=== PATIENT | male | born 1945 | race Caucasian/White ===

== ENCOUNTER 2022-11-21 21:53 | Inpatient (IN) | payer MEDICARE, OTHER ==
[2022-11-21] MEDS ORDERED: SODIUM CHLORIDE 0.9% 1,000 ML IV ONE (22:37)
[2022-11-21] MEDS ORDERED: KETOROLAC 15 MG/ML 1 ML VIAL IVP STA (22:37)
[2022-11-21] MEDS ORDERED: FAMOTIDINE 20 MG/2 ML VIAL IV STA (22:38)
[2022-11-21] MEDS ORDERED: ONDANSETRON 4 MG/2 ML VIAL IVP STA (22:38)
[2022-11-21 23:48] LABS: Appearance,Urine Clear (Clear); Basophils % (A) 0 %; Bilirubin,Urine Negative (Negative); Blood,Urine Negative (Negative); Color,Urine Yellow; Eosinophils % (A) 0 %; Glucose,Urine (UA) Negative (Negative); HCT 35.9 % (39.0-53.0); HGB 12.3 gm/dL (13.0-17.5); Ketones,Urine Negative (Negative); Leukocyte Esterase,Urine Negative (Negative); Lymphocytes # (A) 0.1 k/uL (1.0-4.8); Lymphocytes % (A) 2 %; MCH 30.8 pg (25.0-35.0); MCHC 34.3 g/dL (31.0-37.0); MCV 89.8 fL (80.0-100.0); Monocytes # (A) 0.3 k/uL (0-1.0); Monocytes % (A) 5 %; Neutrophils # (A) 5.6 k/uL (1.3-7.7); Neutrophils % (A) 91 %; Nitrite,Urine Negative (Negative); PH, Urine 5.5 (5.0-8.0); Platelet Count 343 k/uL (150-450); Protein,Urine Trace (Negative); RDW 14.5 % (11.5-15.5); Specific Gravity,Urine 1.018 (1.001-1.035); Urobilinogen,Urine <2.0 mg/dL (<2.0); WBC 6.2 k/uL (3.8-10.6)
[2022-11-21 23:51] LABS: ALT 17 U/L (4-49); AST 25 U/L (17-59); African American GFR (CKD) 81 (>60 ml/min/1.73 sqM); Albumin 2.3 g/dL (3.5-5.0); Alkaline Phosphatase 113 U/L (38-126); Anion Gap 11 mmol/L; Blood Urea Nitrogen 23 mg/dL (9-20); Calcium 7.3 mg/dL (8.4-10.2); Carbon Dioxide 17 mmol/L (22-30); Chloride 93 mmol/L (98-107); Glucose 75 mg/dL (74-99); Non-African American GFR(CKD) 70 (>60 ml/min/1.73 sqM); Potassium 4.1 mmol/L (3.5-5.1); Sodium 121 mmol/L (137-145); Total Bilirubin 0.4 mg/dL (0.2-1.3); Total Protein 4.5 g/dL (6.3-8.2)
--- NOTE | 2022-11-22 00:37 | ED ---
General Adult HPI - General Chief complaint: Weakness Stated complaint: N/V/D, Weakness Time Seen by Provider: 11/21/22 22:16 Source: patient, EMS, RN notes reviewed Mode of arrival: EMS Limitations: no limitations - History of Present Illness Initial comments: 77-year-old male with past medical history significant for melanoma presents the emergency department with a chief complaint of nausea vomiting and diarrhea 1 week. Patient called his PCP earlier this afternoon and reports that some medication adjustments-[his symptoms were due to medications. He reports left lower quadrant abdominal pain. Denies any known fevers however has felt chilled. He denies any chest pain, dizziness, lightheadedness, melena, hematochezia. Patient reports that he goes to [facility] for his care. - Related Data Home Medications Medication Instructions Recorded Confirmed Atorvastatin [Lipitor] 10 mg PO HS 11/22/22 11/22/22 Clopidogrel Bisulfate [Clopidogrel] 75 mg PO DAILY 11/22/22 11/22/22 Famotidine 20 mg PO DAILY 11/22/22 11/22/22 Gabapentin [Neurontin] 100 mg PO TID 11/22/22 11/22/22 HYDROcodone/APAP 5-325MG [[place] 1 tab PO TID PRN 11/22/22 11/22/22 5-325] Lisinopril-Hctz 20-12.5 mg 1 tab PO DAILY 11/22/22 11/22/22 [Zestoretic 20-12.5] Morphine Sulfate Ir [MSIR] 15 mg PO Q6H PRN 11/22/22 11/22/22 Prochlorperazine [Compazine] 10 mg PO Q6H PRN 11/22/22 11/22/22 Allergies Allergy/AdvReac Type Severity Reaction Status Date / Time No Known Allergies Allergy Verified 11/22/22 09:31 Review of Systems ROS Statement: Those systems with pertinent positive or pertinent negative responses have been documented in the HPI. ROS Other: All systems not noted in ROS Statement are negative. 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 Eyes PERRL, EOMI intact, mucous membranes moist Respiratory: Lungs clear to auscultation bilaterally Cardiovascular: Heart rate regular rate and rhythm Abdominal: Soft without guarding or rebound, left lower quadrant abdominal tenderness Extremities: Normal inspection with full range of motion and normal capillary refill Neuroogic: alert and oriented 3, CN II-XII intact, able to ambulate with steady gait Skin: warm dry and intact with normal color Limitations: no limitations Course Vital Signs 11/21/22 11/21/22 11/22/22 22:04 23:53 06:20 Temperature 96.8 F L Pulse Rate 68 64 63 Respiratory 18 18 18 Rate Blood Pressure 101/45 94/44 99/52 O2 Sat by Pulse 95 96 96 Oximetry 11/22/22 07:00 Temperature 98.2 F Pulse Rate 93 Respiratory 18 Rate Blood Pressure 87/56 O2 Sat by Pulse 96 Oximetry - Reevaluation(s) Reevaluation #1: 11/22/22 00:37 Patient reevaluated and updated on laboratory studies. Aware awaiting CT imaging results. Reevaluation #2: 11/22/22 02:57 Patient reevaluated. Patient resting comfortably. Aware awaiting CT results. Reevaluation #3: 11/22/22 04:01 patient reevaluated. Patient aware awaiting CT results. Agreeable with the plan for admission. Medical Decision Making - Medical Decision Making Was pt. sent in by a medical professional or institution (, PA, DIE TURNER, urgent care, hospital, or chcf...) When possible be specific @ -[No] Did you speak to anyone other than the patient for history (EMS, parent, family, police, friend...)? What history was obtained from this source @ -Patients Did you review nursing and triage notes (agree or disagree)? Why? @ -[I reviewed and agree with nursing and triage notes] Were old charts reviewed (outside hosp., previous admission, EMS record, old EKG , old radiological studies, urgent care reports/EKG's, chcf records)? Report findings @ -[No old charts were reviewed] Differential Diagnosis (chest pain, altered mental status, abdominal pain women, abdominal pain men, vaginal bleeding, weakness, fever, dyspnea, syncope, headache, dizziness, GI bleed, back pain, seizure, CVA, palpatations, mental hea lth, musculoskeletal)? @ -[not applicable] EKG interpreted by me (3pts min.). @ -[As above] X-rays interpreted by me (1pt min.). @ -[None done] CT interpreted by me (1pt min.). @ -YES U/S interpreted by me (1pt. min.). @ -[None done] What testing was considered but not performed or refused? (CT, X-rays, U/S, labs)? Why? @ -[None] What meds were considered but not given or refused? Why? @ -[None] Did you discuss the management of the patient with other professionals (professionals i.e. , PA, DIE TURNER, lab, RT, psych nurse, social work case manager, geophysical data technician, teacher, risk officer, caser in)? Give summary @ -Case discussed with Dr. Gomez who agrees and accepts the patient for admission Was smoking cessation discussed for >3mins.? @ -[No] Was critical care preformed (if so, how long)? @ -[No] Were there social determinants of health that impacted care today? How? (Homelessness, low income, unemployed, alcoholism, drug addiction, transportation, low edu. Level, literacy, decrease access to med. care, custodial, rehab)? @ -[No] Was there de-escalation of care discussed even if they declined (Discuss DNR or withdrawal of care, Hospice)? DNR status @ -[No] What co-morbidities impacted this encounter? (DM, HTN, Smoking, COPD, CAD, Cancer, CVA, ARF, Chemo, Hep., AIDS, mental health diagnosis, sleep apnea, morbid obesity)? @ -Cancer Was patient admitted / discharged? Hospital course, mention meds given and route, prescriptions, significant lab abnormalities, going to OR and other pertinent info. @ -Admission. This is a 77-year-old male with past medical history significant for melanoma who presents the emergency department with nausea, vomiting, diarrhea. Patient had a thorough history and physical exam performed. Patient persistently hypotensive while in the ED. Heart rate regular rate and rhythm, lungs clear to auscultation, left lower quadrant abdominal tenderness. No guarding no rebound. Patient had laboratory studies which revealed WBC 6.2, hemoglobin 12.3 sodium is 121, potassium 4.1, chloride 93 BUN 23, creatinine 1.04 lactic acid 1.4 urinalysis negative. Covid influenza RSV negative. I interpreted the following: CT abdomen and pelvis reveals marked distention of the gallbladder with mild intrahepatic biliary dilatation, there is extensive distention of the colon which is filled with liquid stool Suggestive of low grade: Acute obstruction. I discussed the results in detail with the patient patient verbalized understanding all questions addressed. The agreeable with the plan for admission. Case discussed with Dr. Michele Macdonald who agrees and accepts the patient for admission with consult to general surgery. Patient will be kept nothing by mouth. Patient was given Toradol, Pepcid, with symptomatic improvement. Case was discussed with Dr FERGUSON., ECP who agrees with plan of care Undiagnosed new problem with uncertain prognosis? @ -[No] Drug Therapy requiring intensive monitoring for toxicity (Heparin, Nitro, Insulin, Cardizem)? @ -[No] Were any procedures done? @ -[No] Diagnosis/symptom? @ Small Bowel obstruction - Nausea, Vomiting, Diarrhea -Hyponatremia Acute, or Chronic, or Acute on Chronic? @ -Acute Uncomplicated (without systemic symptoms) or Complicated (systemic symptoms)? @ -Uncomplicated Side effects of treatment? @ -[No] Exacerbation, Progression, or Severe Exacerbation? @ -[No] Poses a threat to life or bodily function? How? (Chest pain, USA, SC, pneumonia, PE, COPD, DKA, ARF, appy, cholecystitis, CVA, Diverticulitis, Homicidal, Suicidal, threat to staff... and all critical care pts) @ -Yes, SBO - Lab Data Result diagrams: 11/21/22 23:07 11/21/22 23:07 Lab Results 11/21/22 11/21/22 11/21/22 Range/Units 23:07 23:07 23:07 WBC 6.2 (3.8-10.6) k/uL RBC 4.00 L (4.30-5.90) m/uL Hgb 12.3 L (13.0-17.5) gm/dL Hct 35.9 L (39.0-53.0) % MCV 89.8 (80.0-100.0) fL MCH 30.8 (25.0-35.0) pg MCHC 34.3 (31.0-37.0) g/dL RDW 14.5 (11.5-15.5) % Plt Count 343 (150-450) k/uL MPV 8.0 Neutrophils % 91 % Lymphocytes % 2 % Monocytes % 5 % Eosinophils % 0 % Basophils % 0 % Neutrophils # 5.6 (1.3-7.7) k/uL Lymphocytes # 0.1 L (1.0-4.8) k/uL Monocytes # 0.3 (0-1.0) k/uL Eosinophils # 0.0 (0-0.7) k/uL Basophils # 0.0 (0-0.2) k/uL Sodium 121 L (137-145) mmol/L Potassium 4.1 (3.5-5.1) mmol/L Chloride 93 L (98-107) mmol/L Carbon Dioxide 17 L (22-30) mmol/L Anion Gap 11 mmol/L BUN 23 H (9-20) mg/dL Creatinine 1.04 (0.66-1.25) mg/dL Est GFR (CKD-EPI)AfAm 81 (>60 ml/min/1.73 sqM) Est GFR (CKD-EPI)NonAf 70 (>60 ml/min/1.73 sqM) Glucose 75 (74-99) mg/dL Plasma Lactic Acid Lionel (0.7-2.0) mmol/L Calcium 7.3 L (8.4-10.2) mg/dL Total Bilirubin 0.4 (0.2-1.3) mg/dL AST 25 (17-59) U/L ALT 17 (4-49) U/L Alkaline Phosphatase 113 (38-126) U/L Total Protein 4.5 L (6.3-8.2) g/dL Albumin 2.3 L (3.5-5.0) g/dL Urine Color Yellow Urine Appearance Clear (Clear) Urine pH 5.5 (5.0-8.0) Ur Specific [place] 1.018 (1.001-1.035) Urine Protein Trace H (Negative) Urine Glucose (UA) Negative (Negative) Urine Ketones Negative (Negative) Urine Blood Negative (Negative) Urine Nitrite Negative (Negative) Urine Bilirubin Negative (Negative) Urine Urobilinogen <2.0 (<2.0) mg/dL Ur Leukocyte Esterase Negative (Negative) Influenza Type A (PCR) (Not Detectd) Influenza Type B (PCR) (Not Detectd) RSV (PCR) (Not Detectd) SARS-CoV-2 (PCR) (Not Detectd) 11/21/22 11/21/22 Range/Units 23:07 23:07 WBC (3.8-10.6) k/uL RBC (4.30-5.90) m/uL Hgb (13.0-17.5) gm/dL Hct (39.0-53.0) % MCV (80.0-100.0) fL MCH (25.0-35.0) pg MCHC (31.0-37.0) g/dL RDW (11.5-15.5) % Plt Count (150-450) k/uL MPV Neutrophils % % Lymphocytes % % Monocytes % % Eosinophils % % Basophils % % Neutrophils # (1.3-7.7) k/uL Lymphocytes # (1.0-4.8) k/uL Monocytes # (0-1.0) k/uL Eosinophils # (0-0.7) k/uL Basophils # (0-0.2) k/uL Sodium (137-145) mmol/L Potassium (3.5-5.1) mmol/L Chloride (98-107) mmol/L Carbon Dioxide (22-30) mmol/L Anion Gap mmol/L BUN (9-20) mg/dL Creatinine (0.66-1.25) mg/dL Est GFR (CKD-EPI)AfAm (>60 ml/min/1.73 sqM) Est GFR (CKD-EPI)NonAf (>60 ml/min/1.73 sqM) Glucose (74-99) mg/dL Plasma Lactic Acid Lionel 1.4 (0.7-2.0) mmol/L Calcium (8.4-10.2) mg/dL Total Bilirubin (0.2-1.3) mg/dL AST (17-59) U/L ALT (4-49) U/L Alkaline Phosphatase (38-126) U/L Total Protein (6.3-8.2) g/dL Albumin (3.5-5.0) g/dL Urine Color Urine Appearance (Clear) Urine pH (5.0-8.0) Ur Specific [place] (1.001-1.035) Urine Protein (Negative) Urine Glucose (UA) (Negative) Urine Ketones (Negative) Urine Blood (Negative) Urine Nitrite (Negative) Urine Bilirubin (Negative) Urine Urobilinogen (<2.0) mg/dL Ur Leukocyte Esterase (Negative) Influenza Type A (PCR) Not Detected (Not Detectd) Influenza Type B (PCR) Not Detected (Not Detectd) RSV (PCR) Not Detected (Not Detectd) SARS-CoV-2 (PCR) Not Detected (Not Detectd) Disposition Clinical Impression: Nausea and vomiting, Diarrhea, Hyponatremia, Small bowel obstruction Disposition: ADMITTED IP TO THIS HOSP Condition: Fair Is patient prescribed a controlled substance at d/c from ED?: No Time of Disposition: 04:01
[2022-11-22] MEDS ORDERED: SODIUM CHLORIDE 0.9% 1,000 ML IV ONE (03:42)
[2022-11-22] MEDS ORDERED: ONDANSETRON 4 MG/2 ML VIAL IVP PRN (03:45)
[2022-11-22] MEDS ORDERED: NALOXONE 0.4 MG/ML 1 ML VIAL IV PRN (03:45)
[2022-11-22] MEDS ORDERED: MORPHINE SULFATE 4 MG/ML SYRINGE IVP STA (04:00)
[2022-11-22] MEDS ORDERED: FAMOTIDINE 20 MG/2 ML VIAL IV STA (04:00)
[2022-11-22] MEDS: SODIUM CHLORIDE 0.9% 1,000 ML IV SCH ×2 (04:13→17:49)
--- NOTE | 2022-11-22 04:18 | CT ---
EXAM: CT Abdomen and Pelvis With Intravenous Contrast CLINICAL HISTORY: ITS.REASON CT Reason: LLQ abdominal pain TECHNIQUE: Axial computed tomography images of the abdomen and pelvis with intravenous contrast. CTDI is 12.5 mGy and DLP is 610 mGy-cm. This CT exam was performed using one or more of the following dose reduction techniques: automated exposure control, adjustment of the mA and/or kV according to patient size, and/or use of iterative reconstruction technique. COMPARISON: No relevant prior studies available. FINDINGS: Lung bases: Unremarkable. No mass. No consolidation. ABDOMEN: Liver: See below. Gallbladder and bile ducts: Marked distention of the gallbladder with mild intrahepatic biliary ductal dilatation. No calcified stones. Pancreas: Unremarkable. No mass. No ductal dilation. Spleen: Unremarkable. No splenomegaly. Adrenals: Unremarkable. No mass. Kidneys and ureters: 3.2 x 2.3 cm hypodensity midpole left kidney. 4 x 4.1 cm upper pole left renal hypodensity. No hydronephrosis. Stomach and bowel: There is extensive distention of the colon which is filled with liquid stool. No mucosal thickening. PELVIS: Appendix: No findings to suggest acute appendicitis. Bladder: Unremarkable. No mass. Reproductive: Unremarkable as visualized. ABDOMEN and PELVIS: Intraperitoneal space: Unremarkable. No free air. No significant fluid collection. Bones/joints: No acute fracture. No dislocation. Soft tissues: Unremarkable. Vasculature: Mild atheromatous plaque within the abdominal aorta with high-grade stenosis involving the external iliac arteries bilaterally. No abdominal aortic aneurysm. Lymph nodes: Unremarkable. No enlarged lymph nodes. IMPRESSION: Low-grade colonic obstruction
--- NOTE | 2022-11-22 09:13 | XR ---
EXAMINATION TYPE: XR chest 1V confirm line [facility] DATE OF EXAM: 11/22/2022 COMPARISON: NONE HISTORY: NG tube placement TECHNIQUE: Single frontal view of the chest is obtained. FINDINGS: There is no focal air space opacity, pleural effusion, or pneumothorax seen. The cardiac silhouette size is within normal limits. The osseous structures are intact. Elevated left hemidiaph ragm. Tip of the NG tube likely within the gastric fundus. Biapical pleural thickening. Atherosclerot ic change aorta. Underlying COPD. IMPRESSION: 1. Tip of the NG tube likely at the level of the gastric fundus.
--- NOTE | 2022-11-22 12:10 | CT ---
EXAMINATION TYPE: CT abdomen pelvis wo con DATE OF EXAM: 11/22/2022 COMPARISON: 11/22/2022 HISTORY: 77-year-old male colon obstruction . CT DLP: 377.3 mGycm. Automated exposure control for dose reduction was used. TECHNIQUE: Contiguous axial scanning of the abdomen and pelvis without IV contrast. Rectal contrast w as administered. Coronal and sagittal reconstructions performed. FINDINGS: Heart normal size. There is a small 1 cm anterior pericardial effusion The interval. Dependent atelectasis posterior lung bases. Tiny hiatal hernia. Redemonstrated hydropic gallbladder at 5.4 cm wide but without any surrounding inflammation. Noncontr ast appearance of the liver, spleen, pancreas within normal limits. Cysts within the left kidney neno uring up to 4.7 cm. Larger upper pole cyst seems to be mildly complex with thin septation. 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 Rectal contrast has been administered and reaches the cecum which is distended up to 8.1 cm. Transver se colon dilated up to 6.5 cm. No obstructing lesion seen. Mild reflux into the terminal ileum. Diffusely distended and fluid-filled small bowel loops are present throughout with variable dilatatio n up to 3.4 cm. No obvious free fluid or free air is seen. Mild to moderate atherosclerotic calcifications abdominal aorta. There is mild fusiform ectasia infra renal abdominal aorta to 2.6 cm. More moderate to severe prostatic calcifications in the iliac arteri es. No obvious mesenteric or retroperitoneal adenopathy. Extensive heterogeneous sclerosis and lucencies throughout the visualized spine, sacrum, pelvis, prox imal femurs suggestive of osseous metastatic disease that should be correlated clinically. IMPRESSION: 1. Ongoing distention of the colon. Cecum is dilated up to 8.1 cm and transverse colon up to 6.5 cm. There is also variable diffuse small bowel dilatation up to 3.4 cm with prominent fluid-filled small bowel loops. After the administration of rectal contrast, no transition point is identified in the c olon. Consider a marked generalized ileus rather than obstruction. 2. The gallbladder remains hydropic at 5.4 cm wide, probably due to fasting state. 3. Diffuse sclerotic and lucent lesions throughout the osseous structures of the abdomen and pelvis worrisome for osseous metastatic disease. Correlate for any known diagnosis. Further workup as clinic ally indicated.
[2022-11-22] MEDS ORDERED: HYDROmorphone 1 MG/ML 1 ML SYRINGE IVP PRN (12:26)
--- NOTE | 2022-11-22 12:36 | P.GSCN ---
History of Present Illness Consult date: 11/22/22 History of present illness: CHIEF COMPLAINT: Abdominal pain HISTORY OF PRESENT ILLNESS: This is a 77-year-old male who presented to the hospital with complaints of nausea vomiting, diarrhea and intermittent abdominal pain. Patient reports that he has had the abdominal pain for about 2 weeks. The pain worsened yesterday. He reports that he'll have sharp episodes of intermittent pain located in the middle of his abdomen. He has been having nausea and vomiting. Last episode of vomiting was 2 days ago. He's also been having flatus and loose stools. Last episode of diarrhea was last night. He reports decrease in appetite. Initially he had been constipated due to his medications and required to be on laxatives and stool softeners and then started to have diarrhea. Patient had computed tomography scan completed, but reports low-grade colonic obstruction. Patient denies any prior history of bowel obstruction. Does have a surgical history of appendectomy and hernia repair. 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 Patient follows at [facility]. Patient did have an NG tube placed in ER. Patient accidentally pulled out NG tube during the night. On Plavix for stent in the left leg. Last dose 11/21/2022. PAST MEDICAL HISTORY: Melanoma shoulder with metastases to spine, peripheral vascular disease, hypertension, hyperlipidemia PAST SURGICAL HISTORY: Appendectomy, hernia repair MEDICATIONS: See below ALLERGIES: See below SOCIAL HISTORY: No illicit drug use. Positive smoker REVIEW OF SYSTEMS: CONSTITUTIONAL: Denies fever or chills. HEENT: Denies blurred vision, vision changes, or eye pain. Denies hemoptysis CARDIOVASCULAR: Denies chest pain or pressure. RESPIRATORY: No shortness of breath. GASTROINTESTINAL: See HPI for pertinent findings HEMATOLOGIC: Denies bleeding disorders. GENITOURINARY: Denies any blood in urine or increased urinary frequency. SKIN: Denies pruitis. Denies rash. PHYSICAL EXAM: VITAL SIGNS: Reviewed GENERAL: Well-developed in no acute distress. HEENT: No sclera icterus. Extraocular movements grossly intact. Moist buccal mucosa. Head is atraumatic, normocephalic. No nasal drainage. ABDOMEN: Soft. Mildly distended. Tenderness across lower abdomen more so on the left. No guarding. NEUROLOGIC: Alert and oriented. Cranial nerves II through XII grossly intact. LABORATORY DATA: WBC 6.2 Hgb 12.3 platelets 343 Sodium 121 potassium 4.1 creatinine 1.04 Peptic acid 1.4 LFTs normal Urinalysis negative for infection Influenza, RSV and COVID-19 not detected IMAGING: Computed tomography scan abdomen and pelvis reporting low-grade colonic obstruction. Also noted marked distention of the gallbladder with mild intrahepatic biliary ductal dilation. No calcified stones. Computed tomography scan abdomen and pelvis with rectal contrast reports ongoing distention of the colon. Syncopal is dilated up to 8.1 cm and transverse colon up to 6.5 cm. There is also variable diffuse small bowel dilatation up to 3.4 cm with prominent fluid-filled small bowel loops. After administration of rectal contrast. No transition point is identified in the colon. Considered a marked generalized ileus rather than obstruction. Gallbladder remains hydropic at 5.4 cm probably due to fasting state. Diffuse sclerotic and lucent lesions throughout the osseous structures of the abdomen and pelvis worrisome for osseous metastatic disease. ASSESSMENT: 1. Abdominal pain with nausea vomiting and diarrhea 2. Ileus 3. Distention of gallbladder with mild intrahepatic biliary ductal dilatation noted on computed tomography scan 4. History of melanoma with metastases 5. Hyponatremia PLAN: -HIDA scan ordered to evaluate the gallbladder -Keep patient nothing by mouth -Continue supportive care -Hold Plavix -Medicine service to manage hyponatremia -Continue IV fluid Physician Polo Coach note has been reviewed by physician. Signing provider agrees with the documented findings, assessment, and plan of care. Past Medical History Past Medical History: Cancer, Hyperlipidemia Additional Past Medical History / Comment(s): Melanoma shoulder w/ mets to spine History of Any Multi-Drug Resistant Organisms: None Reported Past Surgical History: Appendectomy, Hernia Repair Additional Past Surgical History / Comment(s): stent in left leg Past Psychological History: No Psychological Hx Reported Smoking Status: Current every day smoker Past Alcohol Use History: None Reported Past Drug Use History: None Reported Medications and Allergies Home Medications Medication Instructions Recorded Confirmed Type Atorvastatin [Lipitor] 10 mg PO HS 11/22/22 11/22/22 History Clopidogrel Bisulfate [Clopidogrel] 75 mg PO DAILY 11/22/22 11/22/22 History Famotidine 20 mg PO DAILY 11/22/22 11/22/22 History Gabapentin [Neurontin] 100 mg PO TID 11/22/22 11/22/22 History HYDROcodone/APAP 5-325MG [[place] 1 tab PO TID PRN 11/22/22 11/22/22 History 5-325] Lisinopril-Hctz 20-12.5 mg 1 tab PO DAILY 11/22/22 11/22/22 History [Zestoretic 20-12.5] Morphine Sulfate Ir [MSIR] 15 mg PO Q6H PRN 11/22/22 11/22/22 History Prochlorperazine [Compazine] 10 mg PO Q6H PRN 11/22/22 11/22/22 History Allergies Allergy/AdvReac Type Severity Reaction Status Date / Time No Known Allergies Allergy Verified 11/22/22 09:31 Surgical - Exam Vital Signs Temp Pulse Resp BP Pulse Ox 96.8 F L 68 18 101/45 95 11/21/22 22:04 11/21/22 22:04 11/21/22 22:04 11/21/22 22:04 11/21/22 22:04 Results - Labs 11/21/22 23:07 11/21/22 23:07 Abnormal Lab Results - Last 24 Hours (Table) 11/21/22 11/21/22 11/21/22 Range/Units 23:07 23:07 23:07 RBC 4.00 L (4.30-5.90) m/uL Hgb 12.3 L (13.0-17.5) gm/dL Hct 35.9 L (39.0-53.0) % Lymphocytes # 0.1 L (1.0-4.8) k/uL Sodium 121 L (137-145) mmol/L Chloride 93 L (98-107) mmol/L Carbon Dioxide 17 L (22-30) mmol/L BUN 23 H (9-20) mg/dL Calcium 7.3 L (8.4-10.2) mg/dL Total Protein 4.5 L (6.3-8.2) g/dL Albumin 2.3 L (3.5-5.0) g/dL Urine Protein Trace H (Negative) Diabetes panel 11/21/22 Range/Units 23:07 Sodium 121 L (137-145) mmol/L Potassium 4.1 (3.5-5.1) mmol/L Chloride 93 L (98-107) mmol/L Carbon Dioxide 17 L (22-30) mmol/L BUN 23 H (9-20) mg/dL Creatinine 1.04 (0.66-1.25) mg/dL Glucose 75 (74-99) mg/dL Calcium 7.3 L (8.4-10.2) mg/dL AST 25 (17-59) U/L ALT 17 (4-49) U/L Alkaline Phosphatase 113 (38-126) U/L Total Protein 4.5 L (6.3-8.2) g/dL Albumin 2.3 L (3.5-5.0) g/dL Calcium panel 11/21/22 Range/Units 23:07 Calcium 7.3 L (8.4-10.2) mg/dL Albumin 2.3 L (3.5-5.0) g/dL Pituitary panel 11/21/22 Range/Units 23:07 Sodium 121 L (137-145) mmol/L Potassium 4.1 (3.5-5.1) mmol/L Chloride 93 L (98-107) mmol/L Carbon Dioxide 17 L (22-30) mmol/L BUN 23 H (9-20) mg/dL Creatinine 1.04 (0.66-1.25) mg/dL Glucose 75 (74-99) mg/dL Calcium 7.3 L (8.4-10.2) mg/dL Adrenal panel 11/21/22 Range/Units 23:07 Sodium 121 L (137-145) mmol/L Potassium 4.1 (3.5-5.1) mmol/L Chloride 93 L (98-107) mmol/L Carbon Dioxide 17 L (22-30) mmol/L BUN 23 H (9-20) mg/dL Creatinine 1.04 (0.66-1.25) mg/dL Glucose 75 (74-99) mg/dL Calcium 7.3 L (8.4-10.2) mg/dL Total Bilirubin 0.4 (0.2-1.3) mg/dL AST 25 (17-59) U/L ALT 17 (4-49) U/L Alkaline Phosphatase 113 (38-126) U/L Total Protein 4.5 L (6.3-8.2) g/dL Albumin 2.3 L (3.5-5.0) g/dL Assessment and Plan Plan: Patient's HIDA scan was reviewed. His gallbladder his shows nonvisualization of the gallbladder suggestive of cystic duct obstruction/acute/chronic cholecystitis. Patient will undergo laparoscopically cholecystectomy when medically optimized.
--- NOTE | 2022-11-22 15:38 | NM ---
Nuclear medicine hepatobiliary scan. HISTORY: Pain. DOSAGE: The patient received 8 0z Ensure plus and 4.7 mCi of Technetium 99m Choletec. FINDINGS: There is normal hepatic extraction. The gallbladder is not seen by 2 hours. Correlate for cholecystitis. There is biliary to bowel clearance by 25 minutes. IMPRESSION: 1. Correlate for cholecystitis.
[2022-11-22] MEDS: GABAPENTIN 100 MG CAP PO SCH ×2 (16:36→20:42)
--- NOTE | 2022-11-22 17:34 | P.CNPUL ---
History of Present Illness Consult date: 11/22/22 Requesting physician: Michele Macdonald Chief complaint: Abdominal pain. History of present illness: Pulmonary consult dated 11/22/2022. This is a 77-year-old male with a history of melanoma, who is followed at the [facility], who presents to the emergency department, on November 21, complaining of nausea, vomiting, diarrhea, and dehydration. The patient has not been feeling well for about a week or so. Recently, the patient has been having issues with constipation, related to narcotics. Subsequent to that, the patient started taking medications to relieve the constipation, and he developed significant diarrhea and dehydration. The patient has been complaining of abdominal pain, diffusely, with some localization in the right upper quadrant. Some of this pain is epigastric and even left-sided. His past medical history is primarily positive for the melanoma, with metastasis, and he is a current every day smoker. I was called by the surgeon, because of the patient's hyponatremia, and, because the patient will eventually need a cholecystectomy. Current laboratory data includes a white count 6.2, hemoglobin 12.3, hematocrit 35.9, and a platelet count was normal. Sodium is 121, potassium 4.1, chlorides 93, CO2 17, anion gap 11, BUN 23, and creatinine 1.04. Calcium is 7.3. Albumin is 2.3. Urine is negative. Testing for influenza, RSV, and coronavirus were all negative. Computed tomography scan of the abdomen shows a low-grade colonic obstruction. Repeat computed tomography scan of the abdomen and pelvis shows ongoing distention of the colon but the cecum dilated up to 8.1 cm. In addition, there are lesions throughout the osseous structures of the abdomen and pelvis, worrisome for osseous metastatic disease, likely from his melanoma. The patient's HIDA scan suggested cholecystitis. The patient is scheduled for tentative laparoscopic cholecystectomy tomorrow. Review of Systems REVIEW OF SYSTEMS: CONSTITUTIONAL: [Negative.] NEUROLOGIC: [ Negative.] HEENT: [ Negative.] CARDIAC: [Negative.] PULMONARY: [Negative.] GI: Nausea, vomiting, diarrhea, and abdominal pain. : [Negative.] RHEUMATOLOGIC: [ Negative.] IMMUNOLOGIC: [ Negative.] ENDOCRINE: [Negative. 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 History of Any Multi-Drug Resistant Organisms: None Reported Past Surgical History: Appendectomy, Hernia Repair Additional Past Surgical History / Comment(s): stent in left leg Past Psychological History: No Psychological Hx Reported Smoking Status: Current every day smoker Past Alcohol Use History: None Reported Past Drug Use History: None Reported Medications and Allergies Home Medications Medication Instructions Recorded Confirmed Type Atorvastatin [Lipitor] 10 mg PO HS 11/22/22 11/22/22 History Clopidogrel Bisulfate [Clopidogrel] 75 mg PO DAILY 11/22/22 11/22/22 History Famotidine 20 mg PO DAILY 11/22/22 11/22/22 History Gabapentin [Neurontin] 100 mg PO TID 11/22/22 11/22/22 History HYDROcodone/APAP 5-325MG [[place] 1 tab PO TID PRN 11/22/22 11/22/22 History 5-325] Lisinopril-Hctz 20-12.5 mg 1 tab PO DAILY 11/22/22 11/22/22 History [Zestoretic 20-12.5] Morphine Sulfate Ir [MSIR] 15 mg PO Q6H PRN 11/22/22 11/22/22 History Prochlorperazine [Compazine] 10 mg PO Q6H PRN 11/22/22 11/22/22 History Allergies Allergy/AdvReac Type Severity Reaction Status Date / Time No Known Allergies Allergy Verified 11/22/22 09:31 Physical Exam Osteopathic Statement: *. No significant issues noted on an osteopathic structural exam other than those noted in the History and Physical/Consult. Vitals: Vital Signs Temp Pulse Pulse Resp BP BP Pulse Ox 11/22/22 15:51 97.9 F 88 17 102/64 97 11/22/22 08:15 85 18 94 L 11/22/22 07:00 98.2 F 93 18 87/56 96 11/22/22 06:20 63 18 99/52 96 11/21/22 23:53 64 18 94/44 96 11/21/22 22:04 96.8 F L 68 18 101/45 95 Intake and Output 11/22/22 11/22/22 11/22/22 06:59 14:59 22:59 Other: Weight 63.503 kg No acute distress, oriented 3. Currently on room air. No respiratory distress. HEENT examination is grossly unremarkable. Mucous membranes are moist. No oral lesions. Neck supple. Full range of motion. No adenopathy thyromegaly or neck vein distention. Cardiovascular examination reveals regular rhythm rate. S1-S2 normal. No S3 or S4. No discernible murmur noted. Heart rate 88 bpm. Lungs reveal clear breath sounds. Breath sounds are equal bilaterally. No adventitious lung sounds including wheezes rhonchi or crackles. Room air saturation 97%. Abdomen is mildly tender, with most of the patient's pain in the epigastric area and left upper quadrant. Extremities are intact. No cyanosis clubbing or edema. Skin is without rash or lesion. Neurologic examination is brief but nonfocal. Results - Laboratory Findings CBC and BMP: 11/21/22 23:07 11/21/22 23:07 Abnormal lab findings: Abnormal Labs 11/21/22 11/21/22 11/21/22 23:07 23:07 23:07 RBC 4.00 L Hgb 12.3 L Hct 35.9 L Lymphocytes # 0.1 L Sodium 121 L Chloride 93 L Carbon Dioxide 17 L BUN 23 H Calcium 7.3 L Total Protein 4.5 L Albumin 2.3 L Urine Protein Trace H - Diagnostic Findings Chest x-ray: image reviewed Assessment and Plan Assessment: Acute cholecystitis, with tentative laparoscopic cholecystectomy planned for 11/23/2022. Hypovolemic hyponatremia. This in part related to the patient's recent nausea, vomiting, and diarrhea. History of metastatic melanoma. Plan: Plan dated 11/22/2022. The patient is examined, and observation, room 153. Is currently on room air. Is not experiencing any shortness of breath or difficulty with breathing. The patient has pain in the abdomen, diffusely, some on the right upper quadrant, mo st of the pain seems to be epigastric and left upper quadrant. It may be referred. The patient should get significant fluid resuscitation with saline, at 150 mL an hour. A morning electrolyte profile should be done. Additional recommendations and suggestions are forthcoming. The patient should be nothing by mouth after midnight. Additional recommendations and suggestions are forthcoming. He is stable hemodynamically, and from the respiratory standpoint. Time with Patient: Greater than 30
[2022-11-22] MEDS: ATORVASTATIN 10 MG TAB PO SCH (20:42)
[2022-11-22 21:23] LABS: African American GFR (CKD) 88 (>60 ml/min/1.73 sqM); Anion Gap 14 mmol/L; Blood Urea Nitrogen 21 mg/dL (9-20); Carbon Dioxide 16 mmol/L (22-30); Chloride 97 mmol/L (98-107); Glucose 82 mg/dL (74-99); Non-African American GFR(CKD) 76 (>60 ml/min/1.73 sqM); Potassium 3.6 mmol/L (3.5-5.1); Sodium 127 mmol/L (137-145)
--- NOTE | 2022-11-23 05:39 | HP ---
HISTORY AND PHYSICAL HISTORY OF PRESENT ILLNESS: Came in with hyponatremia, right upper quadrant pain. He denies any chest pain, lightheadedness . HOME MEDICINES: 1. Plavix 75 mg daily. 2. Lipitor 10. 3. Neurontin 100 t.i.d. 4. [place] 5/325 t.i.d. 5. Lisinopril hydrochlorothiazide 20/12.5 daily. 6. MS-IR 50 q.6h. 7. Compazine 10 q.6 hours. FAMILY HISTORY: Reviewed. PAST MEDICAL HISTORY: Cancer, shoulder to spine. PAST SURGICAL HISTORY: Appendectomy, hernia repair. ALLERGIES: Negative. PHYSICAL EXAMINATION: VITAL SIGNS: Reviewed. GENERAL: He is sitting comfortably in bed. LUNGS: Clear. HEENT: Head is normocephalic, atraumatic. ABDOMEN: Soft. Right upper quadrant tenderness. EXTREMITIES: No cyanosis, clubbing, or edema. NEUROLOGIC: Cranial nerves intact. VITAL SIGNS: Temperature 96.8, blood pressure 101 to 99 over 45 to 60, temperature 96.8, pulse 60s, respiratory rate 16 to 18, and O2 95 to 96. ASSESSMENT: History of melanoma, nausea, vomiting, diarrhea, hypertension, in the ER, hyponatremia, sodium 121, supposed to get an abnormal HIDA scan. Supposed to get a cholecystectomy tomorrow. We will give normal saline overnight. CAT scan shows possible obstruction, biliary dilation. Surgery has seen him, could not get him for surgery tomorrow. Prognosis guarded. Please see further orders. Check sodium in the morning. MMODL / IJN: [id number] /
[2022-11-23] MEDS: SODIUM CHLORIDE 0.9% 1,000 ML IV SCH ×4 (07:19→23:02)
[2022-11-23 07:53] LABS: Basophils % (A) 0 %; Eosinophils % (A) 0 %; HCT 37.5 % (39.0-53.0); HGB 12.3 gm/dL (13.0-17.5); Hypochromasia Slight; Lymphocytes # (A) 0.1 k/uL (1.0-4.8); Lymphocytes % (A) 3 %; MCH 30.7 pg (25.0-35.0); MCHC 32.8 g/dL (31.0-37.0); MCV 93.5 fL (80.0-100.0); Mean Platelet Volume 7.5; Monocytes # (A) 0.3 k/uL (0-1.0); Monocytes % (A) 7 %; Neutrophils # (A) 4.5 k/uL (1.3-7.7); Neutrophils % (A) 87 %; Platelet Count 394 k/uL (150-450); RBC 4.01 m/uL (4.30-5.90); RDW 14.5 % (11.5-15.5); WBC 5.2 k/uL (3.8-10.6)
[2022-11-23] MEDS: GABAPENTIN 100 MG CAP PO SCH ×3 (08:12→16:30)
[2022-11-23] MEDS: FAMOTIDINE 20 MG TAB PO SCH (08:12)
[2022-11-23] MEDS: LISINOPRIL-HCTZ 20-12.5 MG 1 EACH TAB PO SCH (08:13)
[2022-11-23] MEDS: PIPERACILLIN-TAZOBACTAM 3.375 GM in SODIUM CHLORIDE 0.9% 100 ML IVPB SCH ×2 (08:32→16:13)
[2022-11-23 08:56] LABS: ALT 18 U/L (4-49); AST 25 U/L (17-59); African American GFR (CKD) >90 (>60 ml/min/1.73 sqM); Albumin 2.2 g/dL (3.5-5.0); Alkaline Phosphatase 107 U/L (38-126); Anion Gap 15 mmol/L; Blood Urea Nitrogen 17 mg/dL (9-20); Calcium 8.2 mg/dL (8.4-10.2); Carbon Dioxide 12 mmol/L (22-30); Chloride 103 mmol/L (98-107); Glucose 96 mg/dL (74-99); Non-African American GFR(CKD) 80 (>60 ml/min/1.73 sqM); Potassium 3.8 mmol/L (3.5-5.1); Sodium 130 mmol/L (137-145); Total Bilirubin 0.4 mg/dL (0.2-1.3); Total Protein 4.4 g/dL (6.3-8.2)
[2022-11-23] MEDS ORDERED: CLOPIDOGREL 75 MG TAB PO SCH (09:00)
--- NOTE | 2022-11-23 11:29 | P.PN ---
Subjective Progress Note Date: 11/23/22 Principal diagnosis: Right upper quadrant abdominal pain. Pulmonary consult dated 11/22/2022. This is a 77-year-old male with a history of melanoma, who is followed at the [facility], who presents to the emergency department, on November 21, complaining of nausea, vomiting, diarrhea, and dehydration. The patient has not been feeling well for about a week or so. Recently, the patient has been having issues with constipation, related to narcotics. Subsequent to that, the patient started taking medications to relieve the constipation, and he developed significant diarrhea and dehydration. The patient has been complaining of abdominal pain, diffusely, with some localization in the right upper quadrant. Some of this pain is epigastric and even left-sided. His past medical history is primarily positive for the melanoma, with metastasis, and he is a current every day smoker. I was called by the surgeon, because of the patient's hyponatremia, and, because the patient will eventually need a cholecystectomy. Current laboratory data includes a white count 6.2, hemoglobin 12.3, hematocrit 35.9, and a platelet count was normal. Sodium is 121, potassium 4.1, chlorides 93, CO2 17, anion gap 11, BUN 23, and creatinine 1.04. Calcium is 7.3. Albumin is 2.3. Urine is negative. Testing for influenza, RSV, and coronavirus were all negative. Computed tomography scan of the abdomen shows a low-grade colonic obstruction. Repeat computed tomography scan of the abdomen and pelvis shows ongoing distention of the colon but the cecum dilated up to 8.1 cm. In addition, there are lesions throughout the osseous structures of the abdomen and pelvis, worrisome for osseous metastatic disease, likely from his melanoma. The patient's HIDA scan suggested cholecystitis. The patient is scheduled for tentative laparoscopic cholecystectomy tomorrow. Progress note dated 11/23/2022. 77-year-old male with history of metastatic melanoma, who came to the hospital with complaints of pain in the abdomen. He was found to have cholelithiasis/cholecystitis. The patient is scheduled for a laparoscopic cholecystectomy today. He was hyponatremic initially, but today sodium, with fluid resuscitation, is 130. Currently he is on room air. I did notify the surgeon, that I thought the patient was stable for surgery. White count 5.2, hemoglobin 12.3, hematocrit 37.5, and platelet count normal. Sodium up to 03/07/2020, potassium 3.8, chlorides 103, CO2 12, anion gap 15, BUN 17, creatinine 0.93. Urine is negative. Objective - Vital Signs Vital signs: Vital Signs Temp 98.0 F 11/22/22 20:00 Pulse 63 11/22/22 20:00 Resp 14 11/22/22 20:00 BP 111/69 11/22/22 20:00 Pulse Ox 96 11/22/22 20:00 FiO2 Intake & Output 11/22/22 11/23/22 11/23/22 18:59 06:59 18:59 Intake Total 930 Balance 930 Weight 63.503 kg Intake: Intake, IV Titration 630 Amount Sodium Chloride 0.9% 1, 630 000 ml @ 150 mls/hr IV . Q6H40M [facility] Rx#:[id number] Oral 300 Other: Voiding Method Toilet # Voids 3 # Bowel Movements 2 - Exam No acute distress, oriented 3. Currently on room air. No respiratory distress. HEENT examination is grossly unremarkable. Mucous membranes are moist. No oral lesions. Neck supple. Full range of motion. No adenopathy thyromegaly or neck vein distention. Cardiovascular examination reveals regular rhythm rate. S1-S2 normal. No S3 or S4. No discernible murmur noted. Heart rate 63 bpm. Lungs reveal clear breath sounds. Breath sounds are equal bilaterally. No adventitious lung sounds including wheezes rhonchi or crackles. Room air saturation 96 %. Abdomen is mildly tender, with most of the patient's pain in the epigastric area and left upper quadrant. Extremities are intact. No cyanosis clubbing or edema. Skin is without rash or lesion. Neurologic examination is brief but nonfocal. - Labs CBC & Chem 7: 11/23/22 06:39 11/23/22 06:39 Labs: Abnormal Lab Results - Last 24 Hours (Table) 11/22/22 11/23/22 11/23/22 Range/Units 21:08 06:39 06:39 RBC 4.01 L (4.30-5.90) m/uL Hgb 12.3 L (13.0-17.5) gm/dL Hct 37.5 L (39.0-53.0) % Lymphocytes # 0.1 L (1.0-4.8) k/uL Sodium 127 L 130 L (137-145) mmol/L Chloride 97 L (98-107) mmol/L Carbon Dioxide 16 L 12 L (22-30) mmol/L BUN 21 H (9-20) mg/dL Calcium 8.0 L 8.2 L (8.4-10.2) mg/dL Total Protein 4.4 L (6.3-8.2) g/dL Albumin 2.2 L (3.5-5.0) g/dL Assessment and Plan Assessment: Acute cholecystitis, with tentative laparoscopic cholecystectomy planned for 11/23/2022. Hypovolemic hyponatremia. This in part related to the patient's recent nausea, vomiting, and diarrhea. History of metastatic melanoma. Plan: Plan dated 11/22/2022. The patient is examined, and observation, room 153. Is currently on room air. Is not experiencing any shortness of breath or difficulty with breathing. The patient has pain in the abdomen, diffusely, some on the right upper quadrant, most of the pain seems to be epigastric and left upper quadrant. It may be referred. The patient should get significant fluid resuscitation with saline, at 150 mL an hour. A morning electrolyte profile should be done. Additional recommendations and suggestions are forthcoming. The patient should be nothing by mouth after midnight. Additional recommendations and suggestions are forthcoming. He is stable hemodynamically, and from the respiratory standpoint. Plan dated 11/24/2019. The patient's sodium is up to 130. Initially, the sodium was 121. I increased the patient saline up to 150 mL an hour. I repeated a sodium last night at 9:00, and then he had another one today, this morning. In my opinion, the patient is appropriate for surgery today. The patient's on room air. Labs, x- rays, and medications are reviewed. We will continue to follow make recommendations where appropriate. Time with Patient: Less than 30
--- NOTE | 2022-11-23 12:15 | P.PN ---
Subjective Progress Note Date: 11/23/22 CHIEF COMPLAINT: Abdominal pain HISTORY OF PRESENT ILLNESS: Patient does complain of right upper quadrant abdominal pain. Denies any nausea or vomiting. Did have a bowel movement. Afebrile. Sodium has improved from 127 to 130. WBC is 5.2 Hgb 12.3 platelets 394 potassium 3.8 creatinine 0.93. HIDA scan reports that the gallbladder is not seen by 2 hours correlate for cholecystitis. PHYSICAL EXAM: VITAL SIGNS: Reviewed. GENERAL: Well-developed in no acute distress. ABDOMEN: Soft. Nondistended. Tenderness with palpation in the right upper quadrant NEUROLOGIC: Alert and oriented. Cranial nerves II through XII grossly intact. ASSESSMENT: 1. Cholecystitis 2. Ileus 3. Hyponatremia improving 4. History of melanoma with metastasis PLAN: -Patient scheduled for laparoscopic cholecystectomy today -Keep patient nothing by mouth -Continue antibiotics -Continue supportive care -Hold Plavix Physician Cheese Cook note has been reviewed by physician. Signing provider agrees with the documented findings, assessment, and plan of care. Objective - Vital Signs Vital signs: Vital Signs Temp 96 F L 11/23/22 11:56 Pulse 61 11/23/22 11:56 Resp 16 11/23/22 11:56 BP 108/71 11/23/22 11:56 Pulse Ox 90 L 11/23/22 11:56 FiO2 Intake & Output 11/22/22 11/23/22 11/23/22 18:59 06:59 18:59 Intake Total 930 Balance 930 Weight 63.503 kg Intake: Intake, IV Titration 630 Amount Sodium Chloride 0.9% 1, 630 000 ml @ 150 mls/hr IV . Q6H40M [facility] Rx#:[id number] Oral 300 Other: Voiding Method Toilet # Voids 3 # Bowel Movements 2 - Labs CBC & Chem 7: 11/23/22 06:39 11/23/22 06:39 Labs: Abnormal Lab Results - Last 24 Hours (Table) 11/22/22 11/23/22 11/23/22 Range/Units 21:08 06:39 06:39 RBC 4.01 L (4.30-5.90) m/uL Hgb 12.3 L (13.0-17.5) gm/dL Hct 37.5 L (39.0-53.0) % Lymphocytes # 0.1 L (1.0-4.8) k/uL Sodium 127 L 130 L (137-145) mmol/L Chloride 97 L (98-107) mmol/L Carbon Dioxide 16 L 12 L (22-30) mmol/L BUN 21 H (9-20) mg/dL Calcium 8.0 L 8.2 L (8.4-10.2) mg/dL Total Protein 4.4 L (6.3-8.2) g/dL Albumin 2.2 L (3.5-5.0) g/dL
[2022-11-23] MEDS ORDERED: LIDOCAINE 1%-EPI 1:100,000 50 ML VIAL SQ ONE ×2 (17:49→18:21)
[2022-11-23] MEDS ORDERED: LACTATED RINGERS 1,000 ML IV ONE (17:51)
[2022-11-23] MEDS ORDERED: ONDANSETRON 4 MG/2 ML VIAL IVP ONE (17:59)
[2022-11-23] MEDS ORDERED: ROCURONIUM 10 MG/ML (5 ML VIAL) IV ONE (18:02)
[2022-11-23] MEDS ORDERED: PHENYLEPHRINE-0.9% NACL SYG 1,000 MCG/10 ML SYRINGE ONE (18:02)
[2022-11-23] MEDS ORDERED: PROPOFOL 10 MG/ML 20 ML VIAL IV ONE (18:02)
[2022-11-23] MEDS ORDERED: LIDOCAINE 1% INJ 10MG/ML (20 ML MDV) ONE (18:02)
[2022-11-23] MEDS ORDERED: DEXAMETHASONE SOD PHOSPHATE 4 MG/ML 1 ML VIAL IVP ONE (18:02)
[2022-11-23] MEDS ORDERED: NEOSTIGMINE 1 MG/ML 10 ML VIAL ONE (18:02)
[2022-11-23] MEDS ORDERED: GLYCOPYRROLATE 0.2 MG/ML 2 ML VIAL ONE (18:02)
[2022-11-23] MEDS ORDERED: SUCCINYLCHOLINE CHLORIDE 200 MG/10 ML VIAL IV ONE (18:02)
[2022-11-23] MEDS ORDERED: fentaNYL (PF) 50 MCG/ML 2 ML AMP ONE (18:02)
[2022-11-23] MEDS ORDERED: HYDROmorphone 1 MG/ML 1 ML SYRINGE IVP PRN (18:39)
--- NOTE | 2022-11-23 18:39 | P.OP ---
Date of Procedure: 11/23/22 Preoperative Diagnosis: Acute cholecystitis Postoperative Diagnosis: Acute gangrenous cholecystitis Procedure(s) Performed: Laparoscopic cholecystectomy Transversus abdominis plane block Anesthesia: KENNETH Surgeon: Dima Doll Estimated Blood Loss (ml): 10 Pathology: other (Gallbladder) Condition: stable Disposition: PACU Operative Findings: Necrotic gallbladder Description of Procedure: The patient was placed on the operating table. The patient received a general endotracheal tube anesthesia. The patients abdomen was prepped and draped in the usual sterile fashion. Through an infraumbilical stab incision, the fascia of the anterior abdominal wall was grasped with a pair of Kochers and then the Veress needle was placed in the peritoneal cavity. Position of the Veress needle was confirmed with positive drop test. The abdomen was then insufflated. After adequate insufflation, the 10 mm trocar was placed in the peritoneal cavity. Following this the laparoscope was placed in the peritoneal cavity. The patient was placed in the head-up, right side up position and then a 5 mm trocar was placed in the right lateral and right subcostal position under direct visualization. A 8 mm trocar was placed in the epigastric position. A four-quadrant transverse abdominal skin block was performed with 1% local Xylocaine. The gallbladder is visualized. There is evidence of green patchy necrosis. The gallbladder was grasped in the fundus and infundibulum. Traction on the gallbladder was placed in the lateral and the cephalad positions. The triangle of Calot was visualized.. The cystic duct was bluntly dissected until the union of the cystic duct and common bile duct was seen. A critical view of safety was achieved. The cystic duct was then divided and sealed with the Harmonic scissors. A PDS Endoloop was then placed throughout the cystic duct stump. The cystic artery divided and sealed with the Harmonic scissors. The gallbladder was then removed from the liver bed using Harmonic scissors. The gallbladder was then extracted through the epigastric port site. Operative field was checked for any bleeding spots and Harmonic scissors was used to coagulate the liver bed. The abdomen was irrigated. The trocars were removed. The skin was closed using interrupted 3-0 Vicryl suture. Dermabond dressing were applied. The patient tolerated the procedure well.
[2022-11-23] MEDS ORDERED: ENALAPRILAT 1.25 MG/ML 1 ML VIAL IVP ONE ×2 (19:09→19:20)
[2022-11-23 20:14] LABS: Glucose,Whole Blood 100 mg/dL (70-110)
[2022-11-23 20:33] LABS: Glucose,Whole Blood 107 mg/dL (70-110)
[2022-11-23] MEDS: NOREPINEPHRINE 4 MG in SODIUM CHLORIDE 0.9% 250 ML IV SCH ×2 (20:45→23:15)
[2022-11-23] MEDS ORDERED: Magnesium Replacement Protocol 1 EACH MISC MISCELLANE PRN (21:24)
[2022-11-23] MEDS ORDERED: Potassium Replacement Protocol 1 EACH MISC MISCELLANE PRN (21:24)
[2022-11-23 21:30] LABS: ABG Base Excess -13.2 mmol/L; ABG HCO3 17 mmol/L (21-25); ABG PCO2 54 mmHg (35-45); ABG PO2 164 mmHg (83-108); ABG TCO2 18 mmol/L (19-24)
[2022-11-23 21:30] LABS: INR 1.3 (<1.2); Prothrombin Time 13.5 sec (10.0-12.5)
[2022-11-23 21:33] LABS: Allen Test Performed? NO
[2022-11-23 21:42] LABS: ALT 19 U/L (4-49); AST 31 U/L (17-59); African American GFR (CKD) >90 (>60 ml/min/1.73 sqM); Albumin <1.0 g/dL (3.5-5.0); Alkaline Phosphatase 48 U/L (38-126); Anion Gap 4 mmol/L; Blood Urea Nitrogen 10 mg/dL (9-20); Carbon Dioxide 10 mmol/L (22-30); Chloride 127 mmol/L (98-107); Glucose 79 mg/dL (74-99); HCT 31.6 % (39.0-53.0); HGB 10.2 gm/dL (13.0-17.5); Hypochromasia Slight; MCH 30.8 pg (25.0-35.0); MCHC 32.4 g/dL (31.0-37.0); MCV 95.1 fL (80.0-100.0); Magnesium 1.2 mg/dL (1.6-2.3); Mean Platelet Volume 7.7; Non-African American GFR(CKD) >90 (>60 ml/min/1.73 sqM); Platelet Count 335 k/uL (150-450); RBC 3.32 m/uL (4.30-5.90); RDW 14.5 % (11.5-15.5); Sodium 141 mmol/L (137-145); Total Bilirubin <0.1 mg/dL (0.2-1.3); Total Protein <2.0 g/dL (6.3-8.2); WBC 6.7 k/uL (3.8-10.6)
[2022-11-23 21:46] LABS: Calcium 3.5 mg/dL (8.4-10.2); Potassium 1.6 mmol/L (3.5-5.1)
[2022-11-23] MEDS: DEXTROSE 5% IN WATER 1,000 ML with SODIUM BICARB (1 MEQ/ML) 100 ML IV SCH (22:10)
[2022-11-23 22:13] LABS: ALT 38 U/L (4-49); AST 63 U/L (17-59); African American GFR (CKD) 68 (>60 ml/min/1.73 sqM); Albumin 1.6 g/dL (3.5-5.0); Alkaline Phosphatase 103 U/L (38-126); Anion Gap 9 mmol/L; Blood Urea Nitrogen 18 mg/dL (9-20); Calcium 7.3 mg/dL (8.4-10.2); Carbon Dioxide 14 mmol/L (22-30); Chloride 110 mmol/L (98-107); Glucose 144 mg/dL (74-99); Non-African American GFR(CKD) 59 (>60 ml/min/1.73 sqM); Potassium 3.5 mmol/L (3.5-5.1); Sodium 133 mmol/L (137-145); Total Bilirubin 0.3 mg/dL (0.2-1.3); Total Protein 3.4 g/dL (6.3-8.2)
--- NOTE | 2022-11-23 22:21 | XR ---
EXAMINATION: XR chest 1V portable 11/23/2022 9:26 PM CLINICAL INDICATION: PHH; intubation TECHNIQUE: Departmental protocol COMPARISON: 11/22/2022 6:15 AM FINDINGS: ET tube tip superimposed over the mid trachea. NG tube present, but the NG tube port is seen superimp osed over the distal thoracic esophagus; NG tube may be better placed if advanced 10 cm distally. EKG leads. There is sushila lung consolidation throughout the right lower lung zone and developing lung consolidat ion throughout the bilateral upper, mid, and lower lung zones, with relative sparing of the periphery . The pattern suggests infection, but the timeline suggests pulmonary edema. The pleural spaces are negative. The cardiac silhouette is not enlarged. The skeletal structures and soft tissues are negative for acute findings. IMPRESSION: NG tube comments. Marked bilateral lung parenchymal abnormalities, greater on the right.
[2022-11-23 22:41] LABS: HCT 34.3 % (39.0-53.0); HGB 11.3 gm/dL (13.0-17.5); Hypochromasia Slight; MCH 30.7 pg (25.0-35.0); MCV 93.1 fL (80.0-100.0); Mean Platelet Volume 7.9; Platelet Count 418 k/uL (150-450); RBC 3.68 m/uL (4.30-5.90); RDW 14.8 % (11.5-15.5); WBC 11.1 k/uL (3.8-10.6)
[2022-11-23 23:23] LABS: INR 1.3 (<1.2); Partial Thromboplastin Time 22.9 sec (22.0-30.0); Prothrombin Time 13.6 sec (10.0-12.5)
[2022-11-23 23:33] LABS: Band Neutrophils % 35 %; Lymphocytes # (M) 0.47 k/uL (1.0-4.8); Metamyelocytes # (M) 0.47 k/uL (0); Metamyelocytes % 7 %; Neutrophils % (M) 45 %; Nucleated Red Blood Cells 0 /100 WBC (0-0); Total Cells Counted 100
[2022-11-24] MEDS: ATORVASTATIN 10 MG TAB PO SCH ×2 (00:25→00:26)
[2022-11-24] MEDS: GABAPENTIN 100 MG CAP PO SCH ×3 (00:26→15:39)
[2022-11-24] MEDS: VASOPRESSIN 20 UNIT in SODIUM CHLORIDE 0.9% 50 ML IV SCH ×3 (00:40→18:02)
[2022-11-24] MEDS: PIPERACILLIN-TAZOBACTAM 3.375 GM in SODIUM CHLORIDE 0.9% 100 ML IVPB SCH ×4 (00:46→23:30)
[2022-11-24] MEDS: NOREPINEPHRINE 4 MG in SODIUM CHLORIDE 0.9% 250 ML IV SCH ×5 (00:53→08:10)
[2022-11-24] MEDS: POTASSIUM BICARBONATE/CIT AC 20 MEQ TABLET.EFF NG-TUBE SCH ×3 (00:54→05:55)
[2022-11-24] MEDS: fentaNYL (PF). 1,000 MCG in SODIUM CHLORIDE 0.9% 80 ML IV SCH ×2 (03:39→18:20)
[2022-11-24] MEDS: SODIUM CHLORIDE 0.9% 1,000 ML IV SCH ×2 (05:17→09:40)
[2022-11-24 06:11] LABS: ABG HCO3 14 mmol/L (21-25); ABG Oxygen Saturation 99.3 % (94-97); ABG PCO2 28 mmHg (35-45); ABG PH 7.29 (7.35-7.45); ABG PO2 301 mmHg (83-108); ABG TCO2 14 mmol/L (19-24); Allen Test Performed? Yes
[2022-11-24 06:24] LABS: HCT 36.5 % (39.0-53.0); HGB 11.6 gm/dL (13.0-17.5); Hypochromasia Moderate; MCH 30.5 pg (25.0-35.0); MCHC 31.7 g/dL (31.0-37.0); MCV 96.3 fL (80.0-100.0); Mean Platelet Volume 7.7; Platelet Count 359 k/uL (150-450); RBC 3.79 m/uL (4.30-5.90); RDW 14.6 % (11.5-15.5); WBC 19.5 k/uL (3.8-10.6)
[2022-11-24 06:26] LABS: Glucose,Whole Blood 202 mg/dL (70-110)
[2022-11-24 06:33] LABS: African American GFR (CKD) 60 (>60 ml/min/1.73 sqM); Anion Gap 16 mmol/L; Blood Urea Nitrogen 20 mg/dL (9-20); Calcium 7.7 mg/dL (8.4-10.2); Carbon Dioxide 12 mmol/L (22-30); Chloride 108 mmol/L (98-107); Glucose 143 mg/dL (74-99); Non-African American GFR(CKD) 52 (>60 ml/min/1.73 sqM); Potassium 4.3 mmol/L (3.5-5.1); Sodium 136 mmol/L (137-145)
--- NOTE | 2022-11-24 06:55 | P.EN ---
code blue event please refer to paper charting for exact sequence of events. patient is status post lap nakita, he was just sent in from recovery , when became unresponsive PEA arrest, CPR initiated following ACLS protocol, 2 rounds of epi given, intubated and ROSC achieved. SBP 127 CXR post intubation , suggested new onset consolidation on the right upper and lower lungs, suspicious for pulmonary edema , less likely infectious process due to timeline I updated patient and answered all her questions
--- NOTE | 2022-11-24 07:48 | XR ---
EXAM: XR Chest, 1 View CLINICAL HISTORY: ITS.REASON XR Reason: Tube placement TECHNIQUE: Frontal view of the chest. COMPARISON: No relevant prior studies available. FINDINGS: Lungs: Unremarkable. No consolidation. Pleural space: Unremarkable. No pneumothorax. Heart: Heart size is upper limits of normal. Mediastinum: Unremarkable. Bones/joints: Unremarkable. Tubes, lines and devices: Endotracheal tube with its tip above the marsha. Esophageal catheter is present with its tip overlying the gastric fundus. No lobar consolidations. No effusions. Slight prominence of the pulmonary vascularity. IMPRESSION: 1. Appropriately positioned support catheters 2. No acute pulmonary pathology.
[2022-11-24] MEDS: DEXTROSE 5% IN WATER 1,000 ML with SODIUM BICARB (1 MEQ/ML) 100 ML IV SCH ×3 (08:08→18:56)
[2022-11-24] MEDS ORDERED: CISATRACURIUM 2 MG/ML 5 ML VIAL IV ONE ×2 (08:16→09:07)
[2022-11-24 08:41] LABS: Band Neutrophils % 7 %; Metamyelocytes % 1 %; Monocytes # (M) 1.56 k/uL (0-1.0); Myelocytes % 1 %; Neutrophils % (M) 83 %; Nucleated Red Blood Cells 0 /100 WBC (0-0); Total Cells Counted 200
[2022-11-24 09:01] LABS: Crenated RBC Present; Poikilocytosis (M) Present
[2022-11-24] MEDS: CHLORHEXIDINE GLUCONATE 15 ML CUP MUCOUS MEM SCH ×2 (09:06→20:52)
[2022-11-24] MEDS: FAMOTIDINE 20 MG TAB PO SCH (09:06)
[2022-11-24 09:17] LABS: ABG Base Excess -11.9 mmol/L; ABG HCO3 16 mmol/L (21-25); ABG Oxygen Saturation 98.5 % (94-97); ABG PCO2 40 mmHg (35-45); ABG PH 7.21 (7.35-7.45); ABG PO2 156 mmHg (83-108); ABG TCO2 17 mmol/L (19-24); Allen Test Performed? Yes
--- NOTE | 2022-11-24 09:21 | XR ---
EXAMINATION TYPE: XR chest 1V DATE OF EXAM: 11/24/2022 COMPARISON: 11/24/2022 HISTORY: Line placement TECHNIQUE: Single frontal view of the chest is obtained. FINDINGS: ET tube 7 cm above marsha. Left-sided central line tip overlying SVC. No pneumothorax. NG tube in good position. Diffuse emphysematous changes. Chronic right-sided rib deformity. Hypertrophic degenerative changes of the spine. Bilateral lower lobe subsegmental consolidation greater on the le ft. IMPRESSION: 1. COPD correlate for interstitial pneumonitis or venous congestion with basilar infiltrate and tiny effusion.
[2022-11-24] MEDS: LISINOPRIL-HCTZ 20-12.5 MG 1 EACH TAB PO SCH (09:38)
[2022-11-24] MEDS: NOREPINEPHRINE 32 MG in SODIUM CHLORIDE 0.9% 218 ML IV SCH ×2 (09:43→23:15)
--- NOTE | 2022-11-24 11:05 | PCN ---
PROCEDURE NOTE PROCEDURE PERFORMED: Left subclavian triple-lumen catheter. PREOPERATIVE DIAGNOSES: 1. Administration of fluids and pressors. 2. Hypotension. POSTOPERATIVE DIAGNOSES: 1. Administration of fluids and pressors. 2. Hypotension. OPERATORS: 1. Dr. Dale. 2. Dr. Kowalski. There were informed consent and universal time-out. The patient's procedure took place in room 257. TRIPLE-LUMEN CATHETER PLACEMENT: INDICATION: Hemodynamic monitoring/intravenous access. A time-out was completed verifying correct patient, procedure, site, positioning, and implant(s) or special equipment if applicable. The patient was placed in a dependent position appropriate for triple lumen catheter placement based on the vein to be cannulated. The patient's left shoulder was prepped and draped in sterile fashion. 1% lidocaine was used to anesthetize the surrounding skin area. A triple-lumen 9F Cordis catheter was introduced into the left subclavian vein using Seldinger technique. The catheter was threaded smoothly over the guide wire and appropriate blood return was obtained. Each lumen of the catheter was evacuated of air and flushed with sterile saline. The catheter was then sutured in place to the skin, and a sterile dressing was applied by the nurse. Perfusion to the extremity distal to the point of catheter insertion was checked and found to be adequate. There was good blood return from all 3 ports. A chest x-ray was ordered to check placement to make sure the tip of the catheter was at the junction of the superior vena cava and right atrium. There was no immediate complication. MMODL / IJN: [id number] /
--- NOTE | 2022-11-24 11:05 | PCN ---
PROCEDURE NOTE PROCEDURE PERFORMED: Left femoral arterial line. PREOPERATIVE DIAGNOSES: 1. Frequent blood draws and blood gas monitoring. 2. Hypotension. POSTOPERATIVE DIAGNOSES: 1. Frequent blood draws and blood gas monitoring. 2. Hypotension. OPERATORS: 1. Dr. Dale. 2. Dr. Kowalski. There were informed consent and universal time-out. The patient's procedure took place in room 257. ARTERIAL LINE PLACEMENT: INDICATION: Hemodynamic monitoring. A time-out was completed verifying correct patient, procedure, site, positioning, and implant(s) or special equipment if applicable. Biju's test was performed to ensure adequate perfusion. The patient's left groin was prepped and draped in sterile fashion. 1% lidocaine was used to anesthetize the area. An 18G Arrow arterial line was introduced into the left femoral artery. The catheter was threaded over the guide wire, and the needle was removed with appropriate pulsatile blood return. Blood loss was minimal. The catheter was then sutured in place to the skin, and a sterile dressing was applied. Perfusion to the extremity distal to the point of catheter insertion was checked and found to be adequate. The patient tolerated the procedure well. There was no immediate complication. The waveform was a bit dampened. I have asked Respiratory to draw blood gas from that line to see if it is consistent with the blood gas drawn from the other arterial line. MMODL / IJN: [id number] /
--- NOTE | 2022-11-24 11:43 | P.PN ---
Subjective Progress Note Date: 11/24/22 Principal diagnosis: Right upper quadrant abdominal pain. Pulmonary consult dated 11/22/2022. This is a 77-year-old male with a history of melanoma, who is followed at the [facility], who presents to the emergency department, on November 21, complaining of nausea, vomiting, diarrhea, and dehydration. The patient has not been feeling well for about a week or so. Recently, the patient has been having issues with constipation, related to narcotics. Subsequent to that, the patient started taking medications to relieve the constipation, and he developed significant diarrhea and dehydration. The patient has been complaining of abdominal pain, diffusely, with some localization in the right upper quadrant. Some of this pain is epigastric and even left-sided. His past medical history is primarily positive for the melanoma, with metastasis, and he is a current every day smoker. I was called by the surgeon, because of the patient's hyponatremia, and, because the patient will eventually need a cholecystectomy. Current laboratory data includes a white count 6.2, hemoglobin 12.3, hematocrit 35.9, and a platelet count was normal. Sodium is 121, potassium 4.1, chlorides 93, CO2 17, anion gap 11, BUN 23, and creatinine 1.04. Calcium is 7.3. Albumin is 2.3. Urine is negative. Testing for influenza, RSV, and coronavirus were all negative. Computed tomography scan of the abdomen shows a low-grade colonic obstruction. Repeat computed tomography scan of the abdomen and pelvis shows ongoing distention of the colon but the cecum dilated up to 8.1 cm. In addition, there are lesions throughout the osseous structures of the abdomen and pelvis, worrisome for osseous metastatic disease, likely from his melanoma. The patient's HIDA scan suggested cholecystitis. The patient is scheduled for tentative laparoscopic cholecystectomy tomorrow. Progress note dated 11/23/2022. 77-year-old male with history of metastatic melanoma, who came to the hospital with complaints of pain in the abdomen. He was found to have cholelithiasis/cholecystitis. The patient is scheduled for a laparoscopic cholecystectomy today. He was hyponatremic initially, but today sodium, with fluid resuscitation, is 130. Currently he is on room air. I did notify the surgeon, that I thought the patient was stable for surgery. White count 5.2, hemoglobin 12.3, hematocrit 37.5, and platelet count normal. Sodium up to 03/07/2020, potassium 3.8, chlorides 103, CO2 12, anion gap 15, BUN 17, creatinine 0.93. Urine is negative. Progress note dated 11/24/2022. 77-year-old male status post laparoscopic cholecystectomy for gangrenous gallbladder. The patient apparently was transferred, from recovery area to the general medical floor, and, apparently developed a cardiopulmonary arrest, requiring a long resuscitation time of about 30 minutes. Currently, the patient is in the intensive care unit, room 257, on the ventilator. He is on the volume assist control, rate 22, tidal volume 400, FiO2 50%, and PEEP of 8. Blood gases, on 70%, show pO2 301, pCO2 28, and pH is 7.29. The patient is on propofol at 50 mcg/kg/m, norepinephrine at 40 mcg/m, vasopressin at 0.03 units per minute, fentanyl 1 mcg/kg/h, and a sodium bicarbonate ampules of sodium bicarbonate and D5W 100 mL an hour. Current labs include a white count 19.5, hemoglobin 11.6, hematocrit 36.5, with a normal platelet count. Repeat blood gases show pO2 156, pCO2 40, pH is 7.21. Sodium 136, potassium 4.3, chlorides 108, CO2 12, BUN 20, creatinine 1.32. The patient's troponin was 6.650. The patient's chest x-rays consistent with COPD, with some interstitial pneumonitis, or mild venous congestion. Objective - Vital Signs Vital signs: Vital Signs Temp 97.5 F L 11/24/22 08:00 Pulse 76 11/24/22 11:00 Resp 22 11/24/22 11:00 BP 71/47 11/24/22 09:30 Pulse Ox 97 11/24/22 11:00 FiO2 30 11/24/22 09:21 Intake & Output 11/23/22 11/24/22 11/24/22 18:59 06:59 18:59 Intake Total 700 2286.727 1321.215 Output Total 5 47 40 Balance 695 2239.727 1281.215 Weight 63.503 kg 65 kg Intake: IV 700 927 648 Art Line 27 18 Dextrose 5% in Water 1, 800 500 000 ml @ 100 mls/hr IV . Q11H [facility] with Sodium Bicarb (1 Meq/ml) 100 ml Rx#:[id number] Invasive Line 6 30 Piperacillin-Tazobactam 3 100 100 .375 gm In Sodium Chloride 0.9% 100 ml @ 25 mls/hr IVPB Q8HR [facility] Rx# :[id number] Intake, IV Titration 1359.727 613.215 Amount Norepinephrine 32 mg In 19.485 Sodium Chloride 0.9% 218 ml @ 0.03 MCG/KG/MIN 0. 914 mls/hr IV .Q24H [facility] Rx#:[id number] Norepinephrine 4 mg In 1209.959 508 Sodium Chloride 0.9% 250 ml @ 0.05 MCG/KG/MIN 12. 097 mls/hr IV .Q21H [facility] Rx#:[id number] Vasopressin 20 unit In 25.627 Sodium Chloride 0.9% 50 ml @ 0.03 UNITS/MIN 4.59 mls/hr IV .Q11H7M [facility] Rx# :[id number] fentaNYL (PF). 1,000 mcg 5.133 In Sodium Chloride 0.9% 80 ml @ 0.5 MCG/KG/HR 3. 175 mls/hr IV .Q24H [facility] Rx#:[id number] propofoL 1,000 mg In 119.008 85.73 Empty Bag 1 bag @ 15 MCG/ KG/MIN 5.715 mls/hr IV . [id number] [facility] Rx#:[id number] Oral 60 Output: Urine 47 40 Estimated Blood Loss 5 Other: Voiding Method Indwelling Catheter Indwelling Catheter # Voids 0 ABP, PAP, CO, CI - Last Documented Arterial Blood Pressure 128/59 - Exam No acute distress, sedated, with an orally placed endotracheal tube and NG tube. HEENT examination is grossly unremarkable. Neck supple. Full range of motion. No adenopathy thyromegaly or neck vein distention. Cardiovascular examination reveals regular rhythm rate. S1-S2 normal. No S3 or S4. No discernible murmur noted. Heart rate 76 bpm. Heart sounds are distant. Lungs reveal scattered rhonchi. Minimal crackles. Breath sounds equal bilaterally. Saturations are in the mid to high 90s. Abdomen soft, without bowel sounds. Incisions are clean and dry. Extremities are intact. No cyanosis clubbing or edema. Skin is without rash or lesion. Neurologic examination cannot be evaluated at this time. - Labs CBC & Chem 7: 11/24/22 06:17 11/24/22 06:17 Labs: Abnormal Lab Results - Last 24 Hours (Table) 11/23/22 11/23/22 11/23/22 Range/Units 21:19 21:19 21:19 WBC (3.8-10.6) k/uL RBC 3.32 L (4.30-5.90) m/uL Hgb 10.2 L (13.0-17.5) gm/dL Hct 31.6 L (39.0-53.0) % Neutrophils # (Manual) (1.3-7.7) k/uL Lymphocytes # (Manual) 0.47 L (1.0-4.8) k/uL Monocytes # (Manual) (0-1.0) k/uL Metamyelocytes # (Man) 0.47 H (0) k/uL Myelocytes # (Manual) (0) k/uL PT 13.5 H (10.0-12.5) sec INR 1.3 H (<1.2) ABG pH (7.35-7.45) ABG pCO2 (35-45) mmHg ABG pO2 (83-108) mmHg ABG HCO3 (21-25) mmol/L ABG Total CO2 (19-24) mmol/L ABG O2 Saturation (94-97) % Sodium (137-145) mmol/L Potassium 1.6 L* (3.5-5.1) mmol/L Chloride 127 H (98-107) mmol/L Carbon Dioxide 10 L (22-30) mmol/L Creatinine 0.62 L (0.66-1.25) mg/dL Glucose (74-99) mg/dL POC Glucose (mg/dL) (70-110) mg/dL Calcium 3.5 L* (8.4-10.2) mg/dL Magnesium 1.2 L (1.6-2.3) mg/dL Total Bilirubin <0.1 L (0.2-1.3) mg/dL AST (17-59) U/L Troponin I (0.000-0.034) ng/mL Total Protein <2.0 L (6.3-8.2) g/dL Albumin <1.0 L (3.5-5.0) g/dL 10/19/23 10/19/23 10/19/23 Range/Units 21:21 21:52 21:52 WBC 11.1 H (3.8-10.6) k/uL RBC 3.68 L (4.30-5.90) m/uL Hgb 11.3 L (13.0-17.5) gm/dL Hct 34.3 L (39.0-53.0) % Neutrophils # (Manual) (1.3-7.7) k/uL Lymphocytes # (Manual) (1.0-4.8) k/uL Monocytes # (Manual) (0-1.0) k/uL Metamyelocytes # (Man) (0) k/uL Myelocytes # (Manual) (0) k/uL PT (10.0-12.5) sec INR (<1.2) ABG pH 7.10 L* (7.35-7.45) ABG pCO2 54 H (35-45) mmHg ABG pO2 164 H (83-108) mmHg ABG HCO3 17 L (21-25) mmol/L ABG Total CO2 18 L (19-24) mmol/L ABG O2 Saturation 98.0 H (94-97) % Sodium 133 L (137-145) mmol/L Potassium (3.5-5.1) mmol/L Chloride 110 H (98-107) mmol/L Carbon Dioxide 14 L (22-30) mmol/L Creatinine (0.66-1.25) mg/dL Glucose 144 H (74-99) mg/dL POC Glucose (mg/dL) (70-110) mg/dL Calcium 7.3 L (8.4-10.2) mg/dL Magnesium (1.6-2.3) mg/dL Total Bilirubin (0.2-1.3) mg/dL AST 63 H (17-59) U/L Troponin I (0.000-0.034) ng/mL Total Protein 3.4 L (6.3-8.2) g/dL Albumin 1.6 L (3.5-5.0) g/dL 11/23/22 11/24/22 11/24/22 Range/Units 21:52 06:00 06:17 WBC 19.5 H (3.8-10.6) k/uL RBC 3.79 L (4.30-5.90) m/uL Hgb 11.6 L (13.0-17.5) gm/dL Hct 36.5 L (39.0-53.0) % Neutrophils # (Manual) 17.50 H (1.3-7.7) k/uL Lymphocytes # (Manual) 0.20 L (1.0-4.8) k/uL Monocytes # (Manual) 1.56 H (0-1.0) k/uL Metamyelocytes # (Man) 0.20 H (0) k/uL Myelocytes # (Manual) 0.20 H (0) k/uL PT 13.6 H (10.0-12.5) sec INR 1.3 H (<1.2) ABG pH 7.29 L (7.35-7.45) ABG pCO2 28 L (35-45) mmHg ABG pO2 301 H (83-108) mmHg ABG HCO3 14 L (21-25) mmol/L ABG Total CO2 14 L (19-24) mmol/L ABG O2 Saturation 99.3 H (94-97) % Sodium (137-145) mmol/L Potassium (3.5-5.1) mmol/L Chloride (98-107) mmol/L Carbon Dioxide (22-30) mmol/L Creatinine (0.66-1.25) mg/dL Glucose (74-99) mg/dL POC Glucose (mg/dL) (70-110) mg/dL Calcium (8.4-10.2) mg/dL Magnesium (1.6-2.3) mg/dL Total Bilirubin (0.2-1.3) mg/dL AST (17-59) U/L Troponin I (0.000-0.034) ng/mL Total Protein (6.3-8.2) g/dL Albumin (3.5-5.0) g/dL 11/24/22 11/24/22 11/24/22 Range/Units 06:17 06:24 09:14 WBC (3.8-10.6) k/uL RBC (4.30-5.90) m/uL Hgb (13.0-17.5) gm/dL Hct (39.0-53.0) % Neutrophils # (Manual) (1.3-7.7) k/uL Lymphocytes # (Manual) (1.0-4.8) k/uL Monocytes # (Manual) (0-1.0) k/uL Metamyelocytes # (Man) (0) k/uL Myelocytes # (Manual) (0) k/uL PT (10.0-12.5) sec INR (<1.2) ABG pH 7.21 L (7.35-7.45) ABG pCO2 (35-45) mmHg ABG pO2 156 H (83-108) mmHg ABG HCO3 16 L (21-25) mmol/L ABG Total CO2 17 L (19-24) mmol/L ABG O2 Saturation 98.5 H (94-97) % Sodium 136 L (137-145) mmol/L Potassium (3.5-5.1) mmol/L Chloride 108 H (98-107) mmol/L Carbon Dioxide 12 L (22-30) mmol/L Creatinine 1.32 H (0.66-1.25) mg/dL Glucose 143 H (74-99) mg/dL POC Glucose (mg/dL) 202 H (70-110) mg/dL Calcium 7.7 L (8.4-10.2) mg/dL Magnesium (1.6-2.3) mg/dL Total Bilirubin (0.2-1.3) mg/dL AST (17-59) U/L Troponin I (0.000-0.034) ng/mL Total Protein (6.3-8.2) g/dL Albumin (3.5-5.0) g/dL 11/24/22 Range/Units 10:00 WBC (3.8-10.6) k/uL RBC (4.30-5.90) m/uL Hgb (13.0-17.5) gm/dL Hct (39.0-53.0) % Neutrophils # (Manual) (1.3-7.7) k/uL Lymphocytes # (Manual) (1.0-4.8) k/uL Monocytes # (Manual) (0-1.0) k/uL Metamyelocytes # (Man) (0) k/uL Myelocytes # (Manual) (0) k/uL PT (10.0-12.5) sec INR (<1.2) ABG pH (7.35-7.45) ABG pCO2 (35-45) mmHg ABG pO2 (83-108) mmHg ABG HCO3 (21-25) mmol/L ABG Total CO2 (19-24) mmol/L ABG O2 Saturation (94-97) % Sodium (137-145) mmol/L Potassium (3.5-5.1) mmol/L Chloride (98-107) mmol/L Carbon Dioxide (22-30) mmol/L Creatinine (0.66-1.25) mg/dL Glucose (74-99) mg/dL POC Glucose (mg/dL) (70-110) mg/dL Calcium (8.4-10.2) mg/dL Magnesium (1.6-2.3) mg/dL Total Bilirubin (0.2-1.3) mg/dL AST (17-59) U/L Troponin I 6.650 H* (0.000-0.034) ng/mL Total Protein (6.3-8.2) g/dL Albumin (3.5-5.0) g/dL Microbiology - Last 24 Hours (Table) 11/22/22 05:32 Stool Culture - Preliminary Stool Assessment and Plan Assessment: Acute cholecystitis, S/P laparoscopic cholecystectomy 11/23/2022, postop day #1. Gangrenous cholecystitis. Status post cardiopulmonary arrest, with prolonged resuscitation time and eventual return of spontaneous circulation. Rule out myocardial ischemia. Anion gap metabolic acidosis. Acute kidney injury, likely secondary to ATN. Severe hypotension, possibly related to myocardial injury, and/or sepsis. Hypovolemic hyponatremia. This in part related to the patient's recent nausea, vomiting, and diarrhea. History of metastatic melanoma. Plan: Plan dated 11/22/2022. The patient is examined, and observation, room 153. Is currently on room air. Is not experiencing any shortness of breath or difficulty with breathing. The patient has pain in the abdomen, diffusely, some on the right upper quadrant, most of the pain seems to be epigastric and left upper quadrant. It may be referred. The patient should get significant fluid resuscitation with saline, at 150 mL an hour. A morning electrolyte profile should be done. Additional recommendations and suggestions are forthcoming. The patient should be nothing by mouth after midnight. Additional recommendations and suggestions are forthcoming. He is stable hemodynamically, and from the respiratory standpoint. Plan dated 11/24/2019. The patient's sodium is up to 130. Initially, the sodium was 121. I increased the patient saline up to 150 mL an hour. I repeated a sodium last night at 9:00, and then he had another one today, this morning. In my opinion, the patient is appropriate for surgery today. The patient's on room air. Labs, x- rays, and medications are reviewed. We will continue to follow make recommendations where appropriate. Plan dated 11/24/2022. The exact events are unclear, but the patient did sustain a significant cardiopulmonary arrest, with prolonged cardiopulmonary resuscitation, of 30 minutes, and eventual return of spontaneous circulation. The patient's in the intensive care unit, on the mechanical ventilator. He has an anion gap metabolic acidosis, and may have sustained a myocardial infarction. He is currently on propofol, norepinephrine, vasopressin, fentanyl, and a sodium bicarbonate drip. Labs, x-rays, and medications are reviewed. The patient's prognosis is poor, given his age, and his prolonged resuscitation. His troponin, was elevated. Additional recommendations and suggestions are forthcoming. Cardiology and nephrology should see the patient. Time with Patient: Greater than 30
[2022-11-24 12:04] LABS: Glucose,Whole Blood 218 mg/dL (70-110)
[2022-11-24] MEDS ORDERED: DEXTROSE 50% SYRINGE 50 ML IVP PRN ×2 (12:07)
[2022-11-24] MEDS: INSULIN ASPART (NovoLOG) 100 UNIT/ML VIAL SQ SCH ×3 (12:45→23:29)
--- NOTE | 2022-11-24 13:08 | P.PN ---
Subjective Progress Note Date: 11/24/22 CHIEF COMPLAINT: Abdominal pain HISTORY OF PRESENT ILLNESS: Patient postop day #1 status post laparoscopic cholecystectomy for acute gangrenous cholecystitis. Yesterday patient was transferred from recovery to regular medical floor and then developed cardiopulmonary arrest. Patient did require CPR for about 30 minutes and did have return of spontaneous circulation. Patient is intubated and on mechanical ventilation in the ICU. He is requiring Levophed for BP support. Urine output is decreased. WBC 11.1 up to 19.5 Hgb 11.6 with 359 sodium 136 potassium 4.3 creatinine 1.32 PHYSICAL EXAM: VITAL SIGNS: Reviewed. GENERAL: Well-developed in no acute distress. ABDOMEN: Soft. Nondistended. Tenderness with palpation in the right upper quadrant NEUROLOGIC: Alert and oriented. Cranial nerves II through XII grossly intact. ASSESSMENT: 1. Acute gangrenous cholecystitis status post laparoscopic cholecystectomy 2. Status post cardiopulmonary arrest 3. Ileus 4. Hyponatremia resolved 5. History of melanoma with metastasis 6. Elevated troponin 7. Acute kidney injury PLAN: -Continue ICU management -Continue supportive care -Consult cardiology regarding cardiopulmonary arrest, elevated troponin -Consult nephrology for acute kidney injury -Continue antibiotics -Hold Plavix Physician [employer] note has been reviewed by physician. Signing provider agrees with the documented findings, assessment, and plan of care. Objective - Vital Signs Vital signs: Vital Signs Temp 97.5 F L 11/24/22 08:00 Pulse 68 11/24/22 10:00 Resp 22 11/24/22 10:00 BP 71/47 11/24/22 09:30 Pulse Ox 99 11/24/22 10:00 FiO2 30 11/24/22 09:21 Intake & Output 11/23/22 11/24/22 11/24/22 18:59 06:59 18:59 Intake Total 700 2286.727 1178.207 Output Total 5 47 30 Balance 695 2239.727 1148.207 Weight 63.503 kg 65 kg Intake: IV 700 927 512 Art Line 27 12 Dextrose 5% in Water 1, 800 400 000 ml @ 100 mls/hr IV . Q11H [facility] with Sodium Bicarb (1 Meq/ml) 100 ml Rx#:[id number] Piperacillin-Tazobactam 3 100 100 .375 gm In Sodium Chloride 0.9% 100 ml @ 25 mls/hr IVPB Q8HR [facility] Rx# :[id number] Intake, IV Titration 1359.727 606.207 Amount Norepinephrine 32 mg In 12.477 Sodium Chloride 0.9% 218 ml @ 0.03 MCG/KG/MIN 0. 914 mls/hr IV .Q24H [facility] Rx#:[id number] Norepinephrine 4 mg In 1209.959 508 Sodium Chloride 0.9% 250 ml @ 0.05 MCG/KG/MIN 12. 097 mls/hr IV .Q21H [facility] Rx#:[id number] Vasopressin 20 unit In 25.627 Sodium Chloride 0.9% 50 ml @ 0.03 UNITS/MIN 4.59 mls/hr IV .Q11H7M [facility] Rx# :[id number] fentaNYL (PF). 1,000 mcg 5.133 In Sodium Chloride 0.9% 80 ml @ 0.5 MCG/KG/HR 3. 175 mls/hr IV .Q24H [facility] Rx#:[id number] propofoL 1,000 mg In 119.008 85.73 Empty Bag 1 bag @ 15 MCG/ KG/MIN 5.715 mls/hr IV . [id number] [facility] Rx#:[id number] Oral 60 Output: Urine 47 30 Estimated Blood Loss 5 Other: Voiding Method Indwelling Catheter Indwelling Catheter # Voids 0 ABP, PAP, CO, CI - Last Documented Arterial Blood Pressure 121/51 - Labs CBC & Chem 7: 11/24/22 06:17 11/24/22 06:17 Labs: Abnormal Lab Results - Last 24 Hours (Table) 11/23/22 11/23/22 11/23/22 Range/Units 21:19 21:19 21:19 WBC (3.8-10.6) k/uL RBC 3.32 L (4.30-5.90) m/uL Hgb 10.2 L (13.0-17.5) gm/dL Hct 31.6 L (39.0-53.0) % Neutrophils # (Manual) (1.3-7.7) k/uL Lymphocytes # (Manual) 0.47 L (1.0-4.8) k/uL Monocytes # (Manual) (0-1.0) k/uL Metamyelocytes # (Man) 0.47 H (0) k/uL Myelocytes # (Manual) (0) k/uL PT 13.5 H (10.0-12.5) sec INR 1.3 H (<1.2) ABG pH (7.35-7.45) ABG pCO2 (35-45) mmHg ABG pO2 (83-108) mmHg ABG HCO3 (21-25) mmol/L ABG Total CO2 (19-24) mmol/L ABG O2 Saturation (94-97) % Sodium (137-145) mmol/L Potassium 1.6 L* (3.5-5.1) mmol/L Chloride 127 H (98-107) mmol/L Carbon Dioxide 10 L (22-30) mmol/L Creatinine 0.62 L (0.66-1.25) mg/dL Glucose (74-99) mg/dL POC Glucose (mg/dL) (70-110) mg/dL Calcium 3.5 L* (8.4-10.2) mg/dL Magnesium 1.2 L (1.6-2.3) mg/dL Total Bilirubin <0.1 L (0.2-1.3) mg/dL AST (17-59) U/L Total Protein <2.0 L (6.3-8.2) g/dL Albumin <1.0 L (3.5-5.0) g/dL 11/23/22 11/23/22 11/23/22 Range/Units 21:21 21:52 21:52 WBC 11.1 H (3.8-10.6) k/uL RBC 3.68 L (4.30-5.90) m/uL Hgb 11.3 L (13.0-17.5) gm/dL Hct 34.3 L (39.0-53.0) % Neutrophils # (Manual) (1.3-7.7) k/uL Lymphocytes # (Manual) (1.0-4.8) k/uL Monocytes # (Manual) (0-1.0) k/uL Metamyelocytes # (Man) (0) k/uL Myelocytes # (Manual) (0) k/uL PT (10.0-12.5) sec INR (<1.2) ABG pH 7.10 L* (7.35-7.45) ABG pCO2 54 H (35-45) mmHg ABG pO2 164 H (83-108) mmHg ABG HCO3 17 L (21-25) mmol/L ABG Total CO2 18 L (19-24) mmol/L ABG O2 Saturation 98.0 H (94-97) % Sodium 133 L (137-145) mmol/L Potassium (3.5-5.1) mmol/L Chloride 110 H (98-107) mmol/L Carbon Dioxide 14 L (22-30) mmol/L Creatinine (0.66-1.25) mg/dL Glucose 144 H (74-99) mg/dL POC Glucose (mg/dL) (70-110) mg/dL Calcium 7.3 L (8.4-10.2) mg/dL Magnesium (1.6-2.3) mg/dL Total Bilirubin (0.2-1.3) mg/dL AST 63 H (17-59) U/L Total Protein 3.4 L (6.3-8.2) g/dL Albumin 1.6 L (3.5-5.0) g/dL 11/23/22 11/24/22 11/24/22 Range/Units 21:52 06:00 06:17 WBC 19.5 H (3.8-10.6) k/uL RBC 3.79 L (4.30-5.90) m/uL Hgb 11.6 L (13.0-17.5) gm/dL Hct 36.5 L (39.0-53.0) % Neutrophils # (Manual) 17.50 H (1.3-7.7) k/uL Lymphocytes # (Manual) 0.20 L (1.0-4.8) k/uL Monocytes # (Manual) 1.56 H (0-1.0) k/uL Metamyelocytes # (Man) 0.20 H (0) k/uL Myelocytes # (Manual) 0.20 H (0) k/uL PT 13.6 H (10.0-12.5) sec INR 1.3 H (<1.2) ABG pH 7.29 L (7.35-7.45) ABG pCO2 28 L (35-45) mmHg ABG pO2 301 H (83-108) mmHg ABG HCO3 14 L (21-25) mmol/L ABG Total CO2 14 L (19-24) mmol/L ABG O2 Saturation 99.3 H (94-97) % Sodium (137-145) mmol/L Potassium (3.5-5.1) mmol/L Chloride (98-107) mmol/L Carbon Dioxide (22-30) mmol/L Creatinine (0.66-1.25) mg/dL Glucose (74-99) mg/dL POC Glucose (mg/dL) (70-110) mg/dL Calcium (8.4-10.2) mg/dL Magnesium (1.6-2.3) mg/dL Total Bilirubin (0.2-1.3) mg/dL AST (17-59) U/L Total Protein (6.3-8.2) g/dL Albumin (3.5-5.0) g/dL 11/24/22 11/24/22 11/24/22 Range/Units 06:17 06:24 09:14 WBC (3.8-10.6) k/uL RBC (4.30-5.90) m/uL Hgb (13.0-17.5) gm/dL Hct (39.0-53.0) % Neutrophils # (Manual) (1.3-7.7) k/uL Lymphocytes # (Manual) (1.0-4.8) k/uL Monocytes # (Manual) (0-1.0) k/uL Metamyelocytes # (Man) (0) k/uL Myelocytes # (Manual) (0) k/uL PT (10.0-12.5) sec INR (<1.2) ABG pH 7.21 L (7.35-7.45) ABG pCO2 (35-45) mmHg ABG pO2 156 H (83-108) mmHg ABG HCO3 16 L (21-25) mmol/L ABG Total CO2 17 L (19-24) mmol/L ABG O2 Saturation 98.5 H (94-97) % Sodium 136 L (137-145) mmol/L Potassium (3.5-5.1) mmol/L Chloride 108 H (98-107) mmol/L Carbon Dioxide 12 L (22-30) mmol/L Creatinine 1.32 H (0.66-1.25) mg/dL Glucose 143 H (74-99) mg/dL POC Glucose (mg/dL) 202 H (70-110) mg/dL Calcium 7.7 L (8.4-10.2) mg/dL Magnesium (1.6-2.3) mg/dL Total Bilirubin (0.2-1.3) mg/dL AST (17-59) U/L Total Protein (6.3-8.2) g/dL Albumin (3.5-5.0) g/dL Microbiology - Last 24 Hours (Table) 11/22/22 05:32 Stool Culture - Preliminary Stool
--- NOTE | 2022-11-24 14:59 | PN ---
PROGRESS NOTE SUBJECTIVE: The patient is status post gangrenous gallbladder surgery per Dr. Urias's. After postop surgery, he coded on the floor, was sent to the ICU. Current everyday smoker. Family history of melanoma. Pulmonary saw the patient prior to surgery. He was sent to the ICU after the code cleared by pulmonology preop. Water Main Inspector preop cleared. Anyways, he came back after resuscitation 30 minutes. He is in ICU on the ventilator. He is on propofol, norepinephrine, vasopressin, and a sodium bicarbonate. White count 19.5, hemoglobin is 11.6. Blood gases, PO2 156, pCO2 40, pH 7.21, creatinine 1.32. His chest x-ray shows COPD, pneumonitis. OBJECTIVE: VITAL SIGNS: Temperature 97.5, pulse is 76, respiratory rate 20 to 22, blood pressure 71/47, to keep his blood pressure is on broad-spectrum antibiotics. Resting comfortably on the vent. ABDOMEN: Soft. NECK: Supple. CARDIOVASCULAR: S1, S2. LUNGS: Scattered rhonchi. NEUROLOGIC: Cranial nerves intact. LAB: White count 7.5, hemoglobin is , creatinine is 1.32. ABG in computer. He is status post gangrenous gallbladder, cholecystitis. Postop day 1, gangrenous cholecystitis. Surgeon Adonay is going to be very sick. He is on broad- spectrum antibiotics status post cardiopulmonary arrest, anion gap metabolic acidosis, acute kidney injury, severe hypotension secondary to sepsis, hypovolemic hyponatremia, metastatic melanoma. The patient is stable otherwise. Waiting for further pulmonary product analyst notes. MMODL / IJN: [id number] /
--- NOTE | 2022-11-24 15:53 | P.CRDCN ---
History of Present Illness Consult date: 11/24/22 History of present illness: History of Present Illness: The patient is a 77-year-old male who underwent cholecystectomy yesterday and later on had cardiopulmonary arrest requiring prolonged CPR and intubation. He is in the ICU and cardiac consultation was requested. He was admitted with abdominal discomfort, constipation his preop CAT scan showed distention of the c olon and the cecum. He has a history of melanoma with metastasis has been followed at [facility]. Reviewing the records during this admission there is no diagnosis of cardiac disease in the past, myocardial infarction, CHF or malignant arrhythmia. During the code he had mechanical electrical dissociation with no documented feet he or asystole. He is in sinus mechanism at this time on vasopressors with no urinary output. His EKG did not show any acute ST segment changes. No other cardiac history is available. He has a history of hypertension and hyperlipidemia. Medications: At home Lipitor 10 mg daily, Zestoretic 2012-1/2 mg daily, Pepcid, gabapentin, Compazine, Plavix 75 mg daily, hydrocodone Review of Systems: Could not be obtained, patient intubated Physical Examination: 77-year-old male, intubated and sedated ,Blood pressure 98/50, Heart rate 70 7 and Head: Normocephalic. Eyes: Sclerae nonicteric. Neck: Good carotid upstroke, no bruit, no jugular venous distention. Lungs: Clear to auscultation anteriorly. Heart: Regular rate and rhythm, S1-S2, no S3, no rub. Systolic ejection murmur. Abdomen: Soft hypoactive bowel sounds no organomegaly. Extremities: No edema, intact distal pulses. Labs: WBC 19.5, hemoglobin 11.6, BUN 20, creatinine 1.32, potassium 4.3. Troponin 6.6 EKG: Sinus mechanism with low voltage and evidence of anterior wall myocardial infa rction of unknown duration Impression: 1. Status post cardiac arrest, etiology unclear. Back in sinus mechanism post CPR 2. Status post cholecystectomy with gangrenous cholecystitis 3. Severe hypertension related to cardiac arrest 4. History of metastatic melanoma 5. Troponin elevation most likely represent type II myocardial infarction secondary to the cardiac arrest. Plan: 1. Obtain an echocardiogram with Doppler 2. Continue supportive care 3. The troponin elevation is most likely representing a type II myocardial infarction secondary to the cardiac arrest 4. Following functions, urinary output is low, probably ATN 5. Depending on his progress further recommendations will be made, prognosis is guarded. Thank you for this consult we will follow with you. Past Medical History Past Medical History: Cancer Additional Past Medical History / Comment(s): Melanoma shoulderw/ mets to spine History of Any Multi-Drug Resistant Organisms: None Reported Past Surgical History: Appendectomy, Hernia Repair Additional Past Surgical History / Comment(s): stent in left leg Past Psychological History: No Psychological Hx Reported Smoking Status: Current every day smoker Past Alcohol Use History: None Reported Past Drug Use History: None Reported Medications and Allergies Home Medications Medication Instructions Recorded Confirmed Type Atorvastatin [Lipitor] 10 mg PO HS 11/22/22 11/22/22 History Clopidogrel Bisulfate [Clopidogrel] 75 mg PO DAILY 11/22/22 11/22/22 History Famotidine 20 mg PO DAILY 11/22/22 11/22/22 History Gabapentin [Neurontin] 100 mg PO TID 11/22/22 11/22/22 History HYDROcodone/APAP 5-325MG [Yoder 1 tab PO TID PRN 11/22/22 11/22/22 History 5-325] Lisinopril-Hctz 20-12.5 mg 1 tab PO DAILY 11/22/22 11/22/22 History [Zestoretic 20-12.5] Morphine Sulfate Ir [MSIR] 15 mg PO Q6H PRN 11/22/22 11/22/22 History Prochlorperazine [Compazine] 10 mg PO Q6H PRN 11/22/22 11/22/22 History Allergies Allergy/AdvReac Type Severity Reaction Status Date / Time No Known Allergies Allergy Verified 11/22/22 09:31 Physical Exam Vitals: Vital Signs Temp Pulse Pulse Resp BP BP Pulse Ox 11/24/22 15:00 70 22 99 11/24/22 14:30 69 22 100 11/24/22 14:00 68 20 100 11/24/22 13:30 69 22 99 11/24/22 13:00 68 22 100 11/24/22 12:30 70 23 99 11/24/22 12:23 11/24/22 12:00 97.7 F 66 22 98 11/24/22 11:57 11/24/22 11:30 71 22 100 11/24/22 11:00 76 22 97 11/24/22 10:30 71 22 99 11/24/22 10:00 68 22 99 11/24/22 09:30 76 22 98 11/24/22 09:21 11/24/22 09:00 76 22 100 11/24/22 08:47 11/24/22 08:30 73 22 100 11/24/22 08:00 97.5 F L 75 22 100 11/24/22 07:30 75 26 H 118/68 100 11/24/22 07:00 76 22 118/68 100 11/24/22 06:30 74 27 H 118/68 100 11/24/22 06:00 73 24 100 11/24/22 05:30 74 28 H 100 11/24/22 05:00 72 22 100 11/24/22 04:30 77 24 100 11/24/22 04:00 98.0 F 81 22 100 11/24/22 03:30 75 25 H 100 11/24/22 03:04 11/24/22 03:00 80 28 H 100 11/24/22 02:00 79 22 98 11/24/22 01:30 86 22 98 11/24/22 01:00 82 22 98 11/24/22 00:30 92 22 98 11/24/22 00:00 98.0 F 92 22 98 11/23/22 23:30 81 26 H 72/43 84 L 11/23/22 23:27 11/23/22 23:00 81 22 100 11/23/22 22:30 79 22 11/23/22 22:00 97.6 F 90 22 73/45 99 11/23/22 21:37 11/23/22 21:30 105 H 16 11/23/22 21:02 109 H 18 11/23/22 20:47 11/23/22 20:46 11/23/22 19:46 58 L 16 139/84 100 11/23/22 19:31 64 16 139/82 99 11/23/22 19:16 109 H 20 142/79 100 11/23/22 19:01 123 H 18 173/81 100 11/23/22 18:46 97.7 F 102 H 14 162/73 96 11/23/22 17:51 97.8 F 73 14 109/58 100 11/23/22 16:13 97.8 F 76 16 97/59 100 FiO2 11/24/22 15:00 11/24/22 14:30 11/24/22 14:00 11/24/22 13:30 11/24/22 13:00 11/24/22 12:30 11/24/22 12:23 30 11/24/22 12:00 30 11/24/22 11:57 50 11/24/22 11:30 11/24/22 11:00 11/24/22 10:30 11/24/22 10:00 11/24/22 09:30 11/24/22 09:21 30 11/24/22 09:00 11/24/22 08:47 50 11/24/22 08:30 11/24/22 08:00 50 11/24/22 07:30 11/24/22 07:00 11/24/22 06:30 11/24/22 06:00 50 11/24/22 05:30 11/24/22 05:00 11/24/22 04:30 11/24/22 04:00 70 11/24/22 03:30 11/24/22 03:04 70 11/24/22 03:00 11/24/22 02:00 11/24/22 01:30 11/24/22 01:00 11/24/22 00:30 11/24/22 00:00 70 11/23/22 23:30 11/23/22 23:27 70 11/23/22 23:00 100 11/23/22 22:30 11/23/22 22:00 100 11/23/22 21:37 70 11/23/22 21:30 11/23/22 21:02 11/23/22 20:47 100 11/23/22 20:46 100 11/23/22 19:46 11/23/22 19:31 11/23/22 19:16 11/23/22 19:01 11/23/22 18:46 11/23/22 17:51 11/23/22 16:13 Intake and Output 11/24/22 11/24/22 11/24/22 06:59 14:59 22:59 Intake Total 2131.257 193.202 Output Total 37 75 Balance 2094.257 1863.202 Intake: IV 924 1102 Art Line 24 42 Dextrose 5% in Water 1, 800 900 000 ml @ 100 mls/hr IV . Q11H [facility] with Sodium Bicarb (1 Meq/ml) 100 ml Rx#:[id number] Invasive Line 6 60 Piperacillin-Tazobactam 3 100 100 .375 gm In Sodium Chloride 0.9% 100 ml @ 25 mls/hr IVPB Q8HR [facility] Rx# :[id number] Intake, IV Titration 1208.257 777.202 Amount Norepinephrine 32 mg In 59.855 Sodium Chloride 0.9% 218 ml @ 0.03 MCG/KG/MIN 0. 914 mls/hr IV .Q24H [facility] Rx#:[id number] Norepinephrine 4 mg In 1062.776 508 Sodium Chloride 0.9% 250 ml @ 0.05 MCG/KG/MIN 12. 097 mls/hr IV .Q21H [facility] Rx#:[id number] Vasopressin 20 unit In 25.627 Sodium Chloride 0.9% 50 ml @ 0.03 UNITS/MIN 4.59 mls/hr IV .Q11H7M [facility] Rx# :[id number] fentaNYL (PF). 1,000 mcg 5.133 56.303 In Sodium Chloride 0.9% 80 ml @ 0.5 MCG/KG/HR 3. 175 mls/hr IV .Q24H [facility] Rx#:[id number] propofoL 1,000 mg In 114.721 153.044 Empty Bag 1 bag @ 15 MCG/ KG/MIN 5.715 mls/hr IV . [id number] [facility] Rx#:[id number] Oral 60 Output: Urine 37 75 Other: Voiding Method Indwelling Catheter Indwelling Catheter Weight 65 kg ABP, PAP, CO, CI - Last 8 Hours Arterial Blood Pressure 98/47 Arterial Blood Pressure 100/49 Arterial Blood Pressure 101/49 Arterial Blood Pressure 104/50 Arterial Blood Pressure 99/48 Arterial Blood Pressure 98/48 Arterial Blood Pressure 115/51 Arterial Blood Pressure 113/53 Arterial Blood Pressure 128/59 Arterial Blood Pressure 129/56 Arterial Blood Pressure 121/51 Arterial Blood Pressure 124/53 Arterial Blood Pressure 118/52 Arterial Blood Pressure 115/55 Arterial Blood Pressure 116/54 Results 11/24/22 06:17 11/24/22 06:17 Cardiac Enzymes 11/23/22 11/23/22 11/24/22 Range/Units 21:19 21:52 10:00 AST 31 63 H (17-59) U/L Troponin I 6.650 H* (0.000-0.034) ng/mL Coagulation 11/23/22 11/23/22 Range/Units 21:19 21:52 PT 13.5 H 13.6 H (10.0-12.5) sec APTT 27.0 22.9 (22.0-30.0) sec CBC 11/23/22 11/23/22 11/24/22 Range/Units 21:19 21:52 06:17 WBC 6.7 11.1 H 19.5 H (3.8-10.6) k/uL RBC 3.32 L 3.68 L 3.79 L (4.30-5.90) m/uL Hgb 10.2 L 11.3 L 11.6 L (13.0-17.5) gm/dL Hct 31.6 L 34.3 L 36.5 L (39.0-53.0) % Plt Count 335 418 359 (150-450) k/uL Comprehensive Metabolic Panel 11/23/22 11/23/22 11/24/22 Range/Units 21:19 21:52 06:17 Sodium 141 133 L 136 L (137-145) mmol/L Potassium 1.6 L* 3.5 4.3 (3.5-5.1) mmol/L Chloride 127 H 110 H 108 H (98-107) mmol/L Carbon Dioxide 10 L 14 L 12 L (22-30) mmol/L BUN 10 18 20 (9-20) mg/dL Creatinine 0.62 L 1.20 1.32 H (0.66-1.25) mg/dL Glucose 79 144 H 143 H (74-99) mg/dL Calcium 3.5 L* 7.3 L 7.7 L (8.4-10.2) mg/dL AST 31 63 H (17-59) U/L ALT 19 38 (4-49) U/L Alkaline Phosphatase 48 103 (38-126) U/L Total Protein <2.0 L 3.4 L (6.3-8.2) g/dL Albumin <1.0 L 1.6 L (3.5-5.0) g/dL Current Medications Generic Name Dose Route Start Last Admin Trade Name Freq PRN Reason Stop Dose Admin Atorvastatin Calcium 10 mg 11/22/22 21:00 11/24/22 00:26 Atorvastatin 10 Mg Tab PO Not Given HS [facility] Chlorhexidine Gluconate 15 ml 11/24/22 09:00 11/24/22 09:06 Chlorhexidine Gluconate 15 Ml Cup MUCOUS MEM 15 ml BID [facility] Administration Dextrose/Water 25 ml 11/24/22 12:07 Dextrose 50% Syringe 50 Ml IVP PER PROTOCOL PRN Hypoglycemia Protocol Dextrose/Water 50 ml 11/24/22 12:07 Dextrose 50% Syringe 50 Ml IVP PER PROTOCOL PRN Hypoglycemia Protocol Famotidine 20 mg 11/23/22 09:00 11/24/22 09:06 Famotidine 20 Mg Tab PO 20 mg DAILY [facility] Administration Gabapentin 100 mg 11/22/22 16:00 11/24/22 15:39 Gabapentin 100 Mg Cap PO 100 mg TID [facility] Administration Lisinopril/HCTZ 1 each 11/23/22 09:00 11/24/22 09:38 Lisinopril-Hctz 20-12.5 Mg 1 Each Tab PO Not Given DAILY [facility] Hydromorphone HCl 1 mg 11/22/22 12:26 Hydromorphone 1 Mg/Ml 1 Ml Syringe IVP Q3HR PRN Pain Hydromorphone HCl 1 mg 11/23/22 18:39 Hydromorphone 1 Mg/Ml 1 Ml Syringe IVP Q3HR PRN Pain Piperacillin Sod/Tazobactam 100 mls @ 25 mls/hr 11/23/22 08:30 11/24/22 15:38 Sod 3.375 gm/ Sodium Chloride IVPB 25 mls/hr Q8HR [facility] Administration Protocol Propofol 1,000 mg/ IV Solution 100 mls @ 5.715 mls/hr 11/23/22 20:45 11/24/22 13:16 IV 50 mcg/kg/min .[id number] [facility] 19.051 mls/hr Administration Protocol 15 MCG/KG/MIN Sodium Bicarbonate 100 ml/ 1,100 mls @ 100 mls/hr 11/23/22 21:45 11/24/22 09:39 Dextrose/Water IV 100 mls/hr .Q11H [facility] Administration Vasopressin 20 unit/ Sodium 51 mls @ 4.59 mls/hr 11/24/22 00:30 11/24/22 06:15 Chloride IV 0.03 units/min .Q11H7M [facility] 4.59 mls/hr Administration Protocol 0.03 UNITS/MIN Fentanyl Citrate 1,000 mcg/ 100 mls @ 3.175 mls/hr 11/24/22 03:00 11/24/22 14:08 Sodium Chloride IV 0.5 mcg/kg/hr .Q24H [facility] 3.175 mls/hr Titration Protocol 0.5 MCG/KG/HR Norepinephrine Bitartrate 32 250 mls @ 0.914 mls/hr 11/24/22 09:15 11/24/22 13:24 mg/ Sodium Chloride IV 0.4 mcg/kg/min .Q24H [facility] 12.188 mls/hr Titration Protocol 0.03 MCG/KG/MIN Insulin Aspart 0 unit 11/24/22 12:30 11/24/22 12:45 Insulin Aspart (Novolog) 100 Unit/Ml Vial SQ 4 unit Q6H [facility] Administration Protocol Miscellaneous Information 1 each 11/23/22 21:24 Potassium Replacement Protocol 1 Each Misc MISCELLANE DAILY PRN Per Protocol Miscellaneous Information 1 each 11/23/22 21:24 Magnesium Replacement Protocol 1 Each Misc MISCELLANE DAILY PRN Per Protocol Protocol Naloxone HCl 0.2 mg 11/22/22 03:45 Naloxone 0.4 Mg/Ml 1 Ml Vial IV Q2M PRN Opioid Reversal Ondansetron HCl 4 mg 11/22/22 03:45 Ondansetron 4 Mg/2 Ml Vial IVP Q8HR PRN Nausea And Vomiting Intake and Output 11/24/22 11/24/22 11/24/22 06:59 14:59 22:59 Intake Total 2132.257 1939.202 Output Total 37 75 Balance 2095.257 1864.202 Intake: IV 924 1102 Art Line 24 42 Dextrose 5% in Water 1, 800 900 000 ml @ 100 mls/hr IV . Q11H [facility] with Sodium Bicarb (1 Meq/ml) 100 ml Rx#:[id number] Invasive Line 6 60 Piperacillin-Tazobactam 3 100 100 .375 gm In Sodium Chloride 0.9% 100 ml @ 25 mls/hr IVPB Q8HR [facility] Rx# :[id number] Intake, IV Titration 1208.257 777.202 Amount Norepinephrine 32 mg In 59.855 Sodium Chloride 0.9% 218 ml @ 0.03 MCG/KG/MIN 0. 914 mls/hr IV .Q24H [facility] Rx#:[id number] Norepinephrine 4 mg In 1062.776 508 Sodium Chloride 0.9% 250 ml @ 0.05 MCG/KG/MIN 12. 097 mls/hr IV .Q21H [facility] Rx#:[id number] Vasopressin 20 unit In 25.627 Sodium Chloride 0.9% 50 ml @ 0.03 UNITS/MIN 4.59 mls/hr IV .Q11H7M [facility] Rx# :[id number] fentaNYL (PF). 1,000 mcg 5.133 56.303 In Sodium Chloride 0.9% 80 ml @ 0.5 MCG/KG/HR 3. 175 mls/hr IV .Q24H [facility] Rx#:[id number] propofoL 1,000 mg In 114.721 153.044 Empty Bag 1 bag @ 15 MCG/ KG/MIN 5.715 mls/hr IV . [id number] [facility] Rx#:[id number] Oral 60 Output: Urine 37 75 Other: Voiding Method Indwelling Catheter Indwelling Catheter Weight 65 kg 11/24/22 06:17 11/24/22 06:17
[2022-11-24 18:00] LABS: Glucose,Whole Blood 183 mg/dL (70-110)
--- NOTE | 2022-11-24 18:21 | CA ---
Transthoracic Echo Report Name: Rickey Riojas Age: 77 Gender: M : 1945 Exam Date: 11/24/2022 13:47 Exam Location: [facility] Ht (in): 72 Wt (lb): 143 Ordering Physician: Michele Macdonald MD Attending/Referring Phys: Business Intelligence Consultant Gilberto Hammond Procedure CPT: Indications: MN Cardiac Hx: Technical Quality: Technically difficult study Contrast 1: Total Dose (mL): Contrast 2: Total Dose (mL): MEASUREMENTS (Male / Female) Normal Values 2D ECHO LV Diastolic Diameter PLAX 4.1 cm 4.2 - 5.9 / 3.9 - 5.3 cm LV Systolic Diameter PLAX 3.6 cm IVS Diastolic Thickness 0.8 cm 0.6 - 1.0 / 0.6 - 0.9 cm LVPW Diastolic Thickness 0.8 cm 0.6 - 1.0 / 0.6 - 0.9 cm LV Relative Wall Thickness 0.4 RV Internal Dim ED PLAX 2.6 cm LVOT Diameter 2.0 cm Aortic Root Diameter 3.0 cm LA Systolic Diameter LX 1.9 cm 3.0 - 4.0 / 2.7 - 3.8 cm LV Diastolic Volume MOD BP 48.7 cm??? 67 - 155 / 56 - 104 cm??? LV Systolic Volume MOD BP 35.2 cm??? 22 - 58 / 19 - 49 cm??? LV Ejection Fraction MOD BP 27.8 % >= 55 % LV Cardiac Index MOD BP 509.8 cm???/min???m??? LV Diastolic Volume MOD 4C 43.1 cm??? LV Systolic Volume MOD 4C 29.6 cm??? LV Ejection Fraction MOD 4C 31.4 % LV Cardiac Index MOD 4C 511.1 cm???/min???m??? LV Diastolic Length 4C 5.7 cm LV Systolic Length 4C 5.6 cm LV Diastolic Volume MOD 2C 52.9 cm??? LV Systolic Volume MOD 2C 41.4 cm??? LV Ejection Fraction MOD 2C 21.8 % LV Cardiac Index MOD 2C 434.3 cm???/min???m??? LV Diastolic Length 2C 5.9 cm LV Systolic Length 2C 5.7 cm DOPPLER AV Peak Velocity 74.7 cm/s AV Peak Gradient 2.2 mmHg LVOT Peak Velocity 50.7 cm/s LVOT Peak Gradient 1.0 mmHg LVOT Velocity Time Integral 11.4 cm LVOT Stroke Volume 35.6 cm??? LVOT Stroke Volume Index 19.3 ml/m??? LVOT Cardiac Index 1341.8 cm???/min???m??? AV Area Cont Eq pk 2.1 cm??? MV Peak Velocity 68.4 cm/s MV Peak Gradient 1.9 mmHg MV Mean Velocity 33.0 cm/s MV Mean Gradient 0.5 mmHg MV Velocity Time Integral 25.4 cm Mitral E Point Velocity 72.9 cm/s Mitral A Point Velocity 76.1 cm/s Mitral E to A Ratio 1.0 MV Deceleration Time 168.1 ms MV E' Velocity 6.7 cm/s Mitral E to MV E' Ratio 10.8 TR Peak Velocity 248.3 cm/s TR Peak Gradient 24.7 mmHg Right Ventricular Systolic Press 29.7 mmHg PV Peak Velocity 79.1 cm/s PV Peak Gradient 2.5 mmHg FINDINGS Left Ventricle Severely decreased left ventricular ejection fraction. Left ventricular ejection fraction is estimated at 15-20 %. Normal LV size and wall thickness. Right Ventricle Normal right ventricular size. RVSP= 30mmHg. Right Atrium Normal right atrial size. Left Atrium Normal left atrial size. Mitral Valve Moderately calcified Mitral valve.No mitral regurgitation. MV area by VTI= 1.4cm2 Aortic Valve Aortic valve not well visualized. No aortic valve stenosis or regurgitation. Tricuspid Valve Structurally normal tricuspid valve. Mild to mderate TR. Pulmonic Valve Pulmonic valve not well visualized. No pulmonic regurgitation. Pericardium Normal pericardium. Aorta Normal size aortic root. CONCLUSIONS Technically difficult and limited views. Severe LV dysfunction with an akinetic anterior septal wall Previewed by: Dr. Tyrese Israel MD (Electronically Signed) Final Date: 24 November 2022 18:20
[2022-11-24 23:22] LABS: Glucose,Whole Blood 180 mg/dL (70-110)
--- NOTE | 2022-11-25 04:05 | PN ---
PROGRESS NOTE SUBJECTIVE: A 77-year-old male status post cholecystectomy, status post cardiovascular arrest intubation, is in ICU. Cardiac consultation is requested. History of melanoma, metastases. is on vasopressors. No urinary output. Medicines reviewed. Status post cardiac arrest, etiology clear. He is back to sinus rhythm. ASSESSMENT: 1. Status post cholecystectomy cholecystitis. 2. Severe hypertension related to cardiac arrest. 3. History of metastatic melanoma. 4. Troponin elevation, secondary to type 2 myocardial infarction secondary to cardiac arrest. Echo has been ordered. 5. , his urinary output is low, presently 8 cm. PROGNOSIS: Guarded. MMODL / IJN: [id number] /
[2022-11-25] MEDS: VASOPRESSIN 20 UNIT in SODIUM CHLORIDE 0.9% 50 ML IV SCH ×2 (04:14→18:43)
[2022-11-25 05:21] LABS: African American GFR (CKD) 32 (>60 ml/min/1.73 sqM); Anion Gap 10 mmol/L; Blood Urea Nitrogen 27 mg/dL (9-20); Calcium 7.3 mg/dL (8.4-10.2); Carbon Dioxide 18 mmol/L (22-30); Chloride 102 mmol/L (98-107); Glucose 173 mg/dL (74-99); Non-African American GFR(CKD) 27 (>60 ml/min/1.73 sqM); Potassium 3.3 mmol/L (3.5-5.1); Sodium 130 mmol/L (137-145)
[2022-11-25 05:30] LABS: Basophils % (A) 0 %; Eosinophils % (A) 0 %; HCT 35.5 % (39.0-53.0); HGB 11.8 gm/dL (13.0-17.5); Lymphocytes # (A) 0.6 k/uL (1.0-4.8); Lymphocytes % (A) 5 %; MCH 30.4 pg (25.0-35.0); MCHC 33.2 g/dL (31.0-37.0); MCV 91.5 fL (80.0-100.0); Mean Platelet Volume 7.6; Monocytes # (A) 1.3 k/uL (0-1.0); Monocytes % (A) 11 %; Neutrophils # (A) 9.1 k/uL (1.3-7.7); Neutrophils % (A) 81 %; Platelet Count 243 k/uL (150-450); RBC 3.88 m/uL (4.30-5.90); RDW 14.9 % (11.5-15.5); WBC 11.3 k/uL (3.8-10.6)
[2022-11-25 06:08] LABS: Glucose,Whole Blood 172 mg/dL (70-110)
[2022-11-25] MEDS: INSULIN ASPART (NovoLOG) 100 UNIT/ML VIAL SQ SCH ×3 (06:17→17:55)
[2022-11-25 06:19] LABS: ABG PCO2 42 mmHg (35-45); ABG PH 7.33 (7.35-7.45); Allen Test Performed? No
[2022-11-25 06:20] LABS: ABG HCO3 22 mmol/L (21-25); ABG PO2 94 mmHg (83-108); ABG TCO2 23 mmol/L (19-24)
[2022-11-25] MEDS: FAMOTIDINE 20 MG TAB PO SCH (08:23)
[2022-11-25] MEDS: GABAPENTIN 100 MG CAP PO SCH ×3 (08:23→21:47)
[2022-11-25] MEDS: LISINOPRIL-HCTZ 20-12.5 MG 1 EACH TAB PO SCH (08:23)
[2022-11-25] MEDS: CHLORHEXIDINE GLUCONATE 15 ML CUP MUCOUS MEM SCH ×2 (08:37→21:47)
[2022-11-25] MEDS: PIPERACILLIN-TAZOBACTAM 3.375 GM in SODIUM CHLORIDE 0.9% 100 ML IVPB SCH ×2 (08:37→16:25)
[2022-11-25] MEDS: NOREPINEPHRINE 32 MG in SODIUM CHLORIDE 0.9% 218 ML IV SCH ×2 (09:51→21:51)
[2022-11-25 11:14] VITALS: BMI 21.2
--- NOTE | 2022-11-25 11:19 | P.PN ---
Subjective Progress Note Date: 11/25/22 Principal diagnosis: Right upper quadrant abdominal pain. Pulmonary consult dated 11/22/2022. This is a 77-year-old male with a history of melanoma, who is followed at the [facility], who presents to the emergency department, on November 21, complaining of nausea, vomiting, diarrhea, and dehydration. The patient has not been feeling well for about a week or so. Recently, the patient has been having issues with constipation, related to narcotics. Subsequent to that, the patient started taking medications to relieve the constipation, and he developed significant diarrhea and dehydration. The patient has been complaining of abdominal pain, diffusely, with some localization in the right upper quadrant. Some of this pain is epigastric and even left-sided. His past medical history is primarily positive for the melanoma, with metastasis, and he is a current every day smoker. I was called by the surgeon, because of the patient's hyponatremia, and, because the patient will eventually need a cholecystectomy. Current laboratory data includes a white count 6.2, hemoglobin 12.3, hematocrit 35.9, and a platelet count was normal. Sodium is 121, potassium 4.1, chlorides 93, CO2 17, anion gap 11, BUN 23, and creatinine 1.04. Calcium is 7.3. Albumin is 2.3. Urine is negative. Testing for influenza, RSV, and coronavirus were all negative. Computed tomography scan of the abdomen shows a low-grade colonic obstruction. Repeat computed tomography scan of the abdomen and pelvis shows ongoing distention of the colon but the cecum dilated up to 8.1 cm. In addition, there are lesions throughout the osseous structures of the abdomen and pelvis, worrisome for osseous metastatic disease, likely from his melanoma. The patient's HIDA scan suggested cholecystitis. The patient is scheduled for tentative laparoscopic cholecystectomy tomorrow. Progress note dated 11/23/2022. 77-year-old male with history of metastatic melanoma, who came to the hospital with complaints of pain in the abdomen. He was found to have cholelithiasis/cholecystitis. The patient is scheduled for a laparoscopic cholecystectomy today. He was hyponatremic initially, but today sodium, with fluid resuscitation, is 130. Currently he is on room air. I did notify the surgeon, that I thought the patient was stable for surgery. White count 5.2, hemoglobin 12.3, hematocrit 37.5, and platelet count normal. Sodium up to 03/07/2020, potassium 3.8, chlorides 103, CO2 12, anion gap 15, BUN 17, creatinine 0.93. Urine is negative. Progress note dated 11/24/2022. 77-year-old male status post laparoscopic cholecystectomy for gangrenous gallbladder. The patient apparently was transferred, from recovery area to the general medical floor, and, apparently developed a cardiopulmonary arrest, requiring a long resuscitation time of about 30 minutes. Currently, the patient is in the intensive care unit, room 257, on the ventilator. He is on the volume assist control, rate 22, tidal volume 400, FiO2 50%, and PEEP of 8. Blood gases, on 70%, show pO2 301, pCO2 28, and pH is 7.29. The patient is on propofol at 50 mcg/kg/m, norepinephrine at 40 mcg/m, vasopressin at 0.03 units per minute, fentanyl 1 mcg/kg/h, and a sodium bicarbonate ampules of sodium bicarbonate and D5W 100 mL an hour. Current labs include a white count 19.5, hemoglobin 11.6, hematocrit 36.5, with a normal platelet count. Repeat blood gases show pO2 156, pCO2 40, pH is 7.21. Sodium 136, potassium 4.3, chlorides 108, CO2 12, BUN 20, creatinine 1.32. The patient's troponin was 6.650. The patient's chest x-rays consistent with COPD, with some interstitial pneumonitis, or mild venous congestion. Progress note dated 11/25/2022. 77-year-old male status post laparoscopic cholecystectomy for gangrenous gallbladder. The patient was apparently transferred from recovery area to the general medical floor, and developed a cardiopulmonary arrest, requiring resuscitation of about 30 minutes. There was eventual return of spontaneous circulation. The patient is now seen in room 257, intensive care unit. Ventilator settings include the volume assist control, rate 22, tidal volume 400, FiO2 30%, and PEEP of 8. Blood gases show pO2 of 94, pCO2 42, and a pH is 7.32. The patient's currently on fentanyl at 0.5 mcg/kg/h, followed 45 mcg/kg/m, vasopressin at 0.03 units per minute, norepinephrine at 40 mcg/m, and sodium bicarbonate drip, with 2 ampules of sodium bicarbonate and D5W at 100 mL an hour. The patient is getting Zosyn. Labs include a white count 11.3, hemoglobin 11.8, hematocrit 35.5, and a normal platelet count. Sodium is 130, potassium 3.3, chlorides 102, CO2 18, anion gap 10, BUN 27, and creatinine 2.25. Cortisol level was adequate at 34. Chest x-ray shows a properly positioned endotracheal tube. Some basilar atelectasis or infiltrate is noted. Objective - Vital Signs Vital signs: Vital Signs Temp 98.7 F 11/25/22 08:00 Pulse 78 11/25/22 10:00 Resp 22 11/25/22 10:00 BP 100/61 11/25/22 06:00 Pulse Ox 98 11/25/22 10:00 FiO2 30 11/25/22 09:27 Intake & Output 11/24/22 11/25/22 11/25/22 18:59 06:59 18:59 Intake Total 2591.462 1779.298 757.667 Output Total 107 106 45 Balance 2484.462 1673.298 712.667 Weight 70.8 kg 70.8 kg Intake: IV 1556 1416 438 0.9 NS KVO 60 20 Art Line 66 66 18 Dextrose 5% in Water 1, 1300 1100 300 000 ml @ 100 mls/hr IV . Q11H [facility] with Sodium Bicarb (1 Meq/ml) 100 ml Rx#:[id number] Invasive Line 6 90 90 Piperacillin-Tazobactam 3 100 100 100 .375 gm In Sodium Chloride 0.9% 100 ml @ 25 mls/hr IVPB Q8HR [facility] Rx# :[id number] Intake, IV Titration 975.462 363.298 319.667 Amount Norepinephrine 32 mg In 104.240 122.178 219.667 Sodium Chloride 0.9% 218 ml @ 0.03 MCG/KG/MIN 0. 914 mls/hr IV .Q24H [facility] Rx#:[id number] Norepinephrine 4 mg In 508 Sodium Chloride 0.9% 250 ml @ 0.05 MCG/KG/MIN 12. 097 mls/hr IV .Q21H [facility] Rx#:[id number] Vasopressin 20 unit In 51 46.818 Sodium Chloride 0.9% 50 ml @ 0.03 UNITS/MIN 4.59 mls/hr IV .Q11H7M [facility] Rx# :[id number] fentaNYL (PF). 1,000 mcg 69.638 In Sodium Chloride 0.9% 80 ml @ 0.5 MCG/KG/HR 3. 175 mls/hr IV .Q24H [facility] Rx#:[id number] propofoL 1,000 mg In 242.584 194.302 100.000 Empty Bag 1 bag @ 15 MCG/ KG/MIN 5.715 mls/hr IV . [id number] [facility] Rx#:[id number] Oral 60 Output: Urine 107 106 45 Other: Voiding Method Indwelling Catheter Indwelling Catheter Indwelling Catheter ABP, PAP, CO, CI - Last Documented Arterial Blood Pressure 102/51 - Exam No acute distress, sedated, with an orally placed endotracheal tube and NG tube. HEENT examination is grossly unremarkable. Neck supple. Full range of motion. No adenopathy thyromegaly or neck vein distention. Cardiovascular examination reveals regular rhythm rate. S1-S2 normal. No S3 or S4. No discernible murmur noted. Heart rate 78 bpm. Heart sounds are distant. Lungs reveal scattered rhonchi. Minimal crackles. Breath sounds equal bilaterally. Saturations is 98%. Abdomen soft, without bowel sounds. Incisions are clean and dry. Extremities are intact. No cyanosis clubbing or edema. Skin is without rash or lesion. Neurologic examination cannot be evaluated at this time. - Labs CBC & Chem 7: 11/25/22 04:51 11/25/22 04:51 Labs: Abnormal Lab Results - Last 24 Hours (Table) 11/24/22 11/24/22 11/24/22 Range/Units 12:03 17:59 23:20 WBC (3.8-10.6) k/uL RBC (4.30-5.90) m/uL Hgb (13.0-17.5) gm/dL Hct (39.0-53.0) % Neutrophils # (1.3-7.7) k/uL Lymphocytes # (1.0-4.8) k/uL Monocytes # (0-1.0) k/uL ABG pH (7.35-7.45) Sodium (137-145) mmol/L Potassium (3.5-5.1) mmol/L Carbon Dioxide (22-30) mmol/L BUN (9-20) mg/dL Creatinine (0.66-1.25) mg/dL Glucose (74-99) mg/dL POC Glucose (mg/dL) 218 H 183 H 180 H (70-110) mg/dL Calcium (8.4-10.2) mg/dL TSH (0.465-4.680) mIU/L 11/25/22 11/25/22 11/25/22 Range/Units 04:51 04:51 04:51 WBC 11.3 H (3.8-10.6) k/uL RBC 3.88 L (4.30-5.90) m/uL Hgb 11.8 L (13.0-17.5) gm/dL Hct 35.5 L (39.0-53.0) % Neutrophils # 9.1 H (1.3-7.7) k/uL Lymphocytes # 0.6 L (1.0-4.8) k/uL Monocytes # 1.3 H (0-1.0) k/uL ABG pH (7.35-7.45) Sodium 130 L (137-145) mmol/L Potassium 3.3 L (3.5-5.1) mmol/L Carbon Dioxide 18 L (22-30) mmol/L BUN 27 H (9-20) mg/dL Creatinine 2.25 H (0.66-1.25) mg/dL Glucose 173 H (74-99) mg/dL POC Glucose (mg/dL) (70-110) mg/dL Calcium 7.3 L (8.4-10.2) mg/dL TSH 0.241 L (0.465-4.680) mIU/L 11/25/22 11/25/22 Range/Units 05:50 06:07 WBC (3.8-10.6) k/uL RBC (4.30-5.90) m/uL Hgb (13.0-17.5) gm/dL Hct (39.0-53.0) % Neutrophils # (1.3-7.7) k/uL Lymphocytes # (1.0-4.8) k/uL Monocytes # (0-1.0) k/uL ABG pH 7.33 L (7.35-7.45) Sodium (137-145) mmol/L Potassium (3.5-5.1) mmol/L Carbon Dioxide (22-30) mmol/L BUN (9-20) mg/dL Creatinine (0.66-1.25) mg/dL Glucose (74-99) mg/dL POC Glucose (mg/dL) 172 H (70-110) mg/dL Calcium (8.4-10.2) mg/dL TSH (0.465-4.680) mIU/L Microbiology - Last 24 Hours (Table) 11/22/22 05:32 Stool Culture - Final Stool Assessment and Plan Assessment: Acute cholecystitis, S/P laparoscopic cholecystectomy 11/23/2022, postop day #2. Gangrenous cholecystitis. Status post cardiopulmonary arrest, with prolonged resuscitation time and eventual return of spontaneous circulation, 11/23/2022. Rule out myocardial ischemia. Anion gap metabolic acidosis. Acute kidney injury, likely secondary to ATN. Severe hypotension, possibly related to myocardial injury, and/or sepsis. Hypovolemic hyponatremia. This in part related to the patient's recent nausea, vomiting, and diarrhea. History of metastatic melanoma. Plan: Plan dated 11/22/2022. The patient is examined, and observation, room 153. Is currently on room air. Is not experiencing any shortness of breath or difficulty with breathing. The patient has pain in the abdomen, diffusely, some on the right upper quadrant, most of the pain seems to be epigastric and left upper quadrant. It may be referred. The patient should get significant fluid resuscitation with saline, at 150 mL an hour. A morning electrolyte profile should be done. Additional recommendations and suggestions are forthcoming. The patient should be nothing by mouth after midnight. Additional recommendations and suggestions are forthcoming. He is stable hemodynamically, and from the respiratory standpoint. Plan dated 11/24/2019. The patient's sodium is up to 130. Initially, the sodium was 121. I increased the patient saline up to 150 mL an hour. I repeated a sodium last night at 9:00, and then he had another one today, this morning. In my opinion, the patient is appropriate for surgery today. The patient's on room air. Labs, x- rays, and medications are reviewed. We will continue to follow make recommendations where appropriate. Plan dated 11/24/2022. The exact events are unclear, but the patient did sustain a significant cardiopulmonary arrest, with prolonged cardiopulmonary resuscitation, of 30 minutes, and eventual return of spontaneous circulation. The patient's in the intensive care unit, on the mechanical ventilator. He has an anion gap metabolic acidosis, and may have sustained a myocardial infarction. He is currently on propofol, norepinephrine, vasopressin, fentanyl, and a sodium bicarbonate drip. Labs, x-rays, and medications are reviewed. The patient's prognosis is poor, given his age, and his prolonged resuscitation. His troponin, was elevated. Additional recommendations and suggestions are forthcoming. Cardiology and nephrology should see the patient. Plan dated 11/25/2022. The patient is seen today in room 257. Unfortunately, the patient remains on a number drips including propofol, fentanyl, vasopressin, and norepinephrine. The patient is also on a sodium bicarbonate drip. Labs, x-rays, and medications are reviewed. The patient will be started on tube feedings. We'll make sure the patient gets a cortisol level and a TSH done. In addition, the patient will be cultured, including blood, urine, and sputum. The patient overall prognosis is very guarded, given his long resuscitation time 30 minutes. We will continue to follow and make recommendations were appropriate. Urine output remains at about 15-20 mL per hour. Dilaudid just discontinued. Also, lisinopril/hydrochlorothiazide is discontinued. Time with Patient: Greater than 30
[2022-11-25 11:25] LABS: T4, Free (Free Thyroxine) 0.86 ng/dL (0.78-2.19)
[2022-11-25] MEDS ORDERED: POTASSIUM BICARBONATE/CIT AC 20 MEQ TABLET.EFF PO ONE (11:30)
--- NOTE | 2022-11-25 11:30 | XR ---
EXAM: XR chest 1V portable CLINICAL INDICATION:Male, 77 years old with history of Tube placement; [facility] COMPARISON: 11/24/2022 and before TECHNIQUE: Chest single view. FINDINGS: Lines/tubes/devices: ET tube tip below the clavicles about 6.4 cm above the marsha. NG tube extends i nto the left abdomen with its tip beyond the field of view but the sidehole is seen over the proximal gastric body. Left subclavian central venous line unchanged with tip over the mid SVC. EKG leads ove rlie the chest. Cardiomediastinum: Stable. Heart is not grossly enlarged. Vasculature: No increased pulmonary vasculature. Lungs/pleura: Hyperinflation with interstitial coarsening again seen, likely COPD changes. Similar hazy alveolar an d interstitial opacities in the lung bases, may represent chronic changes, edema, and/or infection. N o new or worsening consolidation, sizable effusion, or pneumothorax is demonstrated. Bones/soft tissues: Osseous structures appear grossly unchanged. Chronic mild right rib deformity again seen. Regional so ft tissues appear unremarkable. IMPRESSION: 1. Lines and tubes in place, as above. 2. Stable pulmonary status.
[2022-11-25 11:47] LABS: Glucose,Whole Blood 158 mg/dL (70-110)
--- NOTE | 2022-11-25 11:54 | P.NPCON ---
History of Present Illness - Reason for Consult acute renal failure - History of Present Illness Patient is a 77-year-old male with history of metastatic melanoma who was admitted to the hospital with abdominal pain. Patient is noted to have cholelithiasis and cholecystitis. He is status post laparoscopic cholecystectomy on 11/24/2022. On his way to the medical floor from recovery patient developed cardiac arrest. Down time was about 30 minutes. Subsequently patient has been intubated and is currently in the ICU. He has been very hypotensive and is currently maintained on large doses of levo fed and vasopressin. Patient is also on a bicarb drip. Urine output has been at 10-15 mL per hour. No bleeding noted from surgical site. Sodium was low at 121 on initial admission and improved with saline administration to 130 and it was 141 on 11/23/2022. 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 History of Any Multi-Drug Resistant Organisms: None Reported Past Surgical History: Appendectomy, Hernia Repair Additional Past Surgical History / Comment(s): stent in left leg Past Psychological History: No Psychological Hx Reported Smoking Status: Current every day smoker Past Alcohol Use History: None Reported Past Drug Use History: None Reported Medications and Allergies Home Medications Medication Instructions Recorded Confirmed Type Atorvastatin [Lipitor] 10 mg PO HS 11/22/22 11/22/22 History Clopidogrel Bisulfate [Clopidogrel] 75 mg PO DAILY 11/22/22 11/22/22 History Famotidine 20 mg PO DAILY 11/22/22 11/22/22 History Gabapentin [Neurontin] 100 mg PO TID 11/22/22 11/22/22 History HYDROcodone/APAP 5-325MG [[place] 1 tab PO TID PRN 11/22/22 11/22/22 History 5-325] Lisinopril-Hctz 20-12.5 mg 1 tab PO DAILY 11/22/22 11/22/22 History [Zestoretic 20-12.5] Morphine Sulfate Ir [MSIR] 15 mg PO Q6H PRN 11/22/22 11/22/22 History Prochlorperazine [Compazine] 10 mg PO Q6H PRN 11/22/22 11/22/22 History Allergies Allergy/AdvReac Type Severity Reaction Status Date / Time No Known Allergies Allergy Verified 11/22/22 09:31 Physical Exam Vitals: Vital Signs Temp Pulse Resp BP Pulse Ox FiO2 11/25/22 10:00 78 22 98 11/25/22 09:30 78 22 98 11/25/22 09:27 30 11/25/22 09:00 75 22 98 11/25/22 08:30 76 22 99 11/25/22 08:00 98.7 F 75 22 98 30 11/25/22 07:30 75 22 97 11/25/22 07:00 75 22 97 11/25/22 06:30 77 22 98 11/25/22 06:00 76 24 100/61 98 11/25/22 05:30 75 22 99 11/25/22 05:00 99 F 75 23 100 11/25/22 04:30 78 22 100 11/25/22 04:00 90 24 99 11/25/22 03:30 78 22 100 11/25/22 03:08 50 11/25/22 03:00 78 24 100 11/25/22 02:58 30 11/25/22 02:30 79 22 100 11/25/22 02:00 75 28 H 100 11/25/22 01:30 75 25 H 100 11/25/22 01:00 77 25 H 100 11/25/22 00:30 79 24 100 11/25/22 00:00 76 23 99 50 11/24/22 23:51 30 11/24/22 23:30 76 25 H 99 11/24/22 23:00 75 22 98 11/24/22 22:30 79 25 H 99 11/24/22 22:00 75 22 98 11/24/22 21:30 75 22 99 11/24/22 21:00 75 22 100 11/24/22 20:30 74 20 99 11/24/22 20:00 98 F 74 25 H 98 50 11/24/22 19:42 30 11/24/22 19:30 73 28 H 99 11/24/22 19:00 22 99 11/24/22 18:30 22 99 11/24/22 18:00 64 22 99 11/24/22 17:30 65 22 99 11/24/22 17:00 65 22 100 11/24/22 16:30 73 22 100 11/24/22 16:12 30 11/24/22 16:00 98.3 F 78 22 100 50 11/24/22 15:30 74 22 100 11/24/22 15:00 70 22 99 11/24/22 14:30 69 22 100 11/24/22 14:00 68 20 100 11/24/22 13:30 69 22 99 11/24/22 13:00 68 22 100 11/24/22 12:30 70 23 99 11/24/22 12:23 30 11/24/22 12:00 97.7 F 66 22 98 30 11/24/22 11:57 50 Intake and Output 11/24/22 11/25/22 11/25/22 22:59 06:59 14:59 Intake Total 2726.924 8781.298 784.243 Output Total 50 88 45 Balance 451.438 0846.298 739.243 Intake: IV 822 1048 438 0.9 NS KVO 20 40 20 Art Line 42 48 18 Dextrose 5% in Water 1, 700 800 300 000 ml @ 100 mls/hr IV . Q11H [facility] with Sodium Bicarb (1 Meq/ml) 100 ml Rx#:[id number] Invasive Line 6 60 60 Piperacillin-Tazobactam 3 100 100 .375 gm In Sodium Chloride 0.9% 100 ml @ 25 mls/hr IVPB Q8HR [facility] Rx# :[id number] Intake, IV Titration 198.260 363.298 346.243 Amount Norepinephrine 32 mg In 44.385 122.178 219.667 Sodium Chloride 0.9% 218 ml @ 0.03 MCG/KG/MIN 0. 914 mls/hr IV .Q24H [facility] Rx#:[id number] Vasopressin 20 unit In 51 46.818 Sodium Chloride 0.9% 50 ml @ 0.03 UNITS/MIN 4.59 mls/hr IV .Q11H7M [facility] Rx# :[id number] fentaNYL (PF). 1,000 mcg 13.335 In Sodium Chloride 0.9% 80 ml @ 0.5 MCG/KG/HR 3. 175 mls/hr IV .Q24H [facility] Rx#:[id number] propofoL 1,000 mg In 89.54 194.302 126.576 Empty Bag 1 bag @ 15 MCG/ KG/MIN 5.715 mls/hr IV . [id number] [facility] Rx#:[id number] Output: Urine 50 88 45 Other: Voiding Method Indwelling Catheter Indwelling Catheter Indwelling Catheter Weight 70.8 kg 70.8 kg ABP, PAP, CO, CI - Last 8 Hours Arterial Blood Pressure 102/51 Arterial Blood Pressure 100/52 Arterial Blood Pressure 103/52 Arterial Blood Pressure 101/51 Arterial Blood Pressure 96/48 Arterial Blood Pressure 95/47 Arterial Blood Pressure 98/47 Arterial Blood Pressure 97/46 Arterial Blood Pressure 99/58 Arterial Blood Pressure 95/60 Arterial Blood Pressure 118/45 Arterial Blood Pressure 109/45 Arterial Blood Pressure 112/46 Patient is sedated and on the vent Examination of the heart S1 and S2 Examination of the lungs bilateral breath sounds are heard Abdomen is soft nontender Examination of the lower extremities shows no significant edema Results - Lab Results Most recent lab results ABG pH 7.33 (7.35-7.45) L 11/25/22 05:50 ABG pCO2 42 mmHg (35-45) 11/25/22 05:50 ABG pO2 94 mmHg (83-108) 11/25/22 05:50 ABG HCO3 22 mmol/L (21-25) 11/25/22 05:50 ABG O2 Saturation 97.0 % (94-97) 11/25/22 05:50 Calcium 7.3 mg/dL (8.4-10.2) L 11/25/22 04:51 Magnesium 2.0 mg/dL (1.6-2.3) 11/23/22 21:52 11/25/22 04:51 11/25/22 04:51 Assessment and Plan Assessment: 1. Acute kidney injury ATN from low blood pressure currently oliguric. UA was completely benign on 11/21/2022. No obstruction noted on CT of the abdomen on 11/22/2022 2. Left renal cysts with one cyst noted to have thin septation. 3. Cholelithiasis and cholecystitis status post laparoscopic cholecystectomy on 11/24/2022 4. Status post cardiac arrest Plan: Change IV bicarb to D5W with 150 mEq of sodium bicarbonate Continue pressors Continue to avoid nephrotoxic agents Hold Neurontin Repeat UA We will continue to assess for need for renal replacement therapy on a daily basis. Thank you for the consultation. We will continue to follow the patient with you during his hospitalization.
[2022-11-25] MEDS: ENOXAPARIN 30 MG/0.3 ML SYRINGE SQ SCH (11:55)
--- NOTE | 2022-11-25 12:13 | P.PN ---
Subjective Progress Note Date: 11/25/22 Patient seen and evaluated at bedside. Patient is intubated and sedated. No overnight events Objective - Vital Signs Vital signs: Vital Signs Temp 98.4 F 11/25/22 12:00 Pulse 76 11/25/22 12:00 Resp 22 11/25/22 12:00 BP 100/61 11/25/22 06:00 Pulse Ox 100 11/25/22 12:00 FiO2 30 11/25/22 12:00 Intake & Output 11/24/22 11/25/22 11/25/22 18:59 06:59 18:59 Intake Total 2591.462 1780.601 8273.679 Output Total 107 106 90 Balance 2484.462 7993.439 8581.679 Weight 70.8 kg 70.8 kg Intake: IV 1556 1416 756 0.9 NS KVO 60 20 Art Line 66 66 36 Dextrose 5% in Water 1, 1300 1100 600 000 ml @ 100 mls/hr IV . Q11H [facility] with Sodium Bicarb (1 Meq/ml) 100 ml Rx#:[id number] Invasive Line 6 90 90 Piperacillin-Tazobactam 3 100 100 100 .375 gm In Sodium Chloride 0.9% 100 ml @ 25 mls/hr IVPB Q8HR [facility] Rx# :[id number] Intake, IV Titration 975.462 363.298 369.679 Amount Norepinephrine 32 mg In 104.240 122.178 243.103 Sodium Chloride 0.9% 218 ml @ 0.03 MCG/KG/MIN 0. 914 mls/hr IV .Q24H [facility] Rx#:[id number] Norepinephrine 4 mg In 508 Sodium Chloride 0.9% 250 ml @ 0.05 MCG/KG/MIN 12. 097 mls/hr IV .Q21H [facility] Rx#:[id number] Vasopressin 20 unit In 51 46.818 Sodium Chloride 0.9% 50 ml @ 0.03 UNITS/MIN 4.59 mls/hr IV .Q11H7M [facility] Rx# :[id number] fentaNYL (PF). 1,000 mcg 69.638 In Sodium Chloride 0.9% 80 ml @ 0.5 MCG/KG/HR 3. 175 mls/hr IV .Q24H [facility] Rx#:[id number] propofoL 1,000 mg In 242.584 194.302 126.576 Empty Bag 1 bag @ 15 MCG/ KG/MIN 5.715 mls/hr IV . [id number] [facility] Rx#:[id number] Oral 60 Tube Feeding 10 Other 30 Output: Urine 107 106 90 Other: Voiding Method Indwelling Catheter Indwelling Catheter Indwelling Catheter ABP, PAP, CO, CI - Last Documented Arterial Blood Pressure 98/49 - Exam Gen. sedated Cardiovascular regular in rhythm Pulmonary intubated on ventilator requiring increased PEEP Abdomen soft, nondistended, no guarding or rebound tenderness surgical incisions clean dry and intact - Labs CBC & Chem 7: 11/25/22 04:51 11/25/22 04:51 Labs: Abnormal Lab Results - Last 24 Hours (Table) 11/24/22 11/24/22 11/25/22 Range/Units 17:59 23:20 04:51 WBC 11.3 H (3.8-10.6) k/uL RBC 3.88 L (4.30-5.90) m/uL Hgb 11.8 L (13.0-17.5) gm/dL Hct 35.5 L (39.0-53.0) % Neutrophils # 9.1 H (1.3-7.7) k/uL Lymphocytes # 0.6 L (1.0-4.8) k/uL Monocytes # 1.3 H (0-1.0) k/uL ABG pH (7.35-7.45) Sodium (137-145) mmol/L Potassium (3.5-5.1) mmol/L Carbon Dioxide (22-30) mmol/L BUN (9-20) mg/dL Creatinine (0.66-1.25) mg/dL Glucose (74-99) mg/dL POC Glucose (mg/dL) 183 H 180 H (70-110) mg/dL Calcium (8.4-10.2) mg/dL TSH (0.465-4.680) mIU/L 11/25/22 11/25/22 11/25/22 Range/Units 04:51 04:51 05:50 WBC (3.8-10.6) k/uL RBC (4.30-5.90) m/uL Hgb (13.0-17.5) gm/dL Hct (39.0-53.0) % Neutrophils # (1.3-7.7) k/uL Lymphocytes # (1.0-4.8) k/uL Monocytes # (0-1.0) k/uL ABG pH 7.33 L (7.35-7.45) Sodium 130 L (137-145) mmol/L Potassium 3.3 L (3.5-5.1) mmol/L Carbon Dioxide 18 L (22-30) mmol/L BUN 27 H (9-20) mg/dL Creatinine 2.25 H (0.66-1.25) mg/dL Glucose 173 H (74-99) mg/dL POC Glucose (mg/dL) (70-110) mg/dL Calcium 7.3 L (8.4-10.2) mg/dL TSH 0.241 L (0.465-4.680) mIU/L 11/25/22 11/25/22 Range/Units 06:07 11:46 WBC (3.8-10.6) k/uL RBC (4.30-5.90) m/uL Hgb (13.0-17.5) gm/dL Hct (39.0-53.0) % Neutrophils # (1.3-7.7) k/uL Lymphocytes # (1.0-4.8) k/uL Monocytes # (0-1.0) k/uL ABG pH (7.35-7.45) Sodium (137-145) mmol/L Potassium (3.5-5.1) mmol/L Carbon Dioxide (22-30) mmol/L BUN (9-20) mg/dL Creatinine (0.66-1.25) mg/dL Glucose (74-99) mg/dL POC Glucose (mg/dL) 172 H 158 H (70-110) mg/dL Calcium (8.4-10.2) mg/dL TSH (0.465-4.680) mIU/L Microbiology - Last 24 Hours (Table) 11/22/22 05:32 Stool Culture - Final Stool Assessment and Plan Assessment: 77-year-old male status post cholecystectomy Status post cardiac arrest Patient still requiring significant amount of pressor support and increased PEEP 1 ventilator. Leukocytosis resolving with broad-spectrum antibiotics. Continue to defer care to ICU. No intervention required from surgery standpoint
[2022-11-25 12:22] LABS: Amorphous Sediment,Urine Rare /hpf; Appearance,Urine Turbid (Clear); Bilirubin,Urine Negative (Negative); Blood,Urine Small (Negative); Color,Urine Light Red; Glucose,Urine (UA) Negative (Negative); Ketones,Urine Negative (Negative); Leukocyte Esterase,Urine Negative (Negative); Nitrite,Urine Negative (Negative); Protein,Urine 1+ (Negative); RBC,Urine 6 /hpf (0-5); Squamous Epithelial Cell,Urine <1 /hpf (0-4); Uric Acid Crystals,Urine Moderate /hpf; Urobilinogen,Urine <2.0 mg/dL (<2.0); WBC,Urine 4 /hpf (0-5)
[2022-11-25] MEDS: DEXTROSE 5% IN WATER 1,000 ML with SODIUM BICARB (1 MEQ/ML) 150 ML IV SCH (13:07)
--- NOTE | 2022-11-25 14:15 | P.PN ---
Subjective Progress Note Date: 11/25/22 Progress note: Patient is still on vent support. Unable to wean. Continues to be on pressors with norepinephrine and vasopressin. BP 93/47, heart rate 76 bpm, Hemoglobin 9.8, AST 43, creatinine 2.25, sodium 130, potassium 3.3 Telemetry shows sinus rhythm with no arrhythmias History of Present Illness: The patient is a 77-year-old male who underwent cholecystectomy yesterday and later on had cardiopulmonary arrest requiring prolonged CPR and intubation. He is in the ICU and cardiac consultation was requested. He was admitted with abdominal discomfort, constipation his preop CAT scan showed distention of the colon and the cecum. He has a history of melanoma with metastasis has been followed at [facility]. Reviewing the records during this admission there is no diagnosis of cardiac disease in the past, myocardial infarction, CHF or malignant arrhythmia. During the code he had mechanical electrical dissociation with no documented feet he or asystole. He is in sinus mechanism at this time on vasopressors with no urinary output. His EKG did not show any acute ST segment changes. No other cardiac history is available. He has a history of hypertension and hyperlipidemia. Medications: At home Lipitor 10 mg daily, Zestoretic 2012-/2 mg daily, Pepcid, gabapentin, Compazine, Plavix 75 mg daily, hydrocodone Review of Systems: Could not be obtained, patient intubated Physical Examination: Head: Normocephalic. Eyes: Sclerae nonicteric. Neck: Good carotid upstroke, no bruit, no jugular venous distention. Lungs: On vent support, ET tube in place Clear to auscultation anteriorly. Heart: Regular rate and rhythm, S1-S2, no S3, no rub. Systolic ejection murmur. Abdomen: Soft hypoactive bowel sounds no organomegaly. Extremities: No edema, intact distal pulses. Under sedation EKG: Sinus mechanism with low voltage and evidence of anterior wall myocardial infarction of unknown duration Echocardiogram showed severely reduced LV systolic function including the 25-30% with anteroapical wall hypokinesia Impression: 1. Status post cardiac arrest, etiology unclear. Back in sinus mechanism post CPR 2. Status post cholecystectomy with gangrenous cholecystitis 3. Severe hypertension related to cardiac arrest 4. History of metastatic melanoma 5. Troponin elevation most likely represent type II myocardial infarction secondary to the cardiac arrest. 6. HFrEF with concerns of ischemic cardiomyopathy Plan: The troponin elevation is most likely representing a type II myocardial infarction secondary to the cardiac arrest Following functions, urinary output is low, probably ATN Depending on his progress further recommendations will be made regarding any interventions. We'll try to communicate with the family and try to obtain the records, prognosis is guarded. Thank you for this consult we will follow with you. Objective - Vital Signs Vital signs: Vital Signs Temp 98.4 F 11/25/22 12:00 Pulse 76 11/25/22 14:00 Resp 22 11/25/22 14:00 BP 100/61 11/25/22 06:00 Pulse Ox 99 11/25/22 14:00 FiO2 30 11/25/22 12:02 Intake & Output 11/24/22 11/25/22 11/25/22 18:59 06:59 18:59 Intake Total 2591.462 9622.059 5407.679 Output Total 107 106 90 Balance 2484.462 7551.779 2205.679 Weight 70.8 kg 70.8 kg Intake: IV 1556 1416 756 0.9 NS KVO 60 20 Art Line 66 66 36 Dextrose 5% in Water 1, 1300 1100 600 000 ml @ 100 mls/hr IV . Q11H [facility] with Sodium Bicarb (1 Meq/ml) 100 ml Rx#:[id number] Invasive Line 6 90 90 Piperacillin-Tazobactam 3 100 100 100 .375 gm In Sodium Chloride 0.9% 100 ml @ 25 mls/hr IVPB Q8HR [facility] Rx# :[id number] Intake, IV Titration 975.462 363.298 369.679 Amount Norepinephrine 32 mg In 104.240 122.178 243.103 Sodium Chloride 0.9% 218 ml @ 0.03 MCG/KG/MIN 0. 914 mls/hr IV .Q24H [facility] Rx#:[id number] Norepinephrine 4 mg In 508 Sodium Chloride 0.9% 250 ml @ 0.05 MCG/KG/MIN 12. 097 mls/hr IV .Q21H [facility] Rx#:[id number] Vasopressin 20 unit In 51 46.818 Sodium Chloride 0.9% 50 ml @ 0.03 UNITS/MIN 4.59 mls/hr IV .Q11H7M [facility] Rx# :[id number] fentaNYL (PF). 1,000 mcg 69.638 In Sodium Chloride 0.9% 80 ml @ 0.5 MCG/KG/HR 3. 175 mls/hr IV .Q24H [facility] Rx#:[id number] propofoL 1,000 mg In 242.584 194.302 126.576 Empty Bag 1 bag @ 15 MCG/ KG/MIN 5.715 mls/hr IV . [id number] [facility] Rx#:[id number] Oral 60 Tube Feeding 10 Other 30 Output: Urine 107 106 90 Other: Voiding Method Indwelling Catheter Indwelling Catheter Indwelling Catheter ABP, PAP, CO, CI - Last Documented Arterial Blood Pressure 93/47 - Labs CBC & Chem 7: 11/25/22 04:51 11/25/22 04:51 Labs: Abnormal Lab Results - Last 24 Hours (Table) 11/24/22 11/24/22 11/25/22 Range/Units 17:59 23:20 04:51 WBC 11.3 H (3.8-10.6) k/uL RBC 3.88 L (4.30-5.90) m/uL Hgb 11.8 L (13.0-17.5) gm/dL Hct 35.5 L (39.0-53.0) % Neutrophils # 9.1 H (1.3-7.7) k/uL Lymphocytes # 0.6 L (1.0-4.8) k/uL Monocytes # 1.3 H (0-1.0) k/uL ABG pH (7.35-7.45) Sodium (137-145) mmol/L Potassium (3.5-5.1) mmol/L Carbon Dioxide (22-30) mmol/L BUN (9-20) mg/dL Creatinine (0.66-1.25) mg/dL Glucose (74-99) mg/dL POC Glucose (mg/dL) 183 H 180 H (70-110) mg/dL Calcium (8.4-10.2) mg/dL TSH (0.465-4.680) mIU/L Urine Protein (Negative) Urine Blood (Negative) Urine RBC (0-5) /hpf Uric Acid Crystals (None) /hpf Amorphous Sediment (None) /hpf 11/25/22 11/25/22 11/25/22 Range/Units 04:51 04:51 05:50 WBC (3.8-10.6) k/uL RBC (4.30-5.90) m/uL Hgb (13.0-17.5) gm/dL Hct (39.0-53.0) % Neutrophils # (1.3-7.7) k/uL Lymphocytes # (1.0-4.8) k/uL Monocytes # (0-1.0) k/uL ABG pH 7.33 L (7.35-7.45) Sodium 130 L (137-145) mmol/L Potassium 3.3 L (3.5-5.1) mmol/L Carbon Dioxide 18 L (22-30) mmol/L BUN 27 H (9-20) mg/dL Creatinine 2.25 H (0.66-1.25) mg/dL Glucose 173 H (74-99) mg/dL POC Glucose (mg/dL) (70-110) mg/dL Calcium 7.3 L (8.4-10.2) mg/dL TSH 0.241 L (0.465-4.680) mIU/L Urine Protein (Negative) Urine Blood (Negative) Urine RBC (0-5) /hpf Uric Acid Crystals (None) /hpf Amorphous Sediment (None) /hpf 11/25/22 11/25/22 11/25/22 Range/Units 06:07 11:46 11:50 WBC (3.8-10.6) k/uL RBC (4.30-5.90) m/uL Hgb (13.0-17.5) gm/dL Hct (39.0-53.0) % Neutrophils # (1.3-7.7) k/uL Lymphocytes # (1.0-4.8) k/uL Monocytes # (0-1.0) k/uL ABG pH (7.35-7.45) Sodium (137-145) mmol/L Potassium (3.5-5.1) mmol/L Carbon Dioxide (22-30) mmol/L BUN (9-20) mg/dL Creatinine (0.66-1.25) mg/dL Glucose (74-99) mg/dL POC Glucose (mg/dL) 172 H 158 H (70-110) mg/dL Calcium (8.4-10.2) mg/dL TSH (0.465-4.680) mIU/L Urine Protein 1+ H (Negative) Urine Blood Small H (Negative) Urine RBC 6 H (0-5) /hpf Uric Acid Crystals Moderate H (None) /hpf Amorphous Sediment Rare H (None) /hpf Microbiology - Last 24 Hours (Table) 11/22/22 05:32 Stool Culture - Final Stool
[2022-11-25 17:50] LABS: Glucose,Whole Blood 132 mg/dL (70-110)
[2022-11-25 19:00] LABS: Albumin 1.7 g/dL (3.5-5.0); Bilirubin, Delta 0.2 mg/dL (0.0-0.2); Total Bilirubin 0.2 mg/dL (0.2-1.3); Total Protein 3.6 g/dL (6.3-8.2)
[2022-11-25] MEDS: FAMOTIDINE 20 MG/2 ML VIAL IV SCH (21:47)
[2022-11-25] MEDS: fentaNYL (PF). 1,000 MCG in SODIUM CHLORIDE 0.9% 80 ML IV SCH (22:58)
[2022-11-25 23:08] VITALS: RESP 22
[2022-11-26 00:01] LABS: Glucose,Whole Blood 92 mg/dL (70-110)
[2022-11-26 00:09] LABS: Glucose,Whole Blood 131 mg/dL (70-110)
[2022-11-26] MEDS: INSULIN ASPART (NovoLOG) 100 UNIT/ML VIAL SQ SCH ×3 (00:09→12:55)
[2022-11-26] MEDS: PIPERACILLIN-TAZOBACTAM 3.375 GM in SODIUM CHLORIDE 0.9% 100 ML IVPB SCH ×2 (00:42→07:54)
[2022-11-26] MEDS: DEXTROSE 5% IN WATER 1,000 ML with SODIUM BICARB (1 MEQ/ML) 150 ML IV SCH ×2 (00:43→11:36)
[2022-11-26 01:21] LABS: African American GFR (CKD) 38 (>60 ml/min/1.73 sqM); Anion Gap 5 mmol/L; Blood Urea Nitrogen 31 mg/dL (9-20); Calcium 7.1 mg/dL (8.4-10.2); Carbon Dioxide 24 mmol/L (22-30); Chloride 101 mmol/L (98-107); Glucose 127 mg/dL (74-99); Non-African American GFR(CKD) 33 (>60 ml/min/1.73 sqM); Sodium 130 mmol/L (137-145)
[2022-11-26] MEDS: POTASSIUM CHLORIDE 20 MEQ in WATER FOR INJECTION 1 100ML.BAG IVPB SCH ×2 (01:39→03:44)
[2022-11-26] MEDS: VASOPRESSIN 20 UNIT in SODIUM CHLORIDE 0.9% 50 ML IV SCH (05:22)
[2022-11-26 05:49] LABS: Glucose,Whole Blood 138 mg/dL (70-110)
[2022-11-26 05:56] LABS: ABG Base Excess 3.8 mmol/L; ABG HCO3 28 mmol/L (21-25); ABG Oxygen Saturation 95.9 % (94-97); ABG PCO2 38 mmHg (35-45); ABG PH 7.46 (7.35-7.45); ABG PO2 75 mmHg (83-108); ABG TCO2 29 mmol/L (19-24)
[2022-11-26 06:00] LABS: Allen Test Performed? No
[2022-11-26 06:17] LABS: Albumin 1.7 g/dL (3.5-5.0); Bilirubin, Delta 0.4 mg/dL (0.0-0.2); Bilirubin,Unconjugated 0.1 mg/dL (0.0-1.1); Total Bilirubin 0.5 mg/dL (0.2-1.3); Total Protein 3.6 g/dL (6.3-8.2)
[2022-11-26 06:27] LABS: Basophils % (A) 0 %; Eosinophils % (A) 0 %; HCT 34.6 % (39.0-53.0); HGB 11.6 gm/dL (13.0-17.5); Lymphocytes # (A) 0.7 k/uL (1.0-4.8); Lymphocytes % (A) 5 %; MCH 30.1 pg (25.0-35.0); MCHC 33.4 g/dL (31.0-37.0); Mean Platelet Volume 7.7; Monocytes # (A) 0.9 k/uL (0-1.0); Monocytes % (A) 7 %; Neutrophils # (A) 11.4 k/uL (1.3-7.7); Neutrophils % (A) 86 %; Platelet Count 183 k/uL (150-450); RBC 3.85 m/uL (4.30-5.90); RDW 14.9 % (11.5-15.5); WBC 13.3 k/uL (3.8-10.6)
[2022-11-26] MEDS: FAMOTIDINE 20 MG/2 ML VIAL IV SCH (08:10)
[2022-11-26] MEDS: ENOXAPARIN 30 MG/0.3 ML SYRINGE SQ SCH (08:10)
[2022-11-26] MEDS: CHLORHEXIDINE GLUCONATE 15 ML CUP MUCOUS MEM SCH (08:10)
--- NOTE | 2022-11-26 08:37 | XR ---
EXAM: XR chest 1V portable CLINICAL INDICATION:Male, 77 years old with history of Tube placement; [facility] COMPARISON: 11/25/2022 and before TECHNIQUE: Chest single view. FINDINGS: Lines/tubes/devices: ET tube tip remains about 6.4 cm above the marsha. NG tube extends into the left abdomen with its tip beyond the field of view. Left subclavian central venous line unchanged with ti p over the mid SVC. There appears to be an additional linear density extending transversely in the me dial left subclavian region, of uncertain etiology; this could be something extrinsic to the patient, correlate clinically for possible additional catheter. EKG leads and other extrinsic structures over lie the chest. Cardiomediastinum: Stable. Heart is not grossly enlarged. Atherosclerotic calcifications of the aorta . Vasculature: Mildly increased pulmonary vascular congestion. Slightly increased interstitial markings in the mid to lower lung zones, superimposed on chronic interstitial changes. Lungs/pleura: Hyperinflation with interstitial coarsening again seen, suggestive of COPD. No confluen t consolidation or pneumothorax is demonstrated. No sizable pleural effusions are seen, though the co stophrenic angles are partially excluded from the [id number]. Bones/soft tissues: Osseous structures appear grossly stable. No acute osseous abnormality is seen. R egional soft tissues appear unremarkable. IMPRESSION: 1. Lines and tubes in place, as discussed above. 2. Mildly increased pulmonary vascular congestion. Slightly increased interstitial markings in the mi d to lower lung zones, may represent edema or pneumonitis.
[2022-11-26] MEDS: GABAPENTIN 100 MG CAP PO SCH (10:17)
[2022-11-26] MEDS: NOREPINEPHRINE 32 MG in SODIUM CHLORIDE 0.9% 218 ML IV SCH (10:18)
--- NOTE | 2022-11-26 10:26 | P.PN ---
Subjective Progress Note Date: 11/26/22 Principal diagnosis: cholecystitis Patient remains on the ventilator. Unfortunately the patient remains on high dose pressors. White blood cell count 13.3, hemoglobin 11.6. Patient was started on low dose tube feeds but has high residuals. Objective - Vital Signs Vital signs: Vital Signs Temp 97.8 F 11/26/22 08:00 Pulse 68 11/26/22 09:45 Resp 22 11/26/22 09:45 BP 121/67 11/26/22 09:45 Pulse Ox 100 11/26/22 09:45 FiO2 50 11/26/22 08:00 Intake & Output 11/25/22 11/26/22 11/26/22 18:59 06:59 18:59 Intake Total 2030.595 2512.619 837.685 Output Total 199 280 85 Balance 4432.997 9403.619 752.685 Weight 70.8 kg 72.4 kg Intake: IV 1452 1652 509 0.9 NS KVO 80 80 10 Art Line 72 72 24 Dextrose 5% in Water 1, 1200 1200 400 000 ml @ 100 mls/hr IV . Q11H [facility] with Sodium Bicarb (1 Meq/ml) 100 ml Rx#:[id number] Piperacillin-Tazobactam 3 100 100 75 .375 gm In Sodium Chloride 0.9% 100 ml @ 25 mls/hr IVPB Q8HR [facility] Rx# :[id number] Potassium Chloride 20 meq 200 In Water For Injection 1 100ml.bag @ 50 mls/hr IVPB Q2H [facility] Rx#: [id number] Intake, IV Titration 478.595 600.619 258.685 Amount Norepinephrine 32 mg In 243.103 271.156 158.685 Sodium Chloride 0.9% 218 ml @ 0.03 MCG/KG/MIN 0. 914 mls/hr IV .Q24H [facility] Rx#:[id number] Vasopressin 20 unit In 51 48.884 Sodium Chloride 0.9% 50 ml @ 0.03 UNITS/MIN 4.59 mls/hr IV .Q11H7M [facility] Rx# :[id number] fentaNYL (PF). 1,000 mcg 90.911 In Sodium Chloride 0.9% 80 ml @ 0.5 MCG/KG/HR 3. 175 mls/hr IV .Q24H [facility] Rx#:[id number] propofoL 1,000 mg In 184.492 189.668 100 Empty Bag 1 bag @ 15 MCG/ KG/MIN 5.715 mls/hr IV . [id number] [facility] Rx#:[id number] Tube Feeding 70 110 40 Other 30 150 30 Output: Urine 199 280 85 Other: Voiding Method Indwelling Catheter Indwelling Catheter ABP, PAP, CO, CI - Last Documented Arterial Blood Pressure 110/58 - Exam Abdomen: Soft, mild distention, and nontender, incisions clean and dry - Labs CBC & Chem 7: 11/26/22 05:48 11/26/22 05:48 Labs: Abnormal Lab Results - Last 24 Hours (Table) 11/25/22 11/25/22 11/25/22 Range/Units 04:51 04:51 11:46 WBC (3.8-10.6) k/uL RBC (4.30-5.90) m/uL Hgb (13.0-17.5) gm/dL Hct (39.0-53.0) % Neutrophils # (1.3-7.7) k/uL Lymphocytes # (1.0-4.8) k/uL ABG pH (7.35-7.45) ABG pO2 (83-108) mmHg ABG HCO3 (21-25) mmol/L ABG Total CO2 (19-24) mmol/L Sodium (137-145) mmol/L Potassium (3.5-5.1) mmol/L BUN (9-20) mg/dL Creatinine (0.66-1.25) mg/dL Glucose (74-99) mg/dL POC Glucose (mg/dL) 158 H (70-110) mg/dL Calcium (8.4-10.2) mg/dL Delta Bilirubin (0.0-0.2) mg/dL AST 89 H (17-59) U/L Total Protein 3.6 L (6.3-8.2) g/dL Albumin 1.7 L (3.5-5.0) g/dL TSH 0.241 L (0.465-4.680) mIU/L Urine Protein (Negative) Urine Blood (Negative) Urine RBC (0-5) /hpf Uric Acid Crystals (None) /hpf Amorphous Sediment (None) /hpf 11/25/22 11/25/2223 Range/Units 11:50 17:49 00:07 WBC (3.8-10.6) k/uL RBC (4.30-5.90) m/uL Hgb (13.0-17.5) gm/dL Hct (39.0-53.0) % Neutrophils # (1.3-7.7) k/uL Lymphocytes # (1.0-4.8) k/uL ABG pH (7.35-7.45) ABG pO2 (83-108) mmHg ABG HCO3 (21-25) mmol/L ABG Total CO2 (19-24) mmol/L Sodium (137-145) mmol/L Potassium (3.5-5.1) mmol/L BUN (9-20) mg/dL Creatinine (0.66-1.25) mg/dL Glucose (74-99) mg/dL POC Glucose (mg/dL) 132 H 131 H (70-110) mg/dL Calcium (8.4-10.2) mg/dL Delta Bilirubin (0.0-0.2) mg/dL AST (17-59) U/L Total Protein (6.3-8.2) g/dL Albumin (3.5-5.0) g/dL TSH (0.465-4.680) mIU/L Urine Protein 1+ H (Negative) Urine Blood Small H (Negative) Urine RBC 6 H (0-5) /hpf Uric Acid Crystals Moderate H (None) /hpf Amorphous Sediment Rare H (None) /hpf 11/26/22 11/26/22 11/26/22 Range/Units 01:01 05:47 05:48 WBC (3.8-10.6) k/uL RBC (4.30-5.90) m/uL Hgb (13.0-17.5) gm/dL Hct (39.0-53.0) % Neutrophils # (1.3-7.7) k/uL Lymphocytes # (1.0-4.8) k/uL ABG pH (7.35-7.45) ABG pO2 (83-108) mmHg ABG HCO3 (21-25) mmol/L ABG Total CO2 (19-24) mmol/L Sodium 130 L (137-145) mmol/L Potassium 3.0 L (3.5-5.1) mmol/L BUN 31 H (9-20) mg/dL Creatinine 1.94 H (0.66-1.25) mg/dL Glucose 127 H (74-99) mg/dL POC Glucose (mg/dL) 138 H (70-110) mg/dL Calcium 7.1 L (8.4-10.2) mg/dL Delta Bilirubin 0.4 H (0.0-0.2) mg/dL AST (17-59) U/L Total Protein 3.6 L (6.3-8.2) g/dL Albumin 1.7 L (3.5-5.0) g/dL TSH (0.465-4.680) mIU/L Urine Protein (Negative) Urine Blood (Negative) Urine RBC (0-5) /hpf Uric Acid Crystals (None) /hpf Amorphous Sediment (None) /hpf 11/26/22 11/26/22 Range/Units 05:48 05:55 WBC 13.3 H (3.8-10.6) k/uL RBC 3.85 L (4.30-5.90) m/uL Hgb 11.6 L (13.0-17.5) gm/dL Hct 34.6 L (39.0-53.0) % Neutrophils # 11.4 H (1.3-7.7) k/uL Lymphocytes # 0.7 L (1.0-4.8) k/uL ABG pH 7.46 H (7.35-7.45) ABG pO2 75 L (83-108) mmHg ABG HCO3 28 H (21-25) mmol/L ABG Total CO2 29 H (19-24) mmol/L Sodium (137-145) mmol/L Potassium (3.5-5.1) mmol/L BUN (9-20) mg/dL Creatinine (0.66-1.25) mg/dL Glucose (74-99) mg/dL POC Glucose (mg/dL) (70-110) mg/dL Calcium (8.4-10.2) mg/dL Delta Bilirubin (0.0-0.2) mg/dL AST (17-59) U/L Total Protein (6.3-8.2) g/dL Albumin (3.5-5.0) g/dL TSH (0.465-4.680) mIU/L Urine Protein (Negative) Urine Blood (Negative) Urine RBC (0-5) /hpf Uric Acid Crystals (None) /hpf Amorphous Sediment (None) /hpf Microbiology - Last 24 Hours (Table) 11/22/22 05:32 Stool Culture - Final Stool Assessment and Plan Plan: Patient remains on supportive care in the ICU. The patient is not demonstrated significant improvements. Apparently family and pulmonary artery discuss and possible comfort measures. Will follow. Hold tube feeds for now.
--- NOTE | 2022-11-26 10:27 | P.PN ---
Subjective Progress Note Date: 11/26/22 Principal diagnosis: Right upper quadrant abdominal pain. Pulmonary consult dated 11/22/2022. This is a 77-year-old male with a history of melanoma, who is followed at the [facility], who presents to the emergency department, on November 21, complaining of nausea, vomiting, diarrhea, and dehydration. The patient has not been feeling well for about a week or so. Recently, the patient has been having issues with constipation, related to narcotics. Subsequent to that, the patient started taking medications to relieve the constipation, and he developed significant diarrhea and dehydration. The patient has been complaining of abdominal pain, diffusely, with some localization in the right upper quadrant. Some of this pain is epigastric and even left-sided. His past medical history is primarily positive for the melanoma, with metastasis, and he is a current every day smoker. I was called by the surgeon, because of the patient's hyponatremia, and, because the patient will eventually need a cholecystectomy. Current laboratory data includes a white count 6.2, hemoglobin 12.3, hematocrit 35.9, and a platelet count was normal. Sodium is 121, potassium 4.1, chlorides 93, CO2 17, anion gap 11, BUN 23, and creatinine 1.04. Calcium is 7.3. Albumin is 2.3. Urine is negative. Testing for influenza, RSV, and coronavirus were all negative. Computed tomography scan of the abdomen shows a low-grade colonic obstruction. Repeat computed tomography scan of the abdomen and pelvis shows ongoing distention of the colon but the cecum dilated up to 8.1 cm. In addition, there are lesions throughout the osseous structures of the abdomen and pelvis, worrisome for osseous metastatic disease, likely from his melanoma. The patient's HIDA scan suggested cholecystitis. The patient is scheduled for tentative laparoscopic cholecystectomy tomorrow. Progress note dated 11/23/2022. 77-year-old male with history of metastatic melanoma, who came to the hospital with complaints of pain in the abdomen. He was found to have cholelithiasis/cholecystitis. The patient is scheduled for a laparoscopic cholecystectomy today. He was hyponatremic initially, but today sodium, with fluid resuscitation, is 130. Currently he is on room air. I did notify the surgeon, that I thought the patient was stable for surgery. White count 5.2, hemoglobin 12.3, hematocrit 37.5, and platelet count normal. Sodium up to 03/07/2020, potassium 3.8, chlorides 103, CO2 12, anion gap 15, BUN 17, creatinine 0.93. Urine is negative. Progress note dated 11/24/2022. 77-year-old male status post laparoscopic cholecystectomy for gangrenous gallbladder. The patient apparently was transferred, from recovery area to the general medical floor, and, apparently developed a cardiopulmonary arrest, requiring a long resuscitation time of about 30 minutes. Currently, the patient is in the intensive care unit, room 257, on the ventilator. He is on the volume assist control, rate 22, tidal volume 400, FiO2 50%, and PEEP of 8. Blood gases, on 70%, show pO2 301, pCO2 28, and pH is 7.29. The patient is on propofol at 50 mcg/kg/m, norepinephrine at 40 mcg/m, vasopressin at 0.03 units per minute, fentanyl 1 mcg/kg/h, and a sodium bicarbonate ampules of sodium bicarbonate and D5W 100 mL an hour. Current labs include a white count 19.5, hemoglobin 11.6, hematocrit 36.5, with a normal platelet count. Repeat blood gases show pO2 156, pCO2 40, pH is 7.21. Sodium 136, potassium 4.3, chlorides 108, CO2 12, BUN 20, creatinine 1.32. The patient's troponin was 6.650. The patient's chest x-rays consistent with COPD, with some interstitial pneumonitis, or mild venous congestion. Progress note dated 11/25/2022. 77-year-old male status post laparoscopic cholecystectomy for gangrenous gallbladder. The patient was apparently transferred from recovery area to the general medical floor, and developed a cardiopulmonary arrest, requiring resuscitation of about 30 minutes. There was eventual return of spontaneous circulation. The patient is now seen in room 257, intensive care unit. Ventilator settings include the volume assist control, rate 22, tidal volume 400, FiO2 30%, and PEEP of 8. Blood gases show pO2 of 94, pCO2 42, and a pH is 7.32. The patient's currently on fentanyl at 0.5 mcg/kg/h, followed 45 mcg/kg/m, vasopressin at 0.03 units per minute, norepinephrine at 40 mcg/m, and sodium bicarbonate drip, with 2 ampules of sodium bicarbonate and D5W at 100 mL an hour. The patient is getting Zosyn. Labs include a white count 11.3, hemoglobin 11.8, hematocrit 35.5, and a normal platelet count. Sodium is 130, potassium 3.3, chlorides 102, CO2 18, anion gap 10, BUN 27, and creatinine 2.25. Cortisol level was adequate at 34. Chest x-ray shows a properly positioned endotracheal tube. Some basilar atelectasis or infiltrate is noted. Progress note dated 11/26/2022. 77-year-old male, status post laparoscopic cholecystectomy for gangrenous gallbladder. The patient unfortunately sustained a cardiopulmonary arrest, with a prolonged resuscitation, of about 30 minutes, and is now in the intensive care unit. The patient may have sustained a significant anoxic brain injury. Unfortunately, the patient's on high doses of both norepinephrine and vas opressin, for blood pressure support. I did have a chance to talk to the today, who thinks that she will decide to make the patient comfort care, later today. The patient is currently on the ventilator, with settings of assist control mode,, tidal volume 400, FiO2 50% PEEP of 8. Blood gases show pO2 75, pCO2 38, and a pH is 7.46. The patient's on D5W with 3 ampules of sodium bicarbonate at 100 mL an hour, norepinephrine at 41 mcg/m, vasopressin at 0.03 units per minute, propofol at 40 mcg/kg/m, fentanyl is 0.5 mcg/kg/h, and vital HP, at 10 mL an hour, with a goal of 52. The patient is currently a DO NOT RESUSCITATE. White count 13.3, hemoglobin 11.6, hematocrit 34.6, and platelet count 183,000. Sodium 130, potassium 3.7, chlorides 101, CO2 24, BUN 31, creatinine 1.94. Chest x-ray today reveals some mildly increased interstitial markings. Objective - Vital Signs Vital signs: Vital Signs Temp 97.8 F 11/26/22 08:00 Pulse 68 11/26/22 09:45 Resp 22 11/26/22 09:45 BP 121/67 11/26/22 09:45 Pulse Ox 100 11/26/22 09:45 FiO2 50 11/26/22 08:00 Intake & Output 11/25/22 11/26/22 11/26/22 18:59 06:59 18:59 Intake Total 2030.595 2512.619 837.685 Output Total 199 280 85 Balance 3024.677 1653.619 752.685 Weight 70.8 kg 72.4 kg Intake: IV 1452 1652 509 0.9 NS KVO 80 80 10 Art Line 72 72 24 Dextrose 5% in Water 1, 1200 1200 400 000 ml @ 100 mls/hr IV . Q11H [facility] with Sodium Bicarb (1 Meq/ml) 100 ml Rx#:[id number] Piperacillin-Tazobactam 3 100 100 75 .375 gm In Sodium Chloride 0.9% 100 ml @ 25 mls/hr IVPB Q8HR [facility] Rx# :[id number] Potassium Chloride 20 meq 200 In Water For Injection 1 100ml.bag @ 50 mls/hr IVPB Q2H [facility] Rx#: [id number] Intake, IV Titration 478.595 600.619 258.685 Amount Norepinephrine 32 mg In 243.103 271.156 158.685 Sodium Chloride 0.9% 218 ml @ 0.03 MCG/KG/MIN 0. 914 mls/hr IV .Q24H [facility] Rx#:[id number] Vasopressin 20 unit In 51 48.884 Sodium Chloride 0.9% 50 ml @ 0.03 UNITS/MIN 4.59 mls/hr IV .Q11H7M [facility] Rx# :[id number] fentaNYL (PF). 1,000 mcg 90.911 In Sodium Chloride 0.9% 80 ml @ 0.5 MCG/KG/HR 3. 175 mls/hr IV .Q24H [facility] Rx#:[id number] propofoL 1,000 mg In 184.492 189.668 100 Empty Bag 1 bag @ 15 MCG/ KG/MIN 5.715 mls/hr IV . [id number] [facility] Rx#:[id number] Tube Feeding 70 110 40 Other 30 150 30 Output: Urine 199 280 85 Other: Voiding Method Indwelling Catheter Indwelling Catheter ABP, PAP, CO, CI - Last Documented Arterial Blood Pressure 110/58 - Exam No acute distress, sedated, with an orally placed endotracheal tube and NG tube. HEENT examination is grossly unremarkable. Neck supple. Full range of motion. No adenopathy thyromegaly or neck vein distention. Cardiovascular examination reveals regular rhythm rate. S1-S2 normal. No S3 or S4. No discernible murmur noted. Heart rate 68 bpm. Heart sounds are distant. Lungs reveal scattered rhonchi. Minimal crackles. Breath sounds equal bilaterally. Saturations is 99 %. Abdomen soft, without bowel sounds. Incisions are clean and dry. Extremities are intact. No cyanosis clubbing or edema. Skin is without rash or lesion. Neurologic examination cannot be evaluated at this time. - Labs CBC & Chem 7: 11/26/22 05:48 11/26/22 05:48 Labs: Abnormal Lab Results - Last 24 Hours (Table) 11/25/22 11/25/22 11/25/22 Range/Units 04:51 04:51 11:46 WBC (3.8-10.6) k/uL RBC (4.30-5.90) m/uL Hgb (13.0-17.5) gm/dL Hct (39.0-53.0) % Neutrophils # (1.3-7.7) k/uL Lymphocytes # (1.0-4.8) k/uL ABG pH (7.35-7.45) ABG pO2 (83-108) mmHg ABG HCO3 (21-25) mmol/L ABG Total CO2 (19-24) mmol/L Sodium (137-145) mmol/L Potassium (3.5-5.1) mmol/L BUN (9-20) mg/dL Creatinine (0.66-1.25) mg/dL Glucose (74-99) mg/dL POC Glucose (mg/dL) 158 H (70-110) mg/dL Calcium (8.4-10.2) mg/dL Delta Bilirubin (0.0-0.2) mg/dL AST 89 H (17-59) U/L Total Protein 3.6 L (6.3-8.2) g/dL Albumin 1.7 L (3.5-5.0) g/dL TSH 0.241 L (0.465-4.680) mIU/L Urine Protein (Negative) Urine Blood (Negative) Urine RBC (0-5) /hpf Uric Acid Crystals (None) /hpf Amorphous Sediment (None) /hpf 11/25/22 11/25/22 11/26/22 Range/Units 11:50 17:49 00:07 WBC (3.8-10.6) k/uL RBC (4.30-5.90) m/uL Hgb (13.0-17.5) gm/dL Hct (39.0-53.0) % Neutrophils # (1.3-7.7) k/uL Lymphocytes # (1.0-4.8) k/uL ABG pH (7.35-7.45) ABG pO2 (83-108) mmHg ABG HCO3 (21-25) mmol/L ABG Total CO2 (19-24) mmol/L Sodium (137-145) mmol/L Potassium (3.5-5.1) mmol/L BUN (9-20) mg/dL Creatinine (0.66-1.25) mg/dL Glucose (74-99) mg/dL POC Glucose (mg/dL) 132 H 131 H (70-110) mg/dL Calcium (8.4-10.2) mg/dL Delta Bilirubin (0.0-0.2) mg/dL AST (17-59) U/L Total Protein (6.3-8.2) g/dL Albumin (3.5-5.0) g/dL TSH (0.465-4.680) mIU/L Urine Protein 1+ H (Negative) Urine Blood Small H (Negative) Urine RBC 6 H (0-5) /hpf Uric Acid Crystals Moderate H (None) /hpf Amorphous Sediment Rare H (None) /hpf 11/26/22 11/26/22 11/26/22 Range/Units 01:01 05:47 05:48 WBC (3.8-10.6) k/uL RBC (4.30-5.90) m/uL Hgb (13.0-17.5) gm/dL Hct (39.0-53.0) % Neutrophils # (1.3-7.7) k/uL Lymphocytes # (1.0-4.8) k/uL ABG pH (7.35-7.45) ABG pO2 (83-108) mmHg ABG HCO3 (21-25) mmol/L ABG Total CO2 (19-24) mmol/L Sodium 130 L (137-145) mmol/L Potassium 3.0 L (3.5-5.1) mmol/L BUN 31 H (9-20) mg/dL Creatinine 1.94 H (0.66-1.25) mg/dL Glucose 127 H (74-99) mg/dL POC Glucose (mg/dL) 138 H (70-110) mg/dL Calcium 7.1 L (8.4-10.2) mg/dL Delta Bilirubin 0.4 H (0.0-0.2) mg/dL AST (17-59) U/L Total Protein 3.6 L (6.3-8.2) g/dL Albumin 1.7 L (3.5-5.0) g/dL TSH (0.465-4.680) mIU/L Urine Protein (Negative) Urine Blood (Negative) Urine RBC (0-5) /hpf Uric Acid Crystals (None) /hpf Amorphous Sediment (None) /hpf 11/26/22 11/26/22 Range/Units 05:48 05:55 WBC 13.3 H (3.8-10.6) k/uL RBC 3.85 L (4.30-5.90) m/uL Hgb 11.6 L (13.0-17.5) gm/dL Hct 34.6 L (39.0-53.0) % Neutrophils # 11.4 H (1.3-7.7) k/uL Lymphocytes # 0.7 L (1.0-4.8) k/uL ABG pH 7.46 H (7.35-7.45) ABG pO2 75 L (83-108) mmHg ABG HCO3 28 H (21-25) mmol/L ABG Total CO2 29 H (19-24) mmol/L Sodium (137-145) mmol/L Potassium (3.5-5.1) mmol/L BUN (9-20) mg/dL Creatinine (0.66-1.25) mg/dL Glucose (74-99) mg/dL POC Glucose (mg/dL) (70-110) mg/dL Calcium (8.4-10.2) mg/dL Delta Bilirubin (0.0-0.2) mg/dL AST (17-59) U/L Total Protein (6.3-8.2) g/dL Albumin (3.5-5.0) g/dL TSH (0.465-4.680) mIU/L Urine Protein (Negative) Urine Blood (Negative) Urine RBC (0-5) /hpf Uric Acid Crystals (None) /hpf Amorphous Sediment (None) /hpf Microbiology - Last 24 Hours (Table) 11/22/22 05:32 Stool Culture - Final Stool Assessment and Plan Assessment: Acute cholecystitis, S/P laparoscopic cholecystectomy 11/23/2022, postop day #3, for gangrenous cholecystitis. Status post cardiopulmonary arrest, with prolonged resuscitation time and eventual return of spontaneous circulation, 11/23/2022. Rule out myocardial ischemia. Anion gap metabolic acidosis. Acute kidney injury, likely secondary to ATN. Severe hypotension, possibly related to myocardial injury, and/or sepsis. Hypovolemic hyponatremia. This in part related to the patient's recent nausea, vomiting, and diarrhea. History of metastatic melanoma. Plan: Plan dated 11/22/2022. The patient is examined, and observation, room 153. Is currently on room air. Is not experiencing any shortness of breath or difficulty with breathing. The patient has pain in the abdomen, diffusely, some on the right upper quadrant, most of the pain seems to be epigastric and left upper quadrant. It may be referred. The patient should get significant fluid resuscitation with saline, at 150 mL an hour. A morning electrolyte profile should be done. Additional recommendations and suggestions are forthcoming. The patient should be nothing by mouth after midnight. Additional recommendations and suggestions are forthcoming. He is stable hemodynamically, and from the respiratory standpoint. Plan dated 11/24/2019. The patient's sodium is up to 130. Initially, the sodium was 121. I increased the patient saline up to 150 mL an hour. I repeated a sodium last night at 9:00, and then he had another one today, this morning. In my opinion, the patient is appropriate for surgery today. The patient's on room air. Labs, x- rays, and medications are reviewed. We will continue to follow make recommendations where appropriate. Plan dated 11/24/2022. The exact events are unclear, but the patient did sustain a significant cardiopulmonary arrest, with prolonged cardiopulmonary resuscitation, of 30 minutes, and eventual return of spontaneous circulation. The patient's in the intensive care unit, on the mechanical ventilator. He has an anion gap metaboli c acidosis, and may have sustained a myocardial infarction. He is currently on propofol, norepinephrine, vasopressin, fentanyl, and a sodium bicarbonate drip. Labs, x-rays, and medications are reviewed. The patient's prognosis is poor, given his age, and his prolonged resuscitation. His troponin, was elevated. Additional recommendations and suggestions are forthcoming. Cardiology and nephrology should see the patient. Plan dated 11/25/2022. The patient is seen today in room 257. Unfortunately, the patient remains on a number drips including propofol, fentanyl, vasopressin, and norepinephrine. The patient is also on a sodium bicarbonate drip. Labs, x-rays, and medications are reviewed. The patient will be started on tube feedings. We'll make sure the patient gets a cortisol level and a TSH done. In addition, the patient will be cultured, including blood, urine, and sputum. The patient overall prognosis is very guarded, given his long resuscitation time 30 minutes. We will continue to follow and make recommendations were appropriate. Urine output remains at about 15-20 mL per hour. Dilaudid just discontinued. Also, lisinopril/hydrochlorothiazide is discontinued. Plan dated 11/26/2022. I had a very long talk with the patient's , who agrees, that is very likely the patient will not cover from this illness. In addition, the patient has significantly metastatic melanoma, and the [facility] physician, has stopped the patient's chemotherapy. The right from gather family members, and sometime later today, we'll make the patient comfort care. Additional recommendations are made. Prognosis is obviously very poor. Labs, x-rays, and medications are reviewed. I explained the process of comfort care to the patient's . She understands, and agrees. Time with Patient: Greater than 30
--- NOTE | 2022-11-26 11:19 | P.PN ---
Subjective Patient is seen for follow-up for acute kidney injury. He remains on large doses of pressors. Family is present at bedside and are considering comfort care measures. Urine output remains 10-15 mL per hour. Objective - Vital Signs Vital signs: Vital Signs Temp 97.8 F 11/26/22 08:00 Pulse 68 11/26/22 10:15 Resp 22 11/26/22 10:15 BP 123/69 11/26/22 10:15 Pulse Ox 100 11/26/22 10:15 FiO2 50 11/26/22 08:00 Intake & Output 11/25/22 11/26/22 11/26/22 18:59 06:59 18:59 Intake Total 2030.595 2512.619 837.685 Output Total 199 280 85 Balance 3007.998 9194.619 752.685 Weight 70.8 kg 72.4 kg Intake: IV 1452 1652 509 0.9 NS KVO 80 80 10 Art Line 72 72 24 Dextrose 5% in Water 1, 1200 1200 400 000 ml @ 100 mls/hr IV . Q11H [facility] with Sodium Bicarb (1 Meq/ml) 100 ml Rx#:[id number] Piperacillin-Tazobactam 3 100 100 75 .375 gm In Sodium Chloride 0.9% 100 ml @ 25 mls/hr IVPB Q8HR [facility] Rx# :[id number] Potassium Chloride 20 meq 200 In Water For Injection 1 100ml.bag @ 50 mls/hr IVPB Q2H [facility] Rx#: [id number] Intake, IV Titration 478.595 600.619 258.685 Amount Norepinephrine 32 mg In 243.103 271.156 158.685 Sodium Chloride 0.9% 218 ml @ 0.03 MCG/KG/MIN 0. 914 mls/hr IV .Q24H [facility] Rx#:[id number] Vasopressin 20 unit In 51 48.884 Sodium Chloride 0.9% 50 ml @ 0.03 UNITS/MIN 4.59 mls/hr IV .Q11H7M [facility] Rx# :[id number] fentaNYL (PF). 1,000 mcg 90.911 In Sodium Chloride 0.9% 80 ml @ 0.5 MCG/KG/HR 3. 175 mls/hr IV .Q24H [facility] Rx#:[id number] propofoL 1,000 mg In 184.492 189.668 100 Empty Bag 1 bag @ 15 MCG/ KG/MIN 5.715 mls/hr IV . [id number] [facility] Rx#:[id number] Tube Feeding 70 110 40 Other 30 150 30 Output: Urine 199 280 85 Other: Voiding Method Indwelling Catheter Indwelling Catheter Indwelling Catheter ABP, PAP, CO, CI - Last Documented Arterial Blood Pressure 112/60 - Exam Patient is sedated and on the vent Examination of the heart S1 and S2 Examination of the lungs bilateral breath sounds are heard Abdomen is soft nontender Examination of the lower extremities shows no significant edema - Labs CBC & Chem 7: 11/26/22 05:48 11/26/22 05:48 Labs: Abnormal Lab Results - Last 24 Hours (Table) 11/25/22 11/25/22 11/25/22 Range/Units 04:51 11:46 11:50 WBC (3.8-10.6) k/uL RBC (4.30-5.90) m/uL Hgb (13.0-17.5) gm/dL Hct (39.0-53.0) % Neutrophils # (1.3-7.7) k/uL Lymphocytes # (1.0-4.8) k/uL ABG pH (7.35-7.45) ABG pO2 (83-108) mmHg ABG HCO3 (21-25) mmol/L ABG Total CO2 (19-24) mmol/L Sodium (137-145) mmol/L Potassium (3.5-5.1) mmol/L BUN (9-20) mg/dL Creatinine (0.66-1.25) mg/dL Glucose (74-99) mg/dL POC Glucose (mg/dL) 158 H (70-110) mg/dL Calcium (8.4-10.2) mg/dL Delta Bilirubin (0.0-0.2) mg/dL AST 89 H (17-59) U/L Total Protein 3.6 L (6.3-8.2) g/dL Albumin 1.7 L (3.5-5.0) g/dL Urine Protein 1+ H (Negative) Urine Blood Small H (Negative) Urine RBC 6 H (0-5) /hpf Uric Acid Crystals Moderate H (None) /hpf Amorphous Sediment Rare H (None) /hpf 11/25/22 11/26/22 11/26/22 Range/Units 17:49 00:07 01:01 WBC (3.8-10.6) k/uL RBC (4.30-5.90) m/uL Hgb (13.0-17.5) gm/dL Hct (39.0-53.0) % Neutrophils # (1.3-7.7) k/uL Lymphocytes # (1.0-4.8) k/uL ABG pH (7.35-7.45) ABG pO2 (83-108) mmHg ABG HCO3 (21-25) mmol/L ABG Total CO2 (19-24) mmol/L Sodium 130 L (137-145) mmol/L Potassium 3.0 L (3.5-5.1) mmol/L BUN 31 H (9-20) mg/dL Creatinine 1.94 H (0.66-1.25) mg/dL Glucose 127 H (74-99) mg/dL POC Glucose (mg/dL) 132 H 131 H (70-110) mg/dL Calcium 7.1 L (8.4-10.2) mg/dL Delta Bilirubin (0.0-0.2) mg/dL AST (17-59) U/L Total Protein (6.3-8.2) g/dL Albumin (3.5-5.0) g/dL Urine Protein (Negative) Urine Blood (Negative) Urine RBC (0-5) /hpf Uric Acid Crystals (None) /hpf Amorphous Sediment (None) /hpf 11/26/22 11/26/22 11/26/22 Range/Units 05:47 05:48 05:48 WBC 13.3 H (3.8-10.6) k/uL RBC 3.85 L (4.30-5.90) m/uL Hgb 11.6 L (13.0-17.5) gm/dL Hct 34.6 L (39.0-53.0) % Neutrophils # 11.4 H (1.3-7.7) k/uL Lymphocytes # 0.7 L (1.0-4.8) k/uL ABG pH (7.35-7.45) ABG pO2 (83-108) mmHg ABG HCO3 (21-25) mmol/L ABG Total CO2 (19-24) mmol/L Sodium (137-145) mmol/L Potassium (3.5-5.1) mmol/L BUN (9-20) mg/dL Creatinine (0.66-1.25) mg/dL Glucose (74-99) mg/dL POC Glucose (mg/dL) 138 H (70-110) mg/dL Calcium (8.4-10.2) mg/dL Delta Bilirubin 0.4 H (0.0-0.2) mg/dL AST (17-59) U/L Total Protein 3.6 L (6.3-8.2) g/dL Albumin 1.7 L (3.5-5.0) g/dL Urine Protein (Negative) Urine Blood (Negative) Urine RBC (0-5) /hpf Uric Acid Crystals (None) /hpf Amorphous Sediment (None) /hpf 11/26/22 Range/Units 05:55 WBC (3.8-10.6) k/uL RBC (4.30-5.90) m/uL Hgb (13.0-17.5) gm/dL Hct (39.0-53.0) % Neutrophils # (1.3-7.7) k/uL Lymphocytes # (1.0-4.8) k/uL ABG pH 7.46 H (7.35-7.45) ABG pO2 75 L (83-108) mmHg ABG HCO3 28 H (21-25) mmol/L ABG Total CO2 29 H (19-24) mmol/L Sodium (137-145) mmol/L Potassium (3.5-5.1) mmol/L BUN (9-20) mg/dL Creatinine (0.66-1.25) mg/dL Glucose (74-99) mg/dL POC Glucose (mg/dL) (70-110) mg/dL Calcium (8.4-10.2) mg/dL Delta Bilirubin (0.0-0.2) mg/dL AST (17-59) U/L Total Protein (6.3-8.2) g/dL Albumin (3.5-5.0) g/dL Urine Protein (Negative) Urine Blood (Negative) Urine RBC (0-5) /hpf Uric Acid Crystals (None) /hpf Amorphous Sediment (None) /hpf Microbiology - Last 24 Hours (Table) 11/22/22 05:32 Stool Culture - Final Stool Assessment and Plan Assessment: 1. Acute kidney injury ATN from low blood pressure currently oliguric. UA was completely benign on 11/21/2022. No obstruction noted on CT of the abdomen on 11/22/2022 2. Left renal cysts with one cyst noted to have thin septation. 3. Cholelithiasis and cholecystitis status post laparoscopic cholecystectomy on 11/24/2022 4. Status post cardiac arrest on high-dose pressors Plan: Family is considering comfort care measures. DC bicarb drip
[2022-11-26] MEDS ORDERED: SODIUM CHLORIDE 0.9% 1,000 ML IV SCH (11:30)
[2022-11-26 11:47] VITALS: PULSE 67
[2022-11-26] MEDS ORDERED: LORazepam 2 MG/ML INJ IV PRN (13:19)
[2022-11-26] MEDS ORDERED: ATROPINE OPHTH SOLN 1% 5ML BTL SUBLINGUAL PRN (13:19)
[2022-11-26] MEDS ORDERED: MORPHINE SULFATE 4 MG/ML SYRINGE IV PRN (13:19)
[2022-11-26] MEDS ORDERED: MORPHINE SULFATE 2 MG/ML SYRINGE IV PRN (13:19)
[2022-11-26 13:23] VITALS: BP 119/73; TEMP 97.6
[2022-11-26] MEDS ORDERED: MORPHINE SULFATE (100 MG/2 ML) 100 MG in SODIUM CHLORIDE 0.9% 100 ML IV SCH (13:30)
[2022-11-26] MEDS ORDERED: SCOPOLAMINE 1 MG/72 HR PATCH TRANSDERM SCH (13:30)
--- NOTE | 2022-11-26 23:56 | PN ---
PROGRESS NOTE SUBJECTIVE: Status post cardiopulmonary arrest. Echo was reviewed. He remains on norepinephrine, vasopressin. They will go and put him into comfort care later today because he is on the ventilator. He is on bicarb. Apparently, he is deemed not resuscitate. OBJECTIVE: VITAL SIGNS: Blood pressure 120s over 60s, respiratory rate 22, pulse 68, temp 97.8. CARDIOVASCULAR: S1, S2. LUNGS: Rhonchi. ABDOMEN: Soft. ASSESSMENT: Status post laparoscopic cholecystectomy, cardiopulmonary arrest, myocardial infarction, anion gap metabolic acidosis, acute tubular necrosis, hypertension severe, hypovolemic hyponatremia, metastatic melanoma, elevated troponins, suspect a myocardial infarction, metastatic melanoma. Prognosis poor. Possibly makes comfort care per Pulmonary now. MMODL / IJN: [id number] /
--- NOTE | 2022-11-28 13:09 | CDI ---
Documentation Clarification Form Date: 11/28/22 From: Mary Kate Hadley Admit Date: 11/22/2022 03:40:00 AM Patient Name: Rickey Riojas Visit Number: [id number] Discharge Date: 11/26/2022 11:49:00 PM ATTENTION: The Clinical Documentation Specialists (CDI) and [facility] Coding Staff appreciate your assistance in clarifying documentation. Please respond to the clarification below the line at the bottom and electronically sign. The CDI & [facility] Coding staff will review the response and follow-up if needed. Please note: Queries are made part of the Legal Health Record. If you have any questions, please contact the author of this message via ITS. Dr. Michele Macdonald, Hypotension is documented in 11/24 procedure note and subsequent, possibly related to myocardial injury and/or sepsis. Additional clarification regarding the cause of hypotension is requested. Patient history/risk factors: acute cholecystitis with gangrene, Type II VT, ATN, mets to bone, hyponatremia, ileus Clinical Indicators: BPs: 11/21-11/26 101/45, 94/44, 99/52, 87/56, 73/45, 72/43 Treatment: central line placed for IV Norepinephrine 11/23 11/26 Please clarify the cause of hypotension, if known: [ ] Hypotension due to Septic Shock, was sepsis POA [ ] Hypotension due to Hypovolemic Shock [ ] Hypotension due to cardiogenic Shock [ ] Hypotension, unspecified [ ] Other, please specify [ ] Unable to determine MTDD
--- NOTE | 2022-11-30 01:20 | PN ---
PROGRESS NOTE Hypotension secondary to cardiogenic shock. MMODL / IJN: [id number] /
== END 2022-11-26 23:49 | disposition expired | DRG 417 ==
LOC: EC 21:53 → 5NMEDONC 11-22 03:40 → 1SOBS 11-22 05:26 → 4SSUR 11-23 17:16 → 2SICU 11-23 20:29
PROVIDERS: ADMIT Family Medicine; ATTEND Family Medicine
PROC: 0D9670Z Drainage of Stomach with Drainage Device, Via Natural or Artificial Opening (ICD-10-PCS; 2022-11-22)
PROC: 5A12012 Performance of Cardiac Output, Single, Manual (ICD-10-PCS; 2022-11-23)
PROC: 5A1945Z Respiratory Ventilation, 24-96 Consecutive Hours (ICD-10-PCS; 2022-11-23)
PROC: 0BH17EZ Insertion of Endotracheal Airway into Trachea, Via Natural or Artificial Opening (ICD-10-PCS; 2022-11-23)
PROC: 0FT44ZZ Resection of Gallbladder, Percutaneous Endoscopic Approach (ICD-10-PCS; principal; 2022-11-23 09:05)
PROC: 4A133B1 Monitoring of Arterial Pressure, Peripheral, Percutaneous Approach (ICD-10-PCS; 2022-11-24)
PROC: 02HV33Z Insertion of Infusion Device into Superior Vena Cava, Percutaneous Approach (ICD-10-PCS; 2022-11-24)
PROC: 3E043XZ Introduction of Vasopressor into Central Vein, Percutaneous Approach (ICD-10-PCS; 2022-11-24)
PROC: 04HY32Z Insertion of Monitoring Device into Lower Artery, Percutaneous Approach (ICD-10-PCS; 2022-11-24)
PROC: 4A133J1 Monitoring of Arterial Pulse, Peripheral, Percutaneous Approach (ICD-10-PCS; 2022-11-24)
PROC: 0DH67UZ Insertion of Feeding Device into Stomach, Via Natural or Artificial Opening (ICD-10-PCS; 2022-11-25)
DX: K81.0 Acute cholecystitis (principal); I21.A1 Myocardial infarction type 2; N17.0 Acute kidney failure with tubular necrosis; C79.51 Secondary malignant neoplasm of bone; E87.20 Acidosis, unspecified; E87.1 Hypo-osmolality and hyponatremia; K56.7 Ileus, unspecified; J84.9 Interstitial pulmonary disease, unspecified; J44.0 Chronic obstructive pulmonary disease with (acute) lower respiratory infection; I50.22 Chronic systolic (congestive) heart failure; J98.11 Atelectasis; I46.2 Cardiac arrest due to underlying cardiac condition; K82.A1 Gangrene of gallbladder in cholecystitis; I11.0 Hypertensive heart disease with heart failure; I73.9 Peripheral vascular disease, unspecified; Z51.5 Encounter for palliative care; Z66 Do not resuscitate; Z11.52 Encounter for screening for COVID-19; K59.03 Drug induced constipation; T40.605A Adverse effect of unspecified narcotics, initial encounter; E86.1 Hypovolemia; I25.5 Ischemic cardiomyopathy; E86.0 Dehydration; E78.5 Hyperlipidemia, unspecified; I25.2 Old myocardial infarction; N28.1 Cyst of kidney, acquired; F17.200 Nicotine dependence, unspecified, uncomplicated; Z79.02 Long term (current) use of antithrombotics/antiplatelets; Z79.899 Other long term (current) drug therapy; Z85.820 Personal history of malignant melanoma of skin
CPT/HCPCS: 36415; 36600; 71045; 74176; 74177; 78226; 80048; 80053; 80076; 81001; 81003; 82533; 82805; 83605; 83735; 84132; 84439; 84443; 84484; 85025; 85027; 85610; 85730; 87040; 87045; 87046; 87636; 88304; 92950; 93306; 94002; 94003; 96361; 96374; 96375; 96376; 99285